=== PATIENT | female | born 1965 | race African-American/Black ===

== ENCOUNTER 2016-11-10 09:03 | Emergency (ER) | payer BC ==
[2016-11-10 09:19] VITALS: BP 153/94; PULSE 100; TEMP 97.8; BMI 33.3
--- NOTE | 2016-11-10 10:02 | PDOC ---
History of Present Illness - General Chief Complaint: Cold Symptoms Stated Complaint: COLD SYMPTOMS Time Seen by Provider: 11/10/16 09:27 Exam Limitations: No Limitations - History of Present Illness Initial Comments: 11/10/16 09:58 Patient came to emergency department with complaints of sinus fullness, runny nose, moist nonproductive cough without fevers or drainage. States has taken only Tylenol for relief of symptoms. Eyes purulent nasal drainage, denies chest pain or palpitations. Has also concerned about an itching scalp, has been told had tinea in the past but is not taking medication for relief Timing/Duration: reports: just prior to arrival, changing over time Possible Cause: Yes: no prior episodes Associated Symptoms: reports: facial pain, headache, nasal congestion (frontal headache with congestion). denies: fever/chills Past History - Travel Traveled outside of the country in the last 30 days: No Close contact w/someone who was outside of country & ill: No - Past Medical History Allergies/Adverse Reactions: Allergies Allergy/AdvReac Type Severity Reaction Status Date / Time No Known Allergies Allergy Verified 11/10/16 09:19 Home Medications: Ambulatory Orders Olmesartan Medoxomil [Benicar (Nf)] 40 mg PO DAILY 08/22/16 HTN: Yes Suicide Attempt (Hx): No - Surgical History Abdominal Surgery: Yes (UMBILICAL HERNIA REPAIR) - Immunization History Td Vaccination: Yes Immunization Up to Date: Yes - Psycho/Social/Smoking Cessation Hx Anxiety: No Suicidal Ideation: No Smoking Status: No Smoking History: Never smoked Have you smoked in the past 12 months: No Number of Cigarettes Smoked Daily: 0 Information on smoking cessation initiated: No Hx Alcohol Use: No Drug/Substance Use Hx: No Substance Use Type: None Review of Systems - Review of Systems Able to Perform ROS?: Yes Is the patient limited Polish proficient: Yes Constitutional: Yes: Symptoms Reported, See HPI, Malaise. No: Fever, Loss of Appetite HEENTM: Yes: Symptoms Reported, See HPI, Nose Congestion, Throat Pain (with postnasal drainage). No: Eye Pain Respiratory: Yes: See HPI. No: Cough, Orthopnea, Wheezing Musculoskeletal: No: Symptoms Reported Integumentary: Yes: Symptoms Reported Neurological: Yes: See HPI, Headache. No: Symptoms reported All Other Systems: Reviewed and Negative *Physical Exam - Vital Signs Last Vital Signs Temp Pulse Resp BP Pulse Ox 97.8 F 100 H 18 153/94 97 11/10/16 09:16 11/10/16 09:16 11/10/16 09:16 11/10/16 09:16 11/10/16 09:16 - Physical Exam General Appearance: Yes: Nourished, Appropriately Dressed, Apparent Distress, Mild Distress HEENT: positive: JANEE, TMs Normal (congested but landmarks easily visualized), Nasal Congestion (clear), Rhinorrhea, Sinus Tenderness. negative: Pharynx Normal Neck: positive: Supple. negative: Lymphadenopathy (R), Lymphadenopathy (L) Respiratory/Chest: positive: Lungs Clear, Normal Breath Sounds. 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 No evidence of bacterial infection therefore we will use conservative measures only and have follow-up with PMD as needed. Tinea capitis, encouraged to follow-up with dermatology or private physician for long- term antifungal treatment *DC/Admit/Observation/Transfer Diagnosis at time of Disposition: Common cold virus - Discharge Dispostion Disposition: HOME Condition at time of disposition: Stable Admit: No - Patient Instructions Printed Discharge Instructions: DI for Common Cold Additional Instructions: Rest, drink lots of fluids: Teas, water, soups, Pedialyte Saltwater gargles Steamy showers/seem to face break up mucus Avoid contact with others until fevers and cough resolved Lots of handwashing and good hygiene Continue [id number] medications for symptomatic relief Tylenol or Motrin for fever and pain Followup with private physician in one to 2 days as needed Return to emergency department for worsened symptoms, fevers, dehydration - Post Discharge Activity Work/School Note: Back to Work
== END 2016-11-10 10:03 | disposition home or self-care (01) ==
LOC: JERFT 09:03
DX: J00 Acute nasopharyngitis [common cold] (principal)
CPT/HCPCS: 99281-25

== ENCOUNTER 2017-02-26 17:52 | Emergency (ER) | payer BC ==
[2017-02-26 18:01] VITALS: BMI 34.9
[2017-02-26] MEDS ORDERED: ONDANSETRON 4 MG/2 ML VIAL IVPUSH STA (19:45)
[2017-02-26] MEDS ORDERED: SODIUM CHLORIDE 1,000 ML IV STA ×2 (19:45→22:20)
--- NOTE | 2017-02-26 19:45 | PDOC ---
History of Present Illness - General History Source: Patient <Leodan Odom - Last Filed: 02/27/17 01:56> - General History Source: Patient Exam Limitations: No Limitations - History of Present Illness Initial Comments: 02/26/17 19:51 The patient is a 51 year old female with significant past medical history of hypertension who presents to the ED for diffuse abdominal pain and nausea that began this morning. Patient reports she was in her usual state of health prior to going to bed last night and her last meal was around 11pm last night. States she woke up with diffuse abdominal pain and nausea. Denies vomiting and diarrhea. Denies any sick contacts or recent travels. The patient denies fever, chills, cough, SOB, chest pain, and palpitations. Allergies: NKDA Social History: No alcohol, tobacco, or drug use reported. Past Surgical History: umbilical hernia repair PCP: Dr. Alexander Carrillo <Chloé Ya - Last Filed: 02/27/17 02:40> - General Chief Complaint: Nausea Stated Complaint: NAUSEA Time Seen by Provider: 02/26/17 19:45 Past History - Past Medical History HTN: Yes (NO MEDS SINCE 02/24, RAN OUT) Suicide Attempt (Hx): No - Surgical History Abdominal Surgery: Yes (UMBILICAL HERNIA REPAIR) - Immunization History Td Vaccination: Yes Immunization Up to Date: Yes - Psycho/Social/Smoking Cessation Hx Anxiety: No Suicidal Ideation: No Smoking Status: No Smoking History: Never smoked Have you smoked in the past 12 months: No Number of Cigarettes Smoked Daily: 0 Hx Alcohol Use: No Drug/Substance Use Hx: No Substance Use Type: None <Nita Odoman - Last Filed: 02/27/17 01:56> <Chloé Ya - Last Filed: 02/27/17 02:40> - Past Medical History Allergies/Adverse Reactions: Allergies Allergy/AdvReac Type Severity Reaction Status Date / Time No Known Allergies Allergy Verified 02/27/17 01:48 Home Medications: Ambulatory Orders Ondansetron [Zofran *Odt*] 4 mg SL TID #30 od.tablet 02/27/17 Review of Systems - Review of Systems Able to Perform ROS?: Yes Comments:: 02/26/17 19:51 CONSTITUTIONAL: Absent: fever, no chills, no fatigue EYES: Absent: visual changes ENT: Absent: ear pain, no sore throat CARDIOVASCULAR: Absent: chest pain, no palpitations RESPIRATORY: Absent: cough, no SOB GI: +diffuse abdominal pain, nausea Absent: no vomiting, no constipation, no diarrhea GENITOURINARY: Absent: dysuria, no frequency, no hematuria MUSCULOSKELETAL: Absent: back pain, no arthralgia, no myalgia SKIN: Absent: rash NEURO: Absent: headache <Chloé Ya - Last Filed: 02/27/17 02:40> *Physical Exam - Vital Signs Last Vital Signs Temp Pulse Resp BP Pulse Ox 98.0 F 103 H 20 178/109 96 02/26/17 17:58 02/26/17 17:58 02/26/17 17:58 02/26/17 17:58 02/26/17 17:58 <Leodan Odom - Last Filed: 02/27/17 01:56> - Vital Signs Last Vital Signs Temp Pulse Resp BP Pulse Ox 98.0 F 103 H 20 178/109 96 02/26/17 17:58 02/26/17 17:58 02/26/17 17:58 02/26/17 17:58 02/26/17 17:58 - Physical Exam Comments: 02/26/17 19:51 GENERAL: Well-appearing, well-nourished. No apparent distress. HEENT: Normocephalic, atraumatic. PERRL, EOM intact. CARDIOVASCULAR: Normal S1, S2. Regular rate and rhythm. PULMONARY: Clear to auscultation bilaterally. ABDOMEN: Soft, non-distended, non-tender. EXTREMITIES: Normal ROM in all four extremities. No gross deformities. SKIN: Warm, dry. No rash NEUROLOGICAL: No focal neurological deficits. 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 The visualized cardiac chambers are normal size and configuration. Normal unenhanced liver, gallbladder, pancreas, spleen, adrenal glands and kidneys. The stomach and abdominal small and large bowel are normal. There is no aortic aneurysm. There is no significant retroperitoneal lymphadenopathy. Moderate-sized fat containing ventral hernia is noted. The pelvic small and large bowel are normal. The appendix is normal. Uterus is enlarged at 13.1 cm and contains a small calcified fibroid. There is a 2.4 cm simple left ovarian cyst and a 2.6 cm right ovarian dermoid cyst.. Urinary bladder is unremarkable. There is no pelvic free fluid. No discrete pelvic lymphadenopathy is identified. IMPRESSION: No definite acute pathology or significant interval change. Small right ovarian dermoid cyst and small left ovarian simple cyst without pelvic free fluid. Enlarged uterus with small calcified fibroid. Moderate-sized fat containing ventral hernia. <Chloé Ya - Last Filed: 02/27/17 02:40> Medical Decision Making - Medical Decision Making 02/26/17 22:50 Dr. Odom: The scribe's documentation has been prepared under my direction and personally reviewed by me in its entirery. I confirm that the note above accurately reflects all work, treatment, procedures, and medical decision making performed by me. <Leodan Odom - Last Filed: 02/27/17 01:56> *DC/Admit/Observation/Transfer - Discharge Dispostion Admit: No <Leodan Odom - Last Filed: 02/27/17 01:56> - Attestations Scribe Attestion: 02/26/17 19:52 Documentation prepared by Chloé Ya, acting as medical imaging specialist for Leodan Odom MD/. <Chloé Ya - Last Filed: 02/27/17 02:40> Diagnosis at time of Disposition: Abdominal pain Qualifiers: Abdominal location: generalized Qualified Code(s): R10.84 - Generalized abdominal pain Ventral hernia Qualifiers: Obstruction and gangrene presence: without obstruction or gangrene Qualified Code(s): K43.9 - Ventral hernia without obstruction or gangrene - Discharge Dispostion Disposition: HOME Condition at time of disposition: Stable - Prescriptions Prescriptions: Ondansetron [Zofran *Odt*] 4 mg SL TID #30 od.tablet - Referrals Referrals: Alexander Carrillo MD [Primary Care Provider] - Yosef Manzanares MD [Staff Physician] - - Patient Instructions Printed Discharge Instructions: DI for Abdominal Pain-Adult, DI for Ventral Hernia - Post Discharge Activity Work/School Note: Back to Work
[2017-02-26 20:16] LABS: URINE APPEARANCE CLEAR; URINE BILIRUBIN NEGATIVE (NEGATIVE); URINE COLOR YELLOW; URINE GLUCOSE (UA) NEGATIVE (NEGATIVE); URINE KETONE TRACE (NEGATIVE); URINE LEUK ESTERASE NEGATIVE (NEGATIVE); URINE NITRITE NEGATIVE (NEGATIVE); URINE UROBILINOGEN NEGATIVE E.U./dl (0.2-1.0)
[2017-02-26 20:27] LABS: URINE BLOOD 3+ (NEGATIVE); URINE PROTEIN 1+ (NEGATIVE)
[2017-02-26 20:31] LABS: URINE MUCUS MANY; URINE RBC 3 /hpf (0-3); URINE WBC 4 /hpf (3-5)
[2017-02-26] MEDS ORDERED: ONDANSETRON 4 MG/2 ML VIAL ONE (21:05)
[2017-02-26 22:02] LABS: BASOPHIL 0.4 % (0-2.0); EOSINOPHIL 2.7 % (0-4.5); MCH 28.7 pg (25.7-33.7); MCHC 32.2 g/dl (32.0-36.0); MEAN CELL VOLUME 89.2 fl (80-96); MEAN PLT VOLUME 8.7 fl (7.5-11.1); NEUTROPHILS 64.1 % (42.8-82.8); PLATELET COUNT 233 K/MM3 (134-434); RDW 14.4 % (11.6-15.6); WHITE BLOOD COUNT 10.2 K/mm3 (4.0-10.0)
[2017-02-26 22:26] LABS: ALBUMIN 3.6 g/dl (3.4-5.0); ALK PHOS 59 U/L (45-117); ANION GAP 8 (8-16); BILIRUBIN,TOTAL 0.6 mg/dL (0.2-1.0); CALCIUM 8.6 mg/dL (8.5-10.1); CO2 27 mmol/L (21-32); CREATININE 0.9 mg/dL (0.55-1.02); GLUCOSE,RANDOM 97 mg/dL (74-106); SGOT/AST 63 U/L (15-37); SGPT/ALT 72 U/L (12-78); TOT PROT 7.7 g/dl (6.4-8.2)
[2017-02-27 06:01] VITALS: BP 168/90; PULSE 89; TEMP 98
== END 2017-02-27 02:04 | disposition home or self-care (01) ==
LOC: JER 17:52
PROC: 3E0337Z Introduction of Electrolytic and Water Balance Substance into Peripheral Vein, Percutaneous Approach (ICD-10-PCS; principal; 2017-02-26)
PROC: 3E033GC Introduction of Other Therapeutic Substance into Peripheral Vein, Percutaneous Approach (ICD-10-PCS; 2017-02-26)
DX: R10.84 Generalized abdominal pain (principal); K43.9 Ventral hernia without obstruction or gangrene
CPT/HCPCS: 36415; 74176-TC; 80053; 81003; 81015; 83690; 83735; 84703; 85025; 99282-25

== ENCOUNTER 2017-04-02 21:59 | Emergency (ER) | payer BC ==
[2017-04-02 22:04] VITALS: TEMP 98.2; BMI 34.1
--- NOTE | 2017-04-02 22:11 | PDOC ---
History of Present Illness - General Chief Complaint: Pain Stated Complaint: LT ARM PAIN Time Seen by Provider: 04/02/17 22:08 Past History - Past Medical History Allergies/Adverse Reactions: Allergies Allergy/AdvReac Type Severity Reaction Status Date / Time No Known Allergies Allergy Verified 04/02/17 22:04 Home Medications: Ambulatory Orders Ondansetron [Zofran *Odt*] 4 mg SL TID #30 od.tablet 02/27/17 HTN: Yes (NO MEDS SINCE 02/24, RAN OUT) Suicide Attempt (Hx): No - Surgical History Abdominal Surgery: Yes (UMBILICAL HERNIA REPAIR) - Immunization History Td Vaccination: Yes Immunization Up to Date: Yes - Psycho/Social/Smoking Cessation Hx Anxiety: No Suicidal Ideation: No Smoking Status: No Smoking History: Never smoked Have you smoked in the past 12 months: No Number of Cigarettes Smoked Daily: 0 Hx Alcohol Use: No Drug/Substance Use Hx: No Substance Use Type: None *Physical Exam - Vital Signs Last Vital Signs Temp Pulse Resp BP Pulse Ox 98.2 F 103 H 20 141/94 100 04/02/17 22:01 04/02/17 22:01 04/02/17 22:01 04/02/17 22:01 04/02/17 22:01
[2017-04-03] MEDS ORDERED: IBUPROFEN 400 MG TABLET (FP) PO ONE ×2 (00:40→00:43)
--- NOTE | 2017-04-03 00:40 | PDOC ---
History of Present Illness - General History Source: Patient Exam Limitations: No Limitations - History of Present Illness Initial Comments: 04/03/17 00:53 The patient is a 51 year old female with significant past medical history of hypertension who presents to the ED for increasing pain to the left elbow. Patient reports she has had left elbow pain for the past several months that has progressively gotten worse in the past several weeks, but comes in today for increasing and worsening pain. Denies any trauma to the area. Also complaints of some weakness to the left arm secondary to the pain. Denies any radiation of the pain or paresthesias. Patient is right hand dominant. The patient denies fever, chills, cough, SOB, chest pain, and palpitations. The patient denies abdominal pain, nausea, vomiting, and diarrhea. Allergies: NKDA Social History: No alcohol, tobacco, or drug use reported. Past Surgical History: umbilical hernia repair PCP: None reported <Chloé Ya - Last Filed: 04/03/17 00:56> - General History Source: Patient <Leodan Odom - Last Filed: 04/03/17 02:16> - General Chief Complaint: Pain Stated Complaint: LT ARM PAIN Time Seen by Provider: 04/02/17 22:08 Past History <Chloé Ya - Last Filed: 04/03/17 00:56> - Past Medical History HTN: Yes (NO MEDS SINCE 02/24, RAN OUT) Suicide Attempt (Hx): No - Surgical History Abdominal Surgery: Yes (UMBILICAL HERNIA REPAIR) - Immunization History Td Vaccination: Yes Immunization Up to Date: Yes - Psycho/Social/Smoking Cessation Hx Anxiety: No Suicidal Ideation: No Smoking Status: No Smoking History: Never smoked Have you smoked in the past 12 months: No Number of Cigarettes Smoked Daily: 0 Hx Alcohol Use: No Drug/Substance Use Hx: No Substance Use Type: None <Leodan Odom - Last Filed: 04/03/17 02:16> - Past Medical History Allergies/Adverse Reactions: Allergies Allergy/AdvReac Type Severity Reaction Status Date / Time No Known Allergies Allergy Verified 04/02/17 22:04 Home Medications: Ambulatory Orders Ibuprofen 800 mg PO TID #30 tablet 04/03/17 Methocarbamol [Robaxin -] 1,000 mg PO TID #60 tablet 04/03/17 Olmesartan Medoxomil [Benicar (Nf)] 40 mg PO DAILY 04/03/17 Review of Systems - Review of Systems Able to Perform ROS?: Yes Comments:: 04/03/17 00:53 CONSTITUTIONAL: Absent: fever, no chills, no fatigue EYES: Absent: visual changes ENT: Absent: ear pain, no sore throat CARDIOVASCULAR: Absent: chest pain, no palpitations RESPIRATORY: Absent: cough, no SOB GI: Absent: abdominal pain, no nausea, no vomiting, no constipation, no diarrhea GENITOURINARY: Absent: dysuria, no frequency, no hematuria MUSCULOSKELETAL: +left elbow pain, left arm weakness secondary to pain Absent: back pain, no myalgia SKIN: Absent: rash NEURO: Absent: headache <Chloé Ya - Last Filed: 04/03/17 00:56> *Physical Exam - Vital Signs Last Vital Signs Temp Pulse Resp BP Pulse Ox 98.2 F 103 H 20 141/94 100 04/02/17 22:01 04/02/17 22:01 04/02/17 22:01 04/02/17 22:01 04/02/17 22:01 - Physical Exam Comments: 04/03/17 00:54 GENERAL: Well-appearing, well-nourished. No apparent distress. HEENT: Normocephalic, atraumatic. PERRL, EOM intact. CARDIOVASCULAR: Normal S1, S2. Regular rate and rhythm. PULMONARY: Clear to auscultation bilaterally. ABDOMEN: Soft, non-distended, non-tender. EXTREMITIES: Normal ROM in all four extremities. Mildly tender in the lateral epicondyle of the left elbow. No gross deformities. SKIN: Warm, dry. No rash NEUROLOGICAL: No focal neurological deficits. <Chloé Ya - Last Filed: 04/03/17 00:56> - Vital Signs Last Vital Signs Temp Pulse Resp BP Pulse Ox 98.2 F 103 H 20 141/94 100 04/02/17 22:01 04/02/17 22:01 04/02/17 22:01 04/02/17 22:01 04/02/17 22:01 <Leodan Odom - Last Filed: 04/03/17 02:16> ED Treatment Course - Medications Given in the ED: ED Medications Discontinued Medications Generic Name Dose Route Start Last Admin Trade Name Misbah PRN Reason Stop Dose Admin Ibuprofen 800 mg 04/03/17 00:40 04/03/17 00:45 Motrin - PO 04/03/17 00:41 800 mg ONCE ONE Administration <Chloé Ya - Last Filed: 04/03/17 00:56> - RADIOLOGY Radiology Studies Ordered: Category Date Time Status ELBOW-LEFT [RAD] Stat Radiology 04/03/17 00:37 Ordered <Leodan Odom - Last Filed: 04/03/17 02:16> Medical Decision Making - Medical Decision Making 04/03/17 02:16 Dr. Odom: The scribe's documentation has been prepared under my direction and personally reviewed by me in its entirery. I confirm that the note above accurately reflects all work, treatment, procedures, and medical decision making performed by me. <Leodan Odom - Last Filed: 04/03/17 02:16> *DC/Admit/Observation/Transfer - Attestations Scribe Attestion: 04/03/17 00:56 Documentation prepared by Chloé Ya, acting as medical claims specialist for Leodan Odom MD/DO. <Chloé Ya - Last Filed: 04/03/17 00:56> - Discharge Dispostion Admit: No <Leodan Odom - Last Filed: 04/03/17 02:16> Diagnosis at time of Disposition: Elbow pain, left - Discharge Dispostion Disposition: HOME Condition at time of disposition: Stable - Prescriptions Prescriptions: Ibuprofen 800 mg PO TID #30 tablet Methocarbamol [Robaxin -] 1,000 mg PO TID #60 tablet - Referrals Referrals: Jimy Gooden MD [Staff Physician] - - Patient Instructions Printed Discharge Instructions: DI for Lateral Epicondylitis (Tennis Elbow), DI for Elbow Pain
[2017-04-03] MEDS ORDERED: METHOCARBAMOL 500 MG TABLET PO ONE (02:13)
[2017-04-03] MEDS ORDERED: METHOCARBAMOL 500 MG TABLET ONE (02:23)
[2017-04-03 02:27] VITALS: BP 135/86; PULSE 97
== END 2017-04-03 02:27 | disposition home or self-care (01) ==
LOC: JERFT 21:59 → JER 21:59
DX: M25.522 Pain in left elbow (principal)
CPT/HCPCS: 73070-TC-LT; 99282-25

== ENCOUNTER 2017-06-15 15:40 | Emergency (ER) | payer BC ==
[2017-06-15 15:52] VITALS: BP 151/91; PULSE 89; TEMP 97.6; BMI 33.7
[2017-06-15] MEDS ORDERED: KETOROLAC TROMETHAMINE 60 MG/2 ML VIAL IM ONE (17:19)
[2017-06-15] MEDS ORDERED: KETOROLAC TROMETHAMINE 60 MG/2 ML VIAL ONE (17:24)
--- NOTE | 2017-06-15 17:25 | PDOC ---
History of Present Illness - General Chief Complaint: Pain Stated Complaint: RT ARM SENSATION Time Seen by Provider: 06/15/17 16:43 History Source: Patient Exam Limitations: No Limitations - History of Present Illness Initial Comments: 06/15/17 17:24 06/15/17 17:25 My Chief complaint: Right shoulder pain with tingling of right forearm and hand History of present illness: Patient is a 51-year-old female with a history of hypertension and left elbow tendinitis here today with worsening pain in her right shoulder with tingling of her right forearm and hand. Patient denies any injury to her shoulder any heavy lifting or carrying of heavy items. Patient denies any neck pain. Patient denies any elbow pain. Patient reports that she's had this right shoulder pain since winter 2015. 06/15/17 17:28 Occurred: reports: other (for months per pt ) Severity: reports: severe (rt. shoulder) Upper Extremity Pain Location: right: other Method of Injury: reports: unknown Modifying Factors: improves with: None Extremity Pain Location - Extremity Pain Location Extremity Pain Locations: right: other (shoulder) Past History - Past Medical History Allergies/Adverse Reactions: Allergies Allergy/AdvReac Type Severity Reaction Status Date / Time No Known Allergies Allergy Verified 06/15/17 15:52 Home Medications: Ambulatory Orders NK [No Known Home Medication] 06/15/17 HTN: Yes Suicide Attempt (Hx): No - Surgical History Abdominal Surgery: Yes (UMBILICAL HERNIA REPAIR) - Immunization History Td Vaccination: Yes Immunization Up to Date: Yes - Psycho/Social/Smoking Cessation Hx Anxiety: No Suicidal Ideation: No Smoking Status: No Smoking History: Never smoked Have you smoked in the past 12 months: No Number of Cigarettes Smoked Daily: 0 Hx Alcohol Use: No Drug/Substance Use Hx: No Substance Use Type: None Review of Systems - Review of Systems Able to Perform ROS?: Yes Constitutional: No: Symptoms Reported HEENTM: No: Symptoms Reported Respiratory: No: Symptoms reported Cardiac (ROS): No: Symptoms Reported ABD/GI: No: Symptoms Reported : No: Symptoms Reported Musculoskeletal: Yes: Joint Pain (right shoulder ). No: Joint Swelling Integumentary: No: Symptoms Reported Neurological: Yes: Tingling (rt. forearm/hand) *Physical Exam - Vital Signs Last Vital Signs Temp Pulse Resp BP Pulse Ox 97.6 F 89 18 151/91 95 06/15/17 15:46 06/15/17 15:46 06/15/17 15:46 06/15/17 15:46 06/15/17 15:46 - Physical Exam General Appearance: Yes: Appropriately Dressed Neck: negative: Tender, Decreased range of motion, Lymphadenopathy (R), Lymphadenopathy (L), Rigidity, Tender lateral, Tender midline Respiratory/Chest: positive: Lungs Clear, Normal Breath Sounds. negative: Chest Tender, Respiratory Distress Cardiovascular: positive: Regular Rhythm, Regular Rate, S1, S2 Comments:: 06/15/17 17:22 radial pulse 4 + rt. 06/15/17 17:24 Rectal Exam: negative: other Extremity: positive: Normal Capillary Refill, Normal Inspection, Normal Range of Motion (rt. shoulder ), Tender (rt. shoulder ). negative: Swelling Integumentary: positive: Normal Color Neurologic: positive: Normal Response, Motor Strength 5/5 (rt. shoulder, elbow, wrist and all digits rt. hand ), Respond to painful stimul (rt. arm ), Responsive. negative: Numbness, Sensory Deficit (rt. arm ) Procedures - Consent Consent obtained: From Patient - Splinting Progress: 06/15/17 18:20 SHOULDER IMMOBILIZER RIGHT Medical Decision Making - Medical Decision Making 06/15/17 17:28 Patient is a 51-year-old female with a history of hypertension and left elbow tendinitis here today with worsening pain in her right shoulder with tingling of her right forearm and hand. Patient denies any injury to her shoulder any heavy lifting or carrying of heavy items. Patient denies any neck pain. Patient denies any elbow pain. Patient reports that she's had this right shoulder pain since winter 2015. RIGHT SHOULDER PAIN WITH TINGLING RT. FOREAR, HAND R/O DONITA ABNORMALITY PLAN: XRAY RT. SHOULDER DEGENERATIVE CHANGES NOTED TORADOL 30 MG IM NOW 06/15/17 18:10 FOLLOW UP WITH ORTHOPEDIST TOMORROW SHOULDER IMMOBILIZER RIGHT 06/15/17 18:26 *DC/Admit/Observation/Transfer Diagnosis at time of Disposition: Shoulder pain, right Qualifiers: Chronicity: acute Qualified Code(s): M25.511 - Pain in right shoulder - Discharge Dispostion Disposition: HOME Condition at time of disposition: Stable - Referrals Referrals: Alexander Carrillo MD [Primary Care Provider] - Cordell Jeffries MD [Staff Physician] - - Patient Instructions Additional Instructions: Avoid any strenuous activities or exercise using your right arm Wear shoulder immobilizer during the day take off at night Follow-up with orthopedist tomorrow Return to emergency room if symptoms worsen or new symptoms develop Take Naprosyn as previously prescribed Patient voiced understanding of discharge instructions and all questions were answered Thank you for choosing [facility] for your medical needs - Post Discharge Activity Work/School Note: Back to Work
== END 2017-06-15 18:27 | disposition home or self-care (01) ==
LOC: JERFT 15:40
PROC: 3E0233Z Introduction of Anti-inflammatory into Muscle, Percutaneous Approach (ICD-10-PCS; principal; 2017-06-15)
DX: M19.011 Primary osteoarthritis, right shoulder (principal); R20.2 Paresthesia of skin
CPT/HCPCS: 73030-TC-RT; 99281-25

== ENCOUNTER 2017-10-17 12:44 | Emergency (ER) | payer BC ==
[2017-10-17 13:14] VITALS: BP 157/102; PULSE 87; TEMP 98.3; BMI 34.1
--- NOTE | 2017-10-17 15:00 | PDOC ---
History of Present Illness - General Chief Complaint: Ear Problem Stated Complaint: EAR&THROAT PAIN Time Seen by Provider: 10/17/17 14:09 - History of Present Illness Initial Comments: 10/17/17 14:52 CHIEF COMPLAINT: left ear and throat pain HISTORY OF PRESENT ILLNESS: 52 yo F with hx of HTN presents to [facility] with left ear and L sided throat pain x 1 week accompanied by "a little dizziness." Patient denies any blurry vision, slurred speech, weakness, headache, fever, chills, vomiting, diarrhea. No recent travel or sick contacts. PAST MEDICAL HISTORY: Denies past medical history FAMILY HISTORY: Denies SOCIAL HISTORY: Denies tobacco, alcohol, illicit drug use. SURGICAL HISTORY: Denies ALLERGIES: No known drug allergies REVIEW OF SYSTEMS General/Constitutional: Denies fever or chills. Denies weakness. HEENT: L ear pain x 1 week, throat pain when swallowing. Denies change in vision. Denies ear pain or discharge. Cardiovascular: Denies chest pain or shortness of breath. Respiratory: Denies cough, wheezing, or hemoptysis. Gastrointestinal: Denies nausea, vomiting, diarrhea. Genitourinary: Denies dysuria, frequency, or change in urination. Musculoskeletal: Denies joint or muscle swelling or pain. Denies neck or back pain. Skin: Denies rash or easy bruising. Neurologic: "Some dizziness." Denies vertigo. PHYSICAL EXAM General Appearance: Well-appearing, appropriately dressed. No apparent distress. HEENT: Erythema and dullness to L TM. Tonsils 1+, nonerythematous, no exudate. EOMI, PERRLA, normal ENT inspection, normal voice, TMs normal, pharynx normal. No conjunctival pallor. No photophobia, scleral icterus. Neck: Supple. Trachea midline. No tenderness, rigidity, carotid bruit, stridor , lymphadenopathy, or thyromegaly. Respiratory/Chest: Lungs CTAB. Cardiovascular: RRR. S1, S2. Musculoskeletal/Extremities: Normal inspection. FROM of all extremities, normal capillary refill. Pelvis Stable. No CVA tenderness. No tenderness to extremities, pedal edema, swelling, erythema or deformity. Integumentary: Appropriate color, dry, warm. 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 Fully oriented, alert. Appropriate mood/affect. Motor strength 5/5. No appreciable EOM palsy, facial droop or sensory deficit. Past History - Past Medical History Allergies/Adverse Reactions: Allergies Allergy/AdvReac Type Severity Reaction Status Date / Time No Known Allergies Allergy Verified 10/17/17 13:11 Home Medications: Ambulatory Orders Amoxicillin - [Amoxicillin 500mg Capsule -] 500 mg PO BID #14 capsule 10/17/17 COPD: No HTN: Yes - Surgical History Abdominal Surgery: Yes (UMBILICAL HERNIA REPAIR) - Immunization History Td Vaccination: Yes Immunization Up to Date: Yes - Suicide/Smoking/Psychosocial Hx Smoking Status: No Smoking History: Never smoked Have you smoked in the past 12 months: No Number of Cigarettes Smoked Daily: 0 Hx Alcohol Use: No Drug/Substance Use Hx: No Substance Use Type: None *Physical Exam - Vital Signs Last Vital Signs Temp Pulse Resp BP Pulse Ox 98.3 F 87 16 157/102 97 10/17/17 13:11 10/17/17 13:11 10/17/17 13:11 10/17/17 13:11 10/17/17 13:11 Medical Decision Making - Medical Decision Making 10/17/17 14:59 52 yo F with hx of HTN presents to [facility] with left ear and L sided throat pain x 1 week accompanied by "a little dizziness." Clinical presentation consistent with AOM, vertigo likely secondary to ear infection. Patient is neurologically intact. Will rx amoxicillin. Advised patient to take medication as prescribed and follow up with PMD if symptoms persist. Advised patient of signs and symptoms for return to ED. Patient verbalized understanding and agrees to plan. *DC/Admit/Observation/Transfer Diagnosis at time of Disposition: Otitis media Qualifiers: Otitis media type: other nonsuppurative Chronicity: acute Laterality: left - Discharge Dispostion Disposition: HOME Condition at time of disposition: Stable Admit: No - Prescriptions Prescriptions: Amoxicillin - [Amoxicillin 500mg Capsule -] 500 mg PO BID #14 capsule - Referrals Referrals: Alexander Carrillo MD [Primary Care Provider] - - Patient Instructions Printed Discharge Instructions: Middle Ear Infection Additional Instructions: Please take medications as prescribed and follow up with your primary care doctor next week. If you develop any new headache, weakness, change in vision, loss of memoery, slurred speech, or any change in baseline behavior, or you develop any new or worsening symptoms, please return to the ER. - Post Discharge Activity
== END 2017-10-17 15:15 | disposition home or self-care (01) ==
LOC: JERFT 12:44
DX: H65.192 Other acute nonsuppurative otitis media, left ear (principal)
CPT/HCPCS: 99281-25

== ENCOUNTER 2018-01-26 17:25 | Emergency (ER) | payer BC ==
[2018-01-26 17:38] VITALS: BP 139/95; PULSE 85; TEMP 98.3; BMI 35.9
--- NOTE | 2018-01-26 17:38 | PDOC ---
Rapid Medical Evaluation Time Seen by Provider: 01/26/18 17:35 Medical Evaluation: Allergies Allergy/AdvReac Type Severity Reaction Status Date / Time No Known Allergies Allergy Verified 10/17/17 13:11 01/26/18 17:35 I have performed a brief in-person evaluation of this patient. The patient presents with a chief complaint of: "something with my ankle, sometimes i can't even walk" x 3 weeks, denies hormone use, recent travel, prolonged sitting, "has tried motrin, naproxen" Pertinent physical exam findings: tenderness to medial L ankle I have ordered the following: left ankle x-ray The patient will proceed to the ED for further evaluation. Discharge Disposition - Diagnosis Ankle pain, left - Referrals Referrals: Alexander Carrillo MD [Primary Care Provider] - - Patient Instructions - Post Discharge Activity
--- NOTE | 2018-01-26 18:23 | PDOC ---
History of Present Illness - General Chief Complaint: Pain Stated Complaint: LEFT LEG PAIN Time Seen by Provider: 01/26/18 17:35 History Source: Patient - History of Present Illness Occurred: reports: other Severity: Yes: moderate Lower Extremity Pain Location: left: ankle Past History - Past Medical History Allergies/Adverse Reactions: Allergies Allergy/AdvReac Type Severity Reaction Status Date / Time No Known Allergies Allergy Verified 01/26/18 17:35 Home Medications: Ambulatory Orders NK [No Known Home Medication] 01/26/18 COPD: No HTN: Yes - Surgical History Abdominal Surgery: Yes (UMBILICAL HERNIA REPAIR) - Immunization History Td Vaccination: Yes Immunization Up to Date: Yes - Suicide/Smoking/Psychosocial Hx Smoking Status: No Smoking History: Never smoked Have you smoked in the past 12 months: No Number of Cigarettes Smoked Daily: 0 Information on smoking cessation initiated: No Hx Alcohol Use: No Drug/Substance Use Hx: No Substance Use Type: None Review of Systems - Review of Systems Constitutional: No: Chills, Fever Musculoskeletal: Yes: Joint Pain. No: Joint Swelling *Physical Exam - Vital Signs Last Vital Signs Temp Pulse Resp BP Pulse Ox 98.3 F 85 18 139/95 100 01/26/18 17:35 01/26/18 17:35 01/26/18 17:35 01/26/18 17:35 01/26/18 17:35 - Physical Exam General Appearance: Yes: Appropriately Dressed. No: Apparent Distress HEENT: positive: Normal Voice Neck: positive: Supple Respiratory/Chest: negative: Respiratory Distress Extremity: positive: Normal Inspection, Tender. negative: Swelling Integumentary: positive: Dry, Warm Neurologic: positive: Fully Oriented, Alert, Normal Mood/Affect Medical Decision Making - Medical Decision Making 01/26/18 18:21 52-year-old female, history of hypertension, here with atraumatic left ankle pain 3 weeks. States pain constant and worse with weight bearing. Taking over -the-counter meds with some relief but states pain persists so decided to come in for evaluation today. Denies any joint swelling, fever or chills. No history of gout. No new medication. Patient well-appearing and stable with significant tenderness to palpation to medial malleolus of left ankle. No obvious swelling and no signs of infection. X-ray ordered from triage and pending 01/26/18 18:55 X-ray read as findings consistent with old fracture to medial malleolus, no acute fractures identified as per radiologist. Patient informed of report and deneis any known fx to site. Augusto applied for comfort. Patient to continue taking [id number] pain meds as needed. Ortho referral given at this point *DC/Admit/Observation/Transfer Diagnosis at time of Disposition: Ankle pain Qualifiers: Chronicity: acute Laterality: left Qualified Code(s): M25.572 - Pain in left ankle and joints of left foot - Discharge Dispostion Disposition: HOME Condition at time of disposition: Good - Referrals Referrals: Alexander Carrillo MD [Primary Care Provider] - Cordell Jeffries MD [Staff Physician] - - Patient Instructions Printed Discharge Instructions: DI for Ankle Pain Additional Instructions: There was an old injury seen to the inner aspect of your ankle on x-ray. There were no new fractures identified by the radiologist. Wear Augusto for comfort and take Motrin as needed [id number]. At this point you should follow-up with an orthopedic. Please call Dr. Jeffries for appointment - Post Discharge Activity
== END 2018-01-26 19:01 | disposition home or self-care (01) ==
LOC: JERFT 17:25
DX: M25.572 Pain in left ankle and joints of left foot (principal); Z87.81 Personal history of (healed) traumatic fracture; I10 Essential (primary) hypertension
CPT/HCPCS: 73610-TC-LT-FY; 99281-25

== ENCOUNTER 2018-07-09 06:10 | Inpatient (IN) | payer BC, OTHER ==
[2018-07-08 11:33] VITALS: BMI 33.9
[2018-07-09] MEDS ORDERED: LIDOCAINE 1%/EPI 1:100000 (20 ML MULTI DOSE VIAL) ONE (07:13)
[2018-07-09] MEDS ORDERED: THROMBIN (BOVINE) 20,000 UNIT VIAL TP ONE ×2 (07:13→09:52)
[2018-07-09] MEDS ORDERED: BUPIVACAINE HCL/PF 0.5% (5MG/ML) 10 ML VIAL ONE (07:14)
[2018-07-09] MEDS ORDERED: GENTAMICIN SO4 80 MG/2 ML VIAL ONE (07:15)
[2018-07-09] MEDS ORDERED: PROPOFOL 20 ML ONE ×2 (07:37)
[2018-07-09] MEDS ORDERED: MIDAZOLAM HCL 2 MG/2 ML SINGLE DOSE VIAL ONE (07:37)
[2018-07-09] MEDS ORDERED: ROCURONIUM BROMIDE 50 MG/5 ML VIAL ONE (07:37)
[2018-07-09] MEDS ORDERED: LIDOCAINE HCL/PF 2% SDV 5ML VIAL ONE (07:41)
[2018-07-09] MEDS ORDERED: ONDANSETRON 4 MG/2 ML VIAL IVPUSH PRN ×2 (07:53→11:20)
[2018-07-09] MEDS ORDERED: PROMETHAZINE HCL 25 MG/1 ML VIAL IVPB PRN (07:53)
[2018-07-09] MEDS ORDERED: DEXAMETHASONE SOD PHOSPHATE 4 MG/1 ML VIAL IVPUSH PRN (07:53)
[2018-07-09] MEDS ORDERED: ONDANSETRON 4 MG/2 ML VIAL ONE ×2 (08:11→10:33)
[2018-07-09] MEDS ORDERED: DEXAMETHASONE SOD PHOSPHATE 4 MG/1 ML VIAL ONE ×2 (08:11→10:33)
[2018-07-09] MEDS ORDERED: DESFLURANE GAS 240 ML BOTTLE IH ONE (08:23)
[2018-07-09] MEDS ORDERED: ceFAZolin SODIUM 1 GM VIAL ONE ×2 (08:23→17:02)
[2018-07-09] MEDS ORDERED: VANCOMYCIN 1,000 MG VIAL (RESTRICTED TO ID ONLY) ONE (08:23)
[2018-07-09] MEDS ORDERED: ceFAZolin SODIUM 1 GM VIAL IVPB ONE (08:24)
[2018-07-09] MEDS ORDERED: VANCOMYCIN 1,000 MG VIAL (RESTRICTED TO ID ONLY) IVPB ONE (08:26)
[2018-07-09] MEDS ORDERED: LIDOCAINE 1%/EPI 1:100000 (50 ML MULTI DOSE VIAL) INF ONE (08:38)
[2018-07-09] MEDS ORDERED: THROMBIN (BOVINE) 5,000 UNIT VIAL TP ONE ×2 (09:45→10:00)
[2018-07-09] MEDS ORDERED: GELATIN, ABSORBABLE 12-7MM EACH SPONGE TP ONE (10:00)
[2018-07-09] MEDS ORDERED: ACETAMINOPHEN INJECTION 100 ML IVPB ONE (10:31)
[2018-07-09] MEDS ORDERED: GLYCOPYRROLATE 0.2 MG/1 ML VIAL ONE (10:32)
[2018-07-09] MEDS ORDERED: NEOSTIGMINE METHYLSULFATE 0.5 MG/ML - 10 ML MDV ONE (10:32)
[2018-07-09] MEDS ORDERED: HYDROmorphone *PCA* 10MG/50ML DISP.SYRIN PCA ONE ×2 (11:13→11:34)
[2018-07-09] MEDS ORDERED: diphenhydrAMINE HCL 25 MG CAPSULE (FP) PO PRN (11:20)
[2018-07-09] MEDS ORDERED: morphine CARPU-JECT 4 MG/1 ML DISP.SYRIN IVPUSH PRN (11:20)
[2018-07-09] MEDS ORDERED: HEPARIN NA (PORCINE) 5,000 UNITS/ML 1ML VIAL SQ SCH (11:30)
[2018-07-09] MEDS: HYDROmorphone *PCA* 10MG/50ML DISP.SYRIN PCA SCH (11:45)
[2018-07-09] MEDS: LACTATED RINGERS SOLUTION 1,000 ML/1,000 ML INFUS.BAG IV SCH (12:03)
[2018-07-09] MEDS: LACTATED RINGERS SOLUTION 1,000 ML IV SCH ×2 (15:41→20:43)
[2018-07-09] MEDS: DOCUSATE SODIUM 100 MG CAPSULE (FP) PO SCH (15:43)
[2018-07-09] MEDS: HEPARIN NA (PORCINE) 5,000 UNITS/ML 1ML VIAL SQ SCH ×2 (15:44→20:59)
[2018-07-09] MEDS ORDERED: DEXTROSE 5%-WATER - 100 ML IVPB ONE (17:03)
[2018-07-09] MEDS: CEFAZOLIN 1 GM in DEXTROSE 5%-WATER - 50 ML IVPB SCH (17:35)
--- NOTE | 2018-07-09 20:06 | HP ---
Admitting History and Physical - Past Medical History ...LMP: 06/11/17 - Smoking History Smoking history: Never smoked Have you smoked in the past 12 months: No Aproximately how many cigarettes per day: 0 - Alcohol/Substance Use Hx Alcohol Use: No Home Medications - Allergies Allergies/Adverse Reactions: Allergies Allergy/AdvReac Type Severity Reaction Status Date / Time No Known Allergies Allergy Verified 01/26/18 17:35 - Home Medications Home Medications: Ambulatory Orders Olmesartan Medoxomil [Benicar (Nf)] 40 mg PO DAILY 08/01/17 Amlodipine Besylate [Norvasc -] 5 mg PO DAILY 07/08/18 Aspirin 81 mg PO DAILY 07/08/18 Physical Examination Vital Signs: Vital Signs Temperature 97.8 F 07/09/18 18:43 Pulse Rate 103 H 07/09/18 18:43 Respiratory Rate 18 07/09/18 18:43 Blood Pressure 122/76 07/09/18 18:43 O2 Sat by Pulse Oximetry (%) 98 07/09/18 14:30
[2018-07-10] MEDS: CEFAZOLIN 1 GM in DEXTROSE 5%-WATER - 50 ML IVPB SCH ×2 (01:33→11:21)
--- NOTE | 2018-07-10 07:52 | PN ---
Progress Note (short form) - Note Progress Note: Pt seen and examined. States she is having some neck pain. Improved slightly with CARDIOPULMONARY TECHNOLOGIST. Has had small sips of water, chapin removed at 6am. Has not been oob yet. Denies any cp,sob, n/v/d, difficulty swallowing/breathing/speaking, headache, dizziness, palpitations, calf pain/edema, decreased motor/sensory Last Vital Signs Temp Pulse Resp BP Pulse Ox 98.3 F 92 H 20 122/83 98 07/10/18 06:17 07/10/18 06:17 07/10/18 06:17 07/10/18 06:17 07/09/18 14:30 Vital Signs Temp 98.3 F 07/10/18 06:17 Pulse 92 H 07/10/18 06:17 Resp 20 07/10/18 06:17 BP 122/83 07/10/18 06:17 Pulse Ox 98 07/09/18 14:30 Intake & Output 07/09/18 07/09/18 07/10/18 11:59 23:59 11:59 Intake Total 1500 2275 Output Total 560 1415 930 Balance 940 860 -930 Intake: IV 1500 1925 LACTATED RINGERS SOLUTION 1925 1,000 ml In 1,000 ml @ 125 mls/hr IV ASDIR TADEO Rx#:[id number] IVPB 150 Oral 200 Output: Drainage 10 65 30 Anterior Neck 45 30 Urine 250 1350 900 Chapin 800 900 Estimated Blood Loss 300 Other: Voiding Method Indwelling Catheter Bowel Movement No PE: Gen: awake, alert, nad, speaking fluently in full sentences Neck: Incision c/d/i, MARCUS in place with < 5ml in reservoir (serosanguineous), tubing stripped Neuro: R 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 RUE 4+/5 biceps/triceps/ wrist ext/flex, LUE 5/5 biceps/triceps/wrist ext/flex. SILT b/l UE's A/P: 53 y/o F w/ PMHx htn, cervical spondylosis now POD1, s/p C4-C5 corpectomy/ fusion. -TOV 6am -will removal marcus today -Will d/c CARDIOPULMONARY TECHNOLOGIST and start PO analgesia -Bowel regimen -Zofran prn -Incentive spirometry -Continue DVT prophylaxis: Heparin sq 5000units q8hrs, TEDS, scds -OOB with assist -PT plan d/w attending Dr Salazar
--- NOTE | 2018-07-10 07:53 | SURG ---
Surgery Skip Pit Worker Note Skip Pit Worker: Swathi Vargas PA-C (Suzy) Date of Service: 07/09/18 Diagnosis: Cervical Spondylosis Procedure: C4-C5 corpectomy, acdf I was present for the entirety of the operative procedure. For further detail, please refer to operative report. Visit type - Case Type Case Type: Scheduled - Emergency Emergency Visit: No - New patient This patient is new to me today: Yes Date on this admission: 07/10/18 - Critical Care Critical Care patient: No
--- NOTE | 2018-07-10 07:56 | OP ---
Operative Note - Note: Operative Date: 07/09/18 Pre-Operative Diagnosis: Cervical spondylosis Operation: C4-C5 corpectomy/anterior cervical disc fusion Findings: as dictated Implants: as dictated Post-Operative Diagnosis: Same as Pre-op Surgeon: Neno Jurado [facility] Counselor: Swathi Vargas Anesthesiologist/TRAINMAN: Genaro Varela Anesthesia: General Specimens Removed: no Estimated Blood Loss (mls): 50 (ml) Drains & Tubes with Location: BROOK drain, subcutaneous Fluid Volume Replaced (mls): 1,300 (ml) Operative Report Dictated: Yes
[2018-07-10 09:04] LABS: HEMATOCRIT 34.8 % (32.4-45.2); HEMOGLOBIN 11.2 GM/dL (10.7-15.3); MCH 29.3 pg (25.7-33.7); MCHC 32.3 g/dl (32.0-36.0); MEAN PLT VOLUME 8.2 fl (7.5-11.1); PLATELET COUNT 233 K/MM3 (134-434); RBC 3.83 M/mm3 (3.60-5.2); RDW 13.3 % (11.6-15.6); WHITE BLOOD COUNT 13.8 K/mm3 (4.0-10.0)
[2018-07-10 09:40] LABS: ANION GAP 5 MMOL/L (8-16); BLOOD UREA NITROGEN 17 mg/dL (7-18); CALCIUM 9.2 mg/dL (8.5-10.1); CHLORIDE 103 mmol/L (98-107); CO2 30 mmol/L (21-32); GLUCOSE,RANDOM 89 mg/dL (74-106); POTASSIUM 4.4 mmol/L (3.5-5.1); SODIUM 138 mmol/L (136-145)
[2018-07-10] MEDS: FERROUS SO4 325 MG TABLET (FP) PO SCH (11:09)
[2018-07-10] MEDS: VALSARTAN 160 MG TABLET (UD) PO SCH (11:09)
[2018-07-10] MEDS: amLODIPine BESYLATE 5 MG TABLET (FP) PO SCH (11:10)
[2018-07-10] MEDS: morphine SULFATE 4 MG/ML VIAL IVPUSH PRN ×3 (11:10→21:26)
[2018-07-10] MEDS: FOLIC ACID 1 MG TABLET (FP) PO SCH (11:10)
[2018-07-10] MEDS ORDERED: ceFAZolin SODIUM 1 GM VIAL ONE (11:18)
[2018-07-10] MEDS ORDERED: DEXTROSE 5%-WATER - 50 ML IVPB ONE (11:19)
--- NOTE | 2018-07-10 14:32 | PROC ---
Procedure Note Procedure: BROOK drain removed with distal tip fully intact. Ostium closed with steri strips as no dermabond available. New 4 x 4 and occlusive dressing applied to entire wound to also include old BROOK site. Tolerated well. Also, QUILTER FIXER dc'd and patient remains on PRN meds for pain relief
[2018-07-10] MEDS: DOCUSATE SODIUM 100 MG CAPSULE (FP) PO SCH ×2 (14:51→21:19)
[2018-07-10] MEDS: HEPARIN NA (PORCINE) 5,000 UNITS/ML 1ML VIAL SQ SCH ×2 (14:52→21:19)
--- NOTE | 2018-07-10 23:27 | PN ---
Progress Note, Physician - Current Medication List Current Medications: Active Medications Amlodipine Besylate (Norvasc -) 5 mg PO DAILY [facility] Last Admin: 07/10/18 11:10 Dose: 5 mg Dexamethasone Sodium Phosphate (Decadron Injection -) 4 mg IVPUSH ONCE PRN PRN Reason: NAUSEA AND/OR VOMITING Diphenhydramine HCl (Benadryl Injection -) 12.5 mg IVPUSH ONCE PRN PRN Reason: FOR ITCHING Diphenhydramine HCl (Benadryl -) 25 mg PO Q6H PRN PRN Reason: FOR ITCHING Docusate Sodium (Colace -) 100 mg PO TID [facility] Last Admin: 07/10/18 21:19 Dose: 100 mg Fentanyl (Sublimaze Injection -) 50 mcg IVPUSH [id number] PRN PRN Reason: PAIN-PACU ORDER X 4 DOSES ONLY Last Admin: 07/09/18 11:20 Dose: 50 mcg Ferrous Sulfate (Feosol -) 325 mg PO DAILY [facility] Last Admin: 07/10/18 11:09 Dose: 325 mg Folic Acid (Folic Acid -) 1 mg PO DAILY [facility] Last Admin: 07/10/18 11:10 Dose: 1 mg Heparin Sodium (Porcine) (Heparin -) 5,000 unit SQ TID [facility] Last Admin: 07/10/18 21:19 Dose: 5,000 unit Morphine Sulfate (Morphine Sulfate) 4 mg IVPUSH Q4H PRN PRN Reason: PAIN LEVEL 7 - 10 Last Admin: 07/10/18 21:26 Dose: 4 mg Ondansetron HCl (Zofran Injection) 4 mg IVPUSH Q4H PRN PRN Reason: NAUSEA AND/OR VOMITING Ondansetron HCl (Zofran Injection) 4 mg IVPUSH Q6H PRN PRN Reason: NAUSEA Oxycodone HCl (Roxicodone -) 5 mg PO Q4H PRN PRN Reason: PAIN LEVEL 1-5 Oxycodone HCl (Roxicodone -) 10 mg PO Q4H PRN PRN Reason: PAIN LEVEL 6-10 Promethazine HCl (Phenergan Injection -) 12.5 mg IVPB Q6H PRN PRN Reason: NAUSEA AND/OR VOMITING Valsartan (Diovan -) 320 mg PO DAILY [facility] Last Admin: 07/10/18 11:09 Dose: 320 mg - Objective Vital Signs: Vital Signs Temperature 98.9 F 07/10/18 16:59 Pulse Rate 77 07/10/18 16:59 Respiratory Rate 20 07/10/18 16:59 Blood Pressure 133/66 07/10/18 16:59 O2 Sat by Pulse Oximetry (%) 98 07/09/18 14:30 Labs: CBC, BMP 07/10/18 07:45 07/10/18 07:45
[2018-07-11] MEDS ORDERED: SODIUM CHLORIDE 250 ML IV STA (03:37)
[2018-07-11] MEDS ORDERED: SODIUM CHLORIDE 1,000 ML IV SCH (03:45)
[2018-07-11 03:52] LABS: ARTERIAL BLOOD GAS BASE EXCESS 4.8 meq/l (-2-2); ARTERIAL BLOOD GAS PCO2 47.4 mmHg (35-45); ARTERIAL BLOOD GAS pH 7.41 (7.35-7.45)
[2018-07-11 03:53] LABS: ALLENS TEST POSITIVE
[2018-07-11 04:03] LABS: BASO % 0.3 % (0-2.0); EOS % 0.2 % (0-4.5); HEMOGLOBIN 10.8 GM/dL (10.7-15.3); LYMPH % 19.3 % (8-40); MCHC 32.7 g/dl (32.0-36.0); MEAN CELL VOLUME 91.9 fl (80-96); MEAN PLT VOLUME 7.7 fl (7.5-11.1); MONO % 8.8 % (3.8-10.2); NEUT % 71.4 % (42.8-82.8); PLATELET COUNT 239 K/MM3 (134-434); RBC 3.59 M/mm3 (3.60-5.2); RDW 13.4 % (11.6-15.6); WHITE BLOOD COUNT 14.4 K/mm3 (4.0-10.0)
--- NOTE | 2018-07-11 04:21 | RAPID ---
Physical Examination Vital Signs: Vital Signs Temperature 98.9 F 07/10/18 16:59 Pulse Rate 77 07/10/18 16:59 Respiratory Rate 20 07/10/18 16:59 Blood Pressure 133/66 07/10/18 16:59 O2 Sat by Pulse Oximetry (%) 96 07/10/18 21:00 Rapid Response - Rapid Response Assessment: Rapid response called at 3:19am. Primary team arrived. As per nursing, patient pressed her alarm button, and when they came in, patient was noted to be altered. Patient reported to be "feeling hot" and "in pain". She was noted to staring blankly at the ceiling, and needed to be stimulated to get a reaction. Patient is POD2 for C4-C5 corpectomy/anterior cervical disc fusion. MANAGER PRIMARY CARE was discontinued this AM. Last morphine given at 9:30pm. General: awake, altered VS: BP 130/70, HI 86, RR 20, Temp 99 Heart: Regular rate and rhythm, no murmur Lungs: clear to auscultation bilaterally BGM - 150 A/P: Altered mental status, unclear etiology EKG ABG CBC, CMP, Lactic acid, Trop, CK IV NS 250ml bolus given IV NS ASDIR Blood culture UA and urine culture Head CT scan ordered
[2018-07-11 04:52] LABS: URINE APPEARANCE CLEAR; URINE BILIRUBIN NEGATIVE (<2.0 mg/dL); URINE COLOR LTYELLOW; URINE GLUCOSE (UA) NEGATIVE (NEGATIVE); URINE KETONE NEGATIVE (NEGATIVE); URINE LEUK ESTERASE NEGATIVE (NEGATIVE); URINE NITRITE NEGATIVE (NEGATIVE); URINE PROTEIN NEGATIVE (NEGATIVE); URINE UROBILINOGEN NEGATIVE mg/dL (0.2-1.0)
[2018-07-11 05:09] LABS: BLOOD UREA NITROGEN 20 mg/dL (7-18); GLUCOSE,RANDOM 134 mg/dL (74-106); SODIUM 138 mmol/L (136-145)
[2018-07-11 05:10] LABS: ALBUMIN 2.9 g/dl (3.4-5.0); ALK PHOS 46 U/L (45-117); ANION GAP 6 MMOL/L (8-16); BILIRUBIN,TOTAL 0.3 mg/dL (0.2-1); CALCIUM 7.9 mg/dL (8.5-10.1); CHLORIDE 102 mmol/L (98-107); CO2 30 mmol/L (21-32); POTASSIUM 3.7 mmol/L (3.5-5.1); SGOT/AST 23 U/L (15-37); SGPT/ALT 16 U/L (13-61); TOT PROT 6.8 g/dl (6.4-8.2)
[2018-07-11] MEDS: DOCUSATE SODIUM 100 MG CAPSULE (FP) PO SCH ×5 (05:50→21:02)
[2018-07-11] MEDS: HEPARIN NA (PORCINE) 5,000 UNITS/ML 1ML VIAL SQ SCH ×4 (05:51→21:02)
[2018-07-11] MEDS: HYDROmorphone *PCA* 10MG/50ML DISP.SYRIN PCA SCH (08:04)
[2018-07-11] MEDS: LACTATED RINGERS SOLUTION 1,000 ML/1,000 ML INFUS.BAG IV SCH (08:04)
[2018-07-11] MEDS: LACTATED RINGERS SOLUTION 1,000 ML IV SCH (08:04)
[2018-07-11] MEDS: amLODIPine BESYLATE 5 MG TABLET (FP) PO SCH (09:21)
[2018-07-11] MEDS: FERROUS SO4 325 MG TABLET (FP) PO SCH (09:21)
[2018-07-11] MEDS: FOLIC ACID 1 MG TABLET (FP) PO SCH (09:21)
[2018-07-11] MEDS: VALSARTAN 160 MG TABLET (UD) PO SCH (09:21)
[2018-07-11] MEDS: oxyCODONE HCL 5 MG TABLET PO PRN ×3 (09:22→23:38)
[2018-07-11] MEDS: ACETAMINOPHEN 325 MG TABLET (FP) PO PRN (11:44)
--- NOTE | 2018-07-11 12:09 | PN ---
Progress Note (short form) - Note Progress Note: Events of this morning reviewed. Head CT unremarkable. Patient is resting comfortably. No sequellae of earlier events noted. No significant abnormalities detected. Patient appears to be recovering well at this point and will be stable for discharge from Neurosurgery standpoint once medically clear.
--- NOTE | 2018-07-11 16:52 | EKG ---
Test Reason : Blood Pressure : / mmHG Vent. Rate : 080 BPM Atrial Rate : 080 BPM P-R Int : 140 ms QRS Dur : 088 ms QT Int : 380 ms P-R-T Axes : 030 -07 003 degrees QTc Int : 438 ms NORMAL SINUS RHYTHM VOLTAGE CRITERIA FOR LEFT VENTRICULAR HYPERTROPHY ABNORMAL ECG WHEN COMPARED WITH ECG OF 22-MAY-2015 09:51, NO SIGNIFICANT CHANGE WAS FOUND Confirmed by KEENAN GOEL, KASSY ([id number]) on 07/11/2018 4:52:05 PM Referred By: Neno Jurado Confirmed By:KASSY HUSSEIN MD
--- NOTE | 2018-07-11 23:37 | PN ---
Progress Note, Physician - Current Medication List Current Medications: Active Medications Acetaminophen (Tylenol -) 650 mg PO Q6H PRN PRN Reason: HEADACHE Last Admin: 07/11/18 11:44 Dose: 650 mg Amlodipine Besylate (Norvasc -) 5 mg PO DAILY [facility] Last Admin: 07/11/18 09:21 Dose: 5 mg Dexamethasone Sodium Phosphate (Decadron Injection -) 4 mg IVPUSH ONCE PRN PRN Reason: NAUSEA AND/OR VOMITING Diphenhydramine HCl (Benadryl Injection -) 12.5 mg IVPUSH ONCE PRN PRN Reason: FOR ITCHING Diphenhydramine HCl (Benadryl -) 25 mg PO Q6H PRN PRN Reason: FOR ITCHING Docusate Sodium (Colace -) 100 mg PO TID [facility] Last Admin: 07/11/18 21:02 Dose: 100 mg Fentanyl (Sublimaze Injection -) 50 mcg IVPUSH [id number] PRN PRN Reason: PAIN-PACU ORDER X 4 DOSES ONLY Last Admin: 07/09/18 11:20 Dose: 50 mcg Ferrous Sulfate (Feosol -) 325 mg PO DAILY [facility] Last Admin: 07/11/18 09:21 Dose: 325 mg Folic Acid (Folic Acid -) 1 mg PO DAILY [facility] Last Admin: 07/11/18 09:21 Dose: 1 mg Heparin Sodium (Porcine) (Heparin -) 5,000 unit SQ TID [facility] Last Admin: 07/11/18 21:02 Dose: 5,000 unit Morphine Sulfate (Morphine Sulfate) 4 mg IVPUSH Q4H PRN PRN Reason: PAIN LEVEL 7 - 10 Last Admin: 07/10/18 21:26 Dose: 4 mg Ondansetron HCl (Zofran Injection) 4 mg IVPUSH Q4H PRN PRN Reason: NAUSEA AND/OR VOMITING Ondansetron HCl (Zofran Injection) 4 mg IVPUSH Q6H PRN PRN Reason: NAUSEA Oxycodone HCl (Roxicodone -) 5 mg PO Q4H PRN PRN Reason: PAIN LEVEL 1-5 Last Admin: 07/11/18 18:57 Dose: 5 mg Oxycodone HCl (Roxicodone -) 10 mg PO Q4H PRN PRN Reason: PAIN LEVEL 6-10 Promethazine HCl (Phenergan Injection -) 12.5 mg IVPB Q6H PRN PRN Reason: NAUSEA AND/OR VOMITING Valsartan (Diovan -) 320 mg PO DAILY [facility] Last Admin: 07/11/18 09:21 Dose: 320 mg - Objective Vital Signs: Vital Signs Temperature 99.3 F 07/11/18 18:00 Pulse Rate 90 07/11/18 18:00 Respiratory Rate 20 07/11/18 18:00 Blood Pressure 125/74 07/11/18 18:00 O2 Sat by Pulse Oximetry (%) 97 07/11/18 09:00 Labs: CBC, BMP 07/11/18 03:50 07/11/18 03:50
[2018-07-12] MEDS: HEPARIN NA (PORCINE) 5,000 UNITS/ML 1ML VIAL SQ SCH ×3 (06:35→21:04)
[2018-07-12] MEDS: oxyCODONE HCL 5 MG TABLET PO PRN (06:35)
[2018-07-12] MEDS: DOCUSATE SODIUM 100 MG CAPSULE (FP) PO SCH ×3 (06:35→21:01)
--- NOTE | 2018-07-12 07:49 | PN ---
Progress Note (short form) - Note Progress Note: Pain management: Patient seen at bedside, RN DELIVERY discontinued today, Patient states that oxycodoe helps her. No further intervention from the dept of anesthesiology at this time.
[2018-07-12] MEDS: FOLIC ACID 1 MG TABLET (FP) PO SCH (11:27)
[2018-07-12] MEDS: amLODIPine BESYLATE 5 MG TABLET (FP) PO SCH (11:27)
[2018-07-12] MEDS: FERROUS SO4 325 MG TABLET (FP) PO SCH (11:27)
[2018-07-12] MEDS: ACETAMINOPHEN 325 MG TABLET (FP) PO PRN ×2 (11:27→21:01)
[2018-07-12] MEDS: VALSARTAN 160 MG TABLET (UD) PO SCH (11:27)
--- NOTE | 2018-07-12 16:17 | PN ---
Progress Note (short form) - Note Progress Note: Patient with significant improvement overnight. She states: "I'm much better." Reduced Left shoulder pain. Incision is clean, dry and intact. Patient should be ready for discharge soon.
[2018-07-13] MEDS: DOCUSATE SODIUM 100 MG CAPSULE (FP) PO SCH ×3 (05:55→22:36)
[2018-07-13] MEDS: HEPARIN NA (PORCINE) 5,000 UNITS/ML 1ML VIAL SQ SCH ×3 (05:56→22:49)
[2018-07-13] MEDS ORDERED: PT OWN MED DRAWER 7, Y5N ONE (10:51)
[2018-07-13] MEDS: FERROUS SO4 325 MG TABLET (FP) PO SCH (10:55)
[2018-07-13] MEDS: FOLIC ACID 1 MG TABLET (FP) PO SCH (10:56)
[2018-07-13] MEDS: VALSARTAN 160 MG TABLET (UD) PO SCH (10:56)
[2018-07-13] MEDS: amLODIPine BESYLATE 5 MG TABLET (FP) PO SCH (10:56)
--- NOTE | 2018-07-13 14:42 | PN ---
Progress Note (short form) - Note Progress Note: Patient is clear for discharge from a Neurosurgery standpoint. Wound is clean, dry and intact. Will see patient in my office in 2 weeks.
[2018-07-13] MEDS ORDERED: ALBUTEROL SO4 2.5/IPRATROPIUM 0.5 INH SOL 3 ML VIAL.NEB. NEB PRN (15:48)
[2018-07-13] MEDS: ACETAMINOPHEN 325 MG TABLET (FP) PO PRN (16:34)
--- NOTE | 2018-07-13 22:02 | PN ---
Progress Note, Physician History of Present Illness: Pt developed SOB today w/ O2 sat 92-95% - Current Medication List Current Medications: Active Medications Acetaminophen (Tylenol -) 650 mg PO Q6H PRN PRN Reason: HEADACHE Last Admin: 07/13/18 16:34 Dose: 650 mg Albuterol/Ipratropium (Duoneb -) 1 amp NEB Q6H PRN PRN Reason: SHORTNESS OF BREATH Amlodipine Besylate (Norvasc -) 5 mg PO DAILY [facility] Last Admin: 07/13/18 10:56 Dose: 5 mg Dexamethasone Sodium Phosphate (Decadron Injection -) 4 mg IVPUSH ONCE PRN PRN Reason: NAUSEA AND/OR VOMITING Diphenhydramine HCl (Benadryl Injection -) 12.5 mg IVPUSH ONCE PRN PRN Reason: FOR ITCHING Diphenhydramine HCl (Benadryl -) 25 mg PO Q6H PRN PRN Reason: FOR ITCHING Docusate Sodium (Colace -) 100 mg PO TID [facility] Last Admin: 07/13/18 13:48 Dose: 100 mg Ferrous Sulfate (Feosol -) 325 mg PO DAILY [facility] Last Admin: 07/13/18 10:55 Dose: 325 mg Folic Acid (Folic Acid -) 1 mg PO DAILY [facility] Last Admin: 07/13/18 10:56 Dose: 1 mg Heparin Sodium (Porcine) (Heparin -) 5,000 unit SQ TID [facility] Last Admin: 07/13/18 13:48 Dose: 5,000 unit Ondansetron HCl (Zofran Injection) 4 mg IVPUSH Q4H PRN PRN Reason: NAUSEA AND/OR VOMITING Ondansetron HCl (Zofran Injection) 4 mg IVPUSH Q6H PRN PRN Reason: NAUSEA Promethazine HCl (Phenergan Injection -) 12.5 mg IVPB Q6H PRN PRN Reason: NAUSEA AND/OR VOMITING Valsartan (Diovan -) 320 mg PO DAILY [facility] Last Admin: 07/13/18 10:56 Dose: 320 mg - Objective Vital Signs: Vital Signs Temperature 98.6 F 07/13/18 15:09 Pulse Rate 116 H 07/13/18 15:35 Respiratory Rate 22 H 07/13/18 15:35 Blood Pressure 136/84 07/13/18 15:35 O2 Sat by Pulse Oximetry (%) 95 07/13/18 09:00 Constitutional: Yes: Well Nourished Cardiovascular: Yes: WNL, Regular Rate and Rhythm Respiratory: Yes: WNL, Regular, CTA Bilaterally Gastrointestinal: Yes: WNL, Normal Bowel Sounds, Soft Labs: CBC, BMP 07/11/18 03:50 07/11/18 03:50 Problem List - Problems (1) Dyspnea Assessment/Plan: CTA of chest was negative for PE It showed atelactasis Encourage ambulation Bethany wadsworth prn DC planning for am Code(s): R06.00 - DYSPNEA, UNSPECIFIED (2) Cervical post-laminectomy syndrome Code(s): M96.1 - POSTLAMINECTOMY SYNDROME, NOT ELSEWHERE CLASSIFIED (3) HTN (hypertension) Code(s): I10 - ESSENTIAL (PRIMARY) HYPERTENSION (4) Anemia Code(s): D64.9 - ANEMIA, UNSPECIFIED
[2018-07-14] MEDS: DOCUSATE SODIUM 100 MG CAPSULE (FP) PO SCH ×2 (06:26→13:22)
[2018-07-14] MEDS: HEPARIN NA (PORCINE) 5,000 UNITS/ML 1ML VIAL SQ SCH ×2 (06:26→13:22)
--- NOTE | 2018-07-14 08:07 | PN ---
Progress Note (short form) - Note Progress Note: POD #4 Alert. Sitting in chair at bedside. Wearing her c-collar as instructed. She's been oob and ambulating unassisted. Voiding spontaneosuly. States she feels much better compared today. Shoulder pain subsided now s/p surgery and is very happy about that. Apparently, patient was supposed to be discharged yesterday but developed SOb and room air SpO2 92-95%. A chest CT was ordered to r/o PE. Findings: atelectasis and very small pleural effusion. She was encouraged to cont aggressive mobilization and pulmonary toileting. since then...no complaints. Denies n/v/f/c, CP, SOB or MCCULLOUGH. Last Vital Signs Temp Pulse Resp BP Pulse Ox 99.9 F H 93 H 20 140/86 95 //18 06:00 07/14/18 06:00 18 06:00 18 06:00 07/13/18 09:00 Gen: nad Neck: dressing c/d/i. no hematoma. trach midline. Neuro: gmnvi bilat LE: scds bilat. soft. nt. Problem List - Problems (1) Cervical spondylosis Assessment/Plan: POD #4 s/p C4-C5 corpectomy/anterior cervical disc fusion Doing very well. Wants to go home. Cont to wear your c-collar 23/24/hrs/day. may remove while bathing and or eating. F/u instructions filled out in dc planning tab Cleared for discharge once cleared medically. Above plan discussed with Dr. Jurado and agrees. Code(s): M47.812 - SPONDYLOSIS W/O MYELOPATHY OR RADICULOPATHY, CERVICAL REGION
[2018-07-14] MEDS ORDERED: PT OWN MED DRAWER 7, Y5N ONE (09:52)
[2018-07-14] MEDS: FOLIC ACID 1 MG TABLET (FP) PO SCH (09:53)
[2018-07-14] MEDS: VALSARTAN 160 MG TABLET (UD) PO SCH (09:53)
[2018-07-14] MEDS: amLODIPine BESYLATE 5 MG TABLET (FP) PO SCH (09:53)
[2018-07-14] MEDS: FERROUS SO4 325 MG TABLET (FP) PO SCH (09:53)
--- NOTE | 2018-07-14 11:48 | EKG ---
Test Reason : Blood Pressure : / mmHG Vent. Rate : 096 BPM Atrial Rate : 096 BPM P-R Int : 148 ms QRS Dur : 090 ms QT Int : 364 ms P-R-T Axes : 051 -02 038 degrees QTc Int : 459 ms NORMAL SINUS RHYTHM MINIMAL VOLTAGE CRITERIA FOR LVH, MAY BE NORMAL VARIANT BORDERLINE ECG WHEN COMPARED WITH ECG OF 11-JUL-2018 03:39, T WAVE INVERSION NO LONGER EVIDENT IN INFERIOR LEADS Confirmed by Yosef Acevedo MD ([id number]) on 07/14/2018 11:47:32 AM Referred By: Neno Jurado Confirmed By:Yosef Acevdeo MD
[2018-07-14 13:11] VITALS: BP 145/82; PULSE 117
[2018-07-14 13:12] VITALS: TEMP 98.1
== END 2018-07-14 13:44 | disposition home or self-care (01) | DRG 321 ==
LOC: JSAMEDAYSX 06:10 → EDSTATUS 08:00 → J8W 15:16
PROVIDERS: ADMIT Internal Medicine; ATTEND Internal Medicine
PROC: 0RG20A0 Fusion of 2 or more Cervical Vertebral Joints with Interbody Fusion Device, Anterior Approach, Anterior Column, Open Approach (ICD-10-PCS; 2018-07-09)
PROC: 0PB30ZZ Excision of Cervical Vertebra, Open Approach (ICD-10-PCS; principal; 2018-07-09 08:00)
DX: M47.12 Other spondylosis with myelopathy, cervical region (principal); J90 Pleural effusion, not elsewhere classified; I10 Essential (primary) hypertension; E78.5 Hyperlipidemia, unspecified; R41.82 Altered mental status, unspecified; R06.00 Dyspnea, unspecified; J98.11 Atelectasis; D64.9 Anemia, unspecified
CPT/HCPCS: 36415; 36600; 70450-TC; 71046-TC-FY; 71275-TC; 72125-TC; 76000-TC-FY; 80048; 80053; 81003; 82550; 82553; 82803; 82962; 83605; 84484; 84703; 85025; 85027; 86850; 86900; 86901; 87040; 87086; 93005; 93010; 94640; 94760; 97116-GP; 97161-GP; J0131; J1644; J7030; J7620

== ENCOUNTER 2018-07-21 05:40 | Emergency (ER) | payer OTHER ==
[2018-07-21 06:56] VITALS: BMI 34.1
--- NOTE | 2018-07-21 08:03 | PDOC ---
History of Present Illness - General Chief Complaint: Nausea Stated Complaint: NAUSEA, S/P SURGERY - History of Present Illness Initial Comments: 07/21/18 07:54 53 yo F w/ PMH HTN, umbilical hernia repair (age 12), C4-C5 anterior cervical disc fusion 07/09/18, p/w MCCULLOUGH since dc 1 wk ago and acute intermittent nonradiating 07/15 periumbilical pain w/ nausea x1d. Pt says pain began after eating [employer] pot pie chicken yesterday. pt says she has had this pain before after eating greasy foods. Pt has heart burn but says this pain is different. Pt feels nauseas but is trying not to vomit since she just had surgery in cervical region and still is wearing her c-collar. Pt took zofran but it did not help. Pt also having MCCULLOUGH x1wk. Of note during hospital course pt was found to have SOB and room air SpO2 92-95%. A chest CT was ordered to r/o PE. Findings: atelectasis and very small pleural effusion. She was encouraged to cont aggressive mobilization and pulmonary toileting. Pt says she is still using inncentive spirometer. Can walk 1 block w/o getting SOB. Denies fevers, chills, cp, urinary sxs, diarrhea, blood in stools, OCPs, hx clots, recent travel, leg swelling or leg pain, hx STDs. Of note, pt says her heart normally beats fast LMP: 06/11/18. pt has in the past had a period of 8mo w/o MP. SH: denies smoke, etoh , drugs FH: ovarian cancer mom 45yo Past History - Past Medical History Allergies/Adverse Reactions: Allergies Allergy/AdvReac Type Severity Reaction Status Date / Time No Known Allergies Allergy Verified 07/21/18 06:43 Home Medications: Ambulatory Orders Olmesartan Medoxomil [Benicar -] 40 mg PO DAILY 08/01/17 Amlodipine Besylate [Norvasc -] 5 mg PO DAILY 07/08/18 Aspirin 81 mg PO DAILY 07/08/18 Ferrous Sulfate [Feosol] 325 mg PO DAILY #30 ud 07/13/18 Anemia: Yes Asthma: No Cancer: No Cardiac Disorders: No CVA: No COPD: No CHF: No Dementia: No Diabetes: No GI Disorders: No Disorders: No HTN: Yes Hypercholesterolemia: No Liver Disease: No Seizures: No Thyroid Disease: No - Surgical History Abdominal Surgery: Yes (UMBILICAL HERNIA REPAIR) - Immunization History Td Vaccination: Yes Immunization Up to Date: Yes - Suicide/Smoking/Psychosocial Hx Smoking Status: No Smoking History: Never smoked Have you smoked in the past 12 months: No Number of Cigarettes Smoked Daily: 0 Information on smoking cessation initiated: No Hx Alcohol Use: No Drug/Substance Use Hx: No Substance Use Type: None Hx Substance Use Treatment: No Review of Systems - Review of Systems Constitutional: Yes: See HPI HEENTM: Yes: See HPI Respiratory: Yes: See HPI Cardiac (ROS): Yes: See HPI ABD/GI: Yes: See HPI : Yes: See HPI Musculoskeletal: Yes: See HPI Integumentary: Yes: See HPI Neurological: Yes: See HPI Endocrine: Yes: See HPI Hematologic/Lymphatic: Yes: See HPI *Physical Exam - Vital Signs Last Vital Signs Temp Pulse Resp BP Pulse Ox 97.4 F L 101 H 19 129/91 98 07/21/18 05:45 07/21/18 05:45 07/21/18 05:45 07/21/18 05:45 07/21/18 05:45 - Physical Exam Comments: 07/21/18 08:07 General: Well-nourished, NAD, cervical collar HEENT: NCAT, MMM Neck: cervical collar no lymphadenopathy Respiratory: CTAB, diminished sounds b/l cardio: tachycardia RR S1 S2 no m/r/g. Abdomen: +BS , soft, ND TTP periumbilical Extremities: radial 2+ b/l. Warm, dry, no cyanosis, edema, clubbing or calf tenderness. Skin: intact. no rashes Neuro: Alert and oriented x3, strength sensation grossly intact. Psych: Normal mood and affect ED Treatment Course - LABORATORY CBC & Chemistry Diagram: 07/21/18 08:46 07/21/18 10:24 Medical Decision Making - Medical Decision Making 07/21/18 08:38 53 yo F w/ PMH HTN, umbilical hernia repair (age 12), C4-C5 anterior cervical disc fusion 07/10/18, p/w MCCULLOUGH since dc 1 wk ago and acute intermittent nonradiating 07/15 periumbilical pain w/ nausea x1d. tachycardia, other vitals unremarkable Ddx Abd pain: incarcerated umbilical hernia, SBO, gastroenteritis, pancreatitis, gallstones MCCULLOUGH: pt was recently w/u for PE and was neg. low suspicion PE. likely 2/2 atelectisis and effusions found on recent prior CT scan. also consider PNA, ACS , pneumothorax, anemia -CBC, CMP, lipase, D-dimer, trop, EKG, CXR, UA, preg test -IV zofran, morphine 2mg -IVF bolus -CT A/P w/ con pending preg test 07/21/18 13:22 neg preg UA neg, mild leukocytosis, other labs grossly unremarkable trop neg D-dimer pos CTA chest for PE eval 07/21/18 13:25 CT A/P shows mod supraumbilical fat hernia that is not incarcerated and shows no stranding CTA chest shows no PE. minimal atelectic changes. no pneumothorax or pleural effusions pt is stable and ready for discharge we will give referral to surgery for hernia repair *DC/Admit/Observation/Transfer Diagnosis at time of Disposition: Umbilical hernia without obstruction or gangrene - Discharge Dispostion Disposition: HOME Condition at time of disposition: Stable Decision to Admit order: No - Referrals Referrals: Alexander Carrillo MD [Primary Care Provider] - Alexander Epstein MD [Staff Physician] - - Patient Instructions Printed Discharge Instructions: Abdominal Hernia Additional Instructions: You came in for abdominal pain and shortness of breath Your CT of the chest showed no clots or fluids or signs of infection. Please continue using your incentive spirometer as directed. This will help expand your lungs and help with your breathing and oxygenation Your CT of the stomach showed a fat hernia by the umbilical region (near the bellybutton), which is likely what is causing your pain. There is currently no medical or surgical emergency at this time. We will refer you however, to surgeon Dr. Epstein to be evaluated for repair of the hernia. Please follow up with your primary physician within 1 week Please follow up with Dr Epstein within 1 week If you experience any worsening of abdominal pain, fevers, chest pain, worsening shortness of breath, nausea, vomit, diarrhea, please call 911 or come back to the ER. - Post Discharge Activity
[2018-07-21] MEDS ORDERED: morphine CARPU-JECT 4 MG/1 ML DISP.SYRIN IVPUSH ONE (08:37)
[2018-07-21] MEDS ORDERED: ONDANSETRON 4 MG/2 ML VIAL IVPUSH ONE (08:37)
[2018-07-21] MEDS ORDERED: SODIUM CHLORIDE 1,000 ML IV STA (08:37)
[2018-07-21] MEDS ORDERED: morphine SULFATE 4 MG/ML VIAL ONE ×2 (08:51→09:21)
[2018-07-21] MEDS ORDERED: ONDANSETRON 4 MG/2 ML VIAL ONE (08:51)
--- NOTE | 2018-07-21 09:03 | PDOC ---
Attending Attestation - Resident Resident Name: Terence Renee - ED Attending Attestation I have performed the following: I have examined & evaluated the patient, The case was reviewed & discussed with the resident, I agree w/resident's findings & plan - HPI HPI: 07/21/18 09:00 53-year-old female history of hypertension, distant history of umbilical hernia repair at age 12, status post cervical spine surgery on 07/09 presents now with abdominal pain since last night. Pain is sharp and sudden in onset, lasts for a few minutes, then resolved. It associated with nausea but is otherwise localized to the supraumbilical region, no associated fevers or chills. The patient has been slightly constipated since surgery, but had a normal bowel movement yesterday that was nonbloody. Denies any urinary complaints. Patient reports recurrence of her umbilical hernia pain intermittently for the last 10 years, never to this severity and has never been evaluated by general surgery. Last episode was in the ED, otherwise asymptomatic at the time of my evaluation. Patient also complaining of breathing discomfort since her surgery, described as a heaviness when she takes a deep breath in. While postop in the hospital, patient was having dyspnea at rest and was evaluated with CTA chest which ruled out PE but noted small effusions bilaterally. Patient now is not dyspneic at rest but reports some shortness of breath with exertion, denies any chest pain or fevers or chills or cough. Postop course otherwise uncomplicated with expected discomfort, maintained in c- collar. - Physicial Exam PE: 07/21/18 09:03 afebrile, heart rate about 100, O2 sat normal on room air Well-appearing, speaking full sentences, no acute distress C-collar in place Heart is regular, lungs with slightly decreased breath sounds at the bases but otherwise good air entry without crackles or wheezing Abdomen is soft and nondistended, very focally tender in the supraumbilical region with palpable defect but no palpable herniation, bowel sounds are within normal limits, no guarding or rebound. No right quadrant tenderness or CVA tenderness No lower leg swelling or tenderness - Medical Decision Making 07/21/18 09:05 53-year-old female postop day 12 of cervical spine surgery presents with intermittent abdominal pain since last night, seems like acute exacerbation of her otherwise chronic periumbilical hernia symptoms. No evidence of obstruction or incarceration, currently asymptomatic and afebrile. Patient also with persistent but improving dyspnea since her surgery. She was ruled out for PE with CTA while in the hospital, her presentation remains atypical for PE. Also atypical for ACS, question persistent or worsening effusion, rule out infection, question pleurisy. Check labs including troponin and lipase Chest x-ray to further evaluate the previous effusions seen on CAT scan We'll send d-dimer given overall low clinical suspicion CAT scan of the abdomen and pelvis to rule out incarceration or partial obstruction Pain meds, nausea meds, IV fluids Reassess 07/21/18 13:32 ctap confirms fat-containing supraumbilical hernia, no bowel content. no other abnormality. cta chest shows atelectasis but resolution of effusion, no ptx, no pneumonia, no PE. stable for d/c, will give gen surg referral with return precautions, pt agrees. Heart Score/ECG Review #1 ECG reviewed & interpreted by me at: 10:21 General ECG Interpretation: Sinus Rhythm, Normal Rate (87), Normal Intervals ( borderline LVH), No acute ischemic changes Compared to previous ECG there are: No significant change (c/w 07/13/18)
[2018-07-21 09:10] LABS: BASO % 0.6 % (0-2.0); EOS % 2.3 % (0-4.5); HEMATOCRIT 35.4 % (32.4-45.2); LYMPH % 18.7 % (8-40); MCH 30.6 pg (25.7-33.7); MCHC 33.8 g/dl (32.0-36.0); MEAN CELL VOLUME 90.5 fl (80-96); MONO % 6.9 % (3.8-10.2); NEUT % 71.5 % (42.8-82.8); PLATELET COUNT 403 K/MM3 (134-434); RBC 3.91 M/mm3 (3.60-5.2); RDW 13.3 % (11.6-15.6); WHITE BLOOD COUNT 11.1 K/mm3 (4.0-10.0)
[2018-07-21 09:33] LABS: URINE APPEARANCE SLCLOUDY; URINE BILIRUBIN NEGATIVE (<2.0 mg/dL); URINE COLOR YELLOW; URINE GLUCOSE (UA) NEGATIVE (NEGATIVE); URINE KETONE NEGATIVE (NEGATIVE); URINE LEUK ESTERASE TRACE (NEGATIVE); URINE NITRITE NEGATIVE (NEGATIVE); URINE PROTEIN NEGATIVE (NEGATIVE); URINE UROBILINOGEN NEGATIVE mg/dL (0.2-1.0)
[2018-07-21 09:42] LABS: EPI CELLS MODERATE /HPF (FEW); URINE MUCUS RARE
[2018-07-21 11:04] LABS: ALBUMIN 3.2 g/dl (3.4-5.0); ALK PHOS 53 U/L (45-117); ANION GAP 9 MMOL/L (8-16); BILIRUBIN,TOTAL 0.4 mg/dL (0.2-1); BLOOD UREA NITROGEN 19 mg/dL (7-18); CALCIUM 8.7 mg/dL (8.5-10.1); CHLORIDE 106 mmol/L (98-107); CO2 26 mmol/L (21-32); CREATININE 0.9 mg/dL (0.55-1.3); GLUCOSE,RANDOM 85 mg/dL (74-106); LIPASE 76 U/L (73-393); POTASSIUM 4.4 mmol/L (3.5-5.1); SGOT/AST 18 U/L (15-37); SGPT/ALT 22 U/L (13-61); SODIUM 141 mmol/L (136-145); TOT PROT 7.4 g/dl (6.4-8.2)
[2018-07-21 13:07] VITALS: BP 116/69; PULSE 86; TEMP 97.9
--- NOTE | 2018-07-21 17:03 | EKG ---
Test Reason : Blood Pressure : / mmHG Vent. Rate : 087 BPM Atrial Rate : 087 BPM P-R Int : 150 ms QRS Dur : 086 ms QT Int : 378 ms P-R-T Axes : 049 -05 014 degrees QTc Int : 454 ms NORMAL SINUS RHYTHM MODERATE VOLTAGE CRITERIA FOR LVH, MAY BE NORMAL VARIANT BORDERLINE ECG WHEN COMPARED WITH ECG OF 13-JUL-2018 18:04, NO SIGNIFICANT CHANGE WAS FOUND Confirmed by MD BLANQUITA, SONIA ([id number]) on 07/21/2018 5:03:18 PM Referred By: Confirmed By:SONIA JUARES MD
== END 2018-07-21 13:56 | disposition home or self-care (01) ==
LOC: JER 05:40
PROC: 3E033GC Introduction of Other Therapeutic Substance into Peripheral Vein, Percutaneous Approach (ICD-10-PCS; principal; 2018-07-21)
PROC: 3E033NZ Introduction of Analgesics, Hypnotics, Sedatives into Peripheral Vein, Percutaneous Approach (ICD-10-PCS; 2018-07-21)
DX: K42.9 Umbilical hernia without obstruction or gangrene (principal); Z98.1 Arthrodesis status
CPT/HCPCS: 36415; 71275-TC; 74177-TC; 80053; 81003; 81015; 83690; 84484; 84703; 85025; 85379; 93005; 93010; 99282-25; J7030

== ENCOUNTER 2018-09-09 23:17 | Emergency (ER) | payer OTHER ==
[2018-09-09 23:25] VITALS: BMI 34.9
--- NOTE | 2018-09-10 00:16 | PDOC ---
History of Present Illness - General Chief Complaint: Pain, Acute Stated Complaint: NECK PAIN Time Seen by Provider: 09/10/18 00:16 - History of Present Illness Initial Comments: 09/10/18 00:16 Ms. Starks is a 53 yo female w/ pmh of HTN, C4-C5 anterior cervical disc fusion (07/09), umbilical hernia repair (distant) who presents for evaluation of sore throat since cervical fusion and small amount of blood in her sputum today. Patient reports she has had throat pain since her surgery however believes it has gotten worse over the last two days to now be worsened by swallowing. She coughed today and noticed a small amount of blood in her sputum. These two factors together prompted her arrival. Ms. Starks reports she has been in close contact with Dr. Jurado her surgeon and is scheduled to see him on Friday. Patient also reports she has had intermittent chills over the past 2 days. Patient is still wearing her c-collar and reports she was told to wear it for 3 months post-op. Patient also complaining of bilateral shoulder pain. The patient denies chest pain, shortness of breath, headache and dizziness. Denies fever, nausea, vomit, diarrhea and constipation. Denies dysuria, frequency, urgency and hematuria. Past History - Past Medical History Allergies/Adverse Reactions: Allergies Allergy/AdvReac Type Severity Reaction Status Date / Time No Known Allergies Allergy Verified 09/09/18 23:23 Home Medications: Ambulatory Orders Olmesartan Medoxomil [Benicar -] 40 mg PO DAILY 08/01/17 Amlodipine Besylate [Norvasc -] 5 mg PO DAILY 07/08/18 Aspirin 81 mg PO DAILY 07/08/18 Ferrous Sulfate [Feosol] 325 mg PO DAILY #30 ud 07/13/18 Anemia: Yes Asthma: No Cancer: No Cardiac Disorders: No CVA: No COPD: No CHF: No Dementia: No Diabetes: No GI Disorders: No Disorders: No HTN: Yes Hypercholesterolemia: No Liver Disease: No Seizures: No Thyroid Disease: No - Surgical History Abdominal Surgery: Yes (UMBILICAL HERNIA REPAIR) - Immunization History Td Vaccination: Yes Immunization Up to Date: Yes - Suicide/Smoking/Psychosocial Hx Smoking Status: No Smoking History: Never smoked Have you smoked in the past 12 months: No Number of Cigarettes Smoked Daily: 0 Information on smoking cessation initiated: No Hx Alcohol Use: No Drug/Substance Use Hx: No Substance Use Type: None Hx Substance Use Treatment: No Review of Systems - Review of Systems Comments:: 09/10/18 00:28 GENERAL/CONSTITUTIONAL: +Chills as described. No fever or chills. No weakness. HEAD, EYES, EARS, NOSE AND THROAT: +Sore throat as described. No change in vision. No ear pain or discharge. CARDIOVASCULAR: No chest pain or shortness of breath RESPIRATORY: No cough, wheezing, or hemoptysis. GASTROINTESTINAL: No nausea, vomiting, diarrhea or constipation. GENITOURINARY: No dysuria, frequency, or change in urination. MUSCULOSKELETAL: +Shoulder /neck pain as described. SKIN: No rash NEUROLOGIC: No headache, vertigo, loss of consciousness, or change in strength/ sensation. ENDOCRINE: No increased thirst. No abnormal weight change HEMATOLOGIC/LYMPHATIC: No anemia, easy bleeding, or history of blood clots. ALLERGIC/IMMUNOLOGIC: No hives or skin allergy. *Physical Exam - Vital Signs Last Vital Signs Temp Pulse Resp BP Pulse Ox 98.1 F 108 H 16 124/81 97 09/09/18 23:21 09/09/18 23:21 09/09/18 23:21 09/09/18 23:21 09/09/18 23:21 Moderate Sedation - Procedure Monitoring Vital Signs: Procedure Monitoring Vital Signs Temperature 98.1 F 09/09/18 23:21 Pulse Rate 108 H 09/09/18 23:21 Respiratory Rate 16 09/09/18 23:21 Blood Pressure 124/81 09/09/18 23:21 O2 Sat by Pulse Oximetry (%) 97 09/09/18 23:21 ED Treatment Course - LABORATORY CBC & Chemistry Diagram: 09/10/18 01:30 09/10/18 01:30 Medical Decision Making - Medical Decision Making 09/10/18 03:40 Ms. tSarks is a 53 yo female w/ pmh as described who presents for symptoms c/ w neck pain 2/2 frequent c-collar use vs. post-op changes vs. abscess. Patient evaluated using XR and CT imaging. XR negative for acute process. CT likewise negative. Labs as below grossly wnl. Discussed merits of admission with patient vs. discharge for close follow-up outpatient in morning and patient elected to contact Dr. Jurado during office hours later today. No concern for acute process at this time. Patient given CT results and will f/u. Discharging to home. Laboratory Results - last 24 hr 09/10/18 09/10/18 09/10/18 00:35 01:30 01:30 WBC 11.5 H RBC 3.88 Hgb 11.7 Hct 34.4 MCV 88.6 MCH 30.1 MCHC 34.0 RDW 13.3 Plt Count 234 D MPV 8.1 Absolute Neuts (auto) 7.5 Neutrophils % 65.2 Lymphocytes % 23.6 D Monocytes % 8.0 Eosinophils % 2.9 Basophils % 0.3 Nucleated RBC % 0 Sodium 139 Potassium 3.8 Chloride 105 Carbon Dioxide 26 Anion Gap 8 BUN 16 Creatinine 1.1 Creat Clearance w eGFR 51.96 Random Glucose 104 Calcium 8.6 Total Bilirubin 0.5 AST 18 ALT 19 Alkaline Phosphatase 69 Total Protein 7.9 Albumin 3.4 Group A Strep Rapid Negative 09/10/18 03:42 *DC/Admit/Observation/Transfer Diagnosis at time of Disposition: Neck pain, Sore throat - Discharge Dispostion Disposition: HOME - Referrals Referrals: Alexander Carrillo MD [Primary Care Provider] - Neno Jurado MD, FAANS [Staff Physician] - - Patient Instructions Printed Discharge Instructions: DI for Neck Pain Additional Instructions: You were evaluated today in the Emergency Room for your neck pain. Labs, Xray, and CT were performed for evaluation and no concerning findings were found at this time. Please follow-up with Dr. Jurado in the morning as discussed. Return to ER immediately if any fever, chills, increase in pain, difficulty breathing, or other concerning symptoms. - Post Discharge Activity
[2018-09-10 01:48] LABS: BASO % 0.3 % (0-2.0); EOS % 2.9 % (0-4.5); HEMATOCRIT 34.4 % (32.4-45.2); HEMOGLOBIN 11.7 GM/dL (10.7-15.3); LYMPH % 23.6 % (8-40); MCH 30.1 pg (25.7-33.7); MEAN CELL VOLUME 88.6 fl (80-96); MEAN PLT VOLUME 8.1 fl (7.5-11.1); NEUT % 65.2 % (42.8-82.8); PLATELET COUNT 234 K/MM3 (134-434); RBC 3.88 M/mm3 (3.60-5.2); RDW 13.3 % (11.6-15.6); WHITE BLOOD COUNT 11.5 K/mm3 (4.0-10.0)
[2018-09-10 02:12] LABS: ALBUMIN 3.4 g/dl (3.4-5.0); ALK PHOS 69 U/L (45-117); ANION GAP 8 MMOL/L (8-16); BILIRUBIN,TOTAL 0.5 mg/dL (0.2-1); BLOOD UREA NITROGEN 16 mg/dL (7-18); CALCIUM 8.6 mg/dL (8.5-10.1); CHLORIDE 105 mmol/L (98-107); CO2 26 mmol/L (21-32); CREATININE 1.1 mg/dL (0.55-1.3); GLUCOSE,RANDOM 104 mg/dL (74-106); POTASSIUM 3.8 mmol/L (3.5-5.1); SGOT/AST 18 U/L (15-37); SGPT/ALT 19 U/L (13-61); SODIUM 139 mmol/L (136-145); TOT PROT 7.9 g/dl (6.4-8.2)
--- NOTE | 2018-09-10 02:22 | PDOC ---
Attending Attestation - Resident Resident Name: Mukund Dunlap - ED Attending Attestation I have performed the following: I have examined & evaluated the patient, The case was reviewed & discussed with the resident, I agree w/resident's findings & plan, Exceptions are as noted - HPI HPI: 09/10/18 02:22 Patient is a 53 year old female with a significant past medical history of HTN, anemia, C4-C5 anterior cervical disc fusion (07/09) who presents to the ED with complaints of sore throat and difficulty swallowing since the surgery. Patient reports experiencing gradually increased throat pain as well as intermittent chills, and coughing with 1 episode of blood tinged sputum this evening, prompting her to come into the ED for further evaluation. Reports difficulty swallowing occurs even with swallowing her own saliva. Pt has been having trouble following up as an outpt as this is a workers comp case. Patient states her next appointment with Dr. Key is Friday09/14/2018. Denies chest pain, Sob. Denies nausea, vomiting. Denies fevers, chills. Denies contact with sick individuals, out of state travelling. Denies trauma to affected area. Denies dysuria, hematuria. Denies diarrhea, constipation. Denies any other symptoms. Allergies: None Social History: No smoking. No alcohol. No illicit drugs. Surgical History: C4-C5 anterior cervical disc fusion (07/09), umbilical hernia repair PMD: Dr. Alexander Carrillo Surgeon: Dr. Jurado - Physicial Exam PE: 09/10/18 02:27 GENERAL: Awake, alert, and fully oriented, in no acute distress. Non toxic. HEAD: No signs of trauma EYES: PERRLA, EOMI, sclera anicteric, conjunctiva clear ENT: Nares patent, oropharynx clear without exudates or erythema. Uvula midline. Moist mucosa NECK: Normal ROM, supple, no lymphadenopathy, JVD, or masses. anterior wound healing c/d/i with no erythema LUNGS: Breath sounds equal, clear to auscultation bilaterally. No wheezes, and no crackles HEART: Regular rate and rhythm, normal S1 and S2, no murmurs, rubs or gallops ABDOMEN: Soft, nontender, normoactive bowel sounds. No guarding, no rebound. No masses EXTREMITIES: Normal range of motion, no edema. No clubbing or cyanosis. No cords, erythema, or tenderness NEUROLOGICAL: Normal speech, cranial nerves intact, 5/5 strength in all 4 extremities, normal sensation to light touch in all 4 extremities, normal cerebellar exam, normal gait, normal tone SKIN: Warm, Dry, normal turgor, no rashes or lesions noted. - Medical Decision Making 09/10/18 02:28 53yo F hx C4-C5 anterior cervical disc fusion (07/09/18) presents to the ED with worsening throat pain and trouble swallowing since the surgery. Vitals initially with tachycardia, normalized on my exam without intervention. Able to tolerate secretions, pt is non toxic, no voice changes. Given anterior approach of cervical fusion and sxs since surgery, will check labs, CT neck, and discuss with Dr. Key Case signed out to overnight attending for f/u on diagnostics, mgmt, dispo
[2018-09-10 04:12] VITALS: BP 126/78; PULSE 89; TEMP 98.9
== END 2018-09-10 04:12 | disposition home or self-care (01) ==
LOC: JER 23:17
DX: M54.2 Cervicalgia (principal); J02.9 Acute pharyngitis, unspecified
CPT/HCPCS: 36415; 70360-TC-FY; 70491-TC; 71046-TC-FY; 80053; 85025; 87070; 87880; 99282-25

== ENCOUNTER 2018-11-18 14:49 | Emergency (ER) | payer OTHER, BC ==
--- NOTE | 2018-11-18 14:52 | PDOC ---
Rapid Medical Evaluation Time Seen by Provider: 11/18/18 14:51 Medical Evaluation: Allergies Allergy/AdvReac Type Severity Reaction Status Date / Time No Known Allergies Allergy Verified 09/09/18 23:23 11/18/18 14:51 I have performed a brief in-person evaluation of this patient. The patient presents with a chief complaint of: R UE numbness x 2 months Pertinent physical exam findings:No gross deficits I have ordered the following:Nothing The patient will proceed to the ED for further evaluation. Discharge Disposition - Diagnosis Neck pain - Referrals - Patient Instructions - Post Discharge Activity
[2018-11-18 14:54] VITALS: BP 138/97; PULSE 110; TEMP 98.2; BMI 33.7
[2018-11-18] MEDS ORDERED: KETOROLAC TROMETHAMINE 60 MG/2 ML VIAL IM ONE (17:03)
[2018-11-18] MEDS ORDERED: traMADol HCL 50 MG TABLET PO ONE (17:03)
[2018-11-18] MEDS ORDERED: KETOROLAC TROMETHAMINE 60 MG/2 ML VIAL ONE (17:11)
[2018-11-18] MEDS ORDERED: traMADol HCL 50 MG TABLET ONE (17:11)
--- NOTE | 2018-11-18 17:14 | PDOC ---
History of Present Illness - General Chief Complaint: Pain Stated Complaint: RT ARM NUMB Time Seen by Provider: 11/18/18 14:51 History Source: Patient - History of Present Illness Severity: moderate Past History - Past Medical History Allergies/Adverse Reactions: Allergies Allergy/AdvReac Type Severity Reaction Status Date / Time No Known Allergies Allergy Verified 11/18/18 14:54 Home Medications: Ambulatory Orders Olmesartan Medoxomil [Benicar -] 40 mg PO DAILY 08/01/17 Amlodipine Besylate [Norvasc -] 5 mg PO DAILY 07/08/18 Aspirin 81 mg PO DAILY 07/08/18 Ferrous Sulfate [Feosol] 325 mg PO DAILY #30 ud 07/13/18 Tramadol HCl 50 mg PO Q6H #5 tablet MDD 200mg 11/18/18 Anemia: Yes Asthma: No Cancer: No Cardiac Disorders: No CVA: No COPD: No CHF: No Dementia: No Diabetes: No GI Disorders: No Disorders: No HTN: Yes Hypercholesterolemia: No Liver Disease: No Seizures: No Thyroid Disease: No - Surgical History Abdominal Surgery: Yes (UMBILICAL HERNIA REPAIR) - Immunization History Td Vaccination: Yes Immunization Up to Date: Yes - Suicide/Smoking/Psychosocial Hx Smoking Status: No Smoking History: Never smoked Have you smoked in the past 12 months: No Number of Cigarettes Smoked Daily: 0 Information on smoking cessation initiated: No Hx Alcohol Use: No Drug/Substance Use Hx: No Substance Use Type: None Hx Substance Use Treatment: No Review of Systems - Review of Systems Constitutional: No: Chills, Fever Musculoskeletal: Yes: Neck Pain Neurological: Yes: Numbness. No: Tingling, Weakness *Physical Exam - Vital Signs Last Vital Signs Temp Pulse Resp BP Pulse Ox 98.2 F 110 H 18 138/97 100 11/18/18 14:52 11/18/18 14:52 11/18/18 14:52 11/18/18 14:52 11/18/18 14:52 - Physical Exam General Appearance: Yes: Appropriately Dressed, Mild Distress HEENT: positive: Normal Voice Neck: positive: Tender (along cspine, FROMI) Respiratory/Chest: negative: Respiratory Distress Extremity: positive: Normal Range of Motion. negative: Tender, Swelling Integumentary: positive: Dry, Warm Neurologic: positive: Fully Oriented, Alert, Normal Mood/Affect, Other (4/5 RUE strength compared to 5/5 LUE ). negative: Sensory Deficit Moderate Sedation - Procedure Monitoring Vital Signs: Procedure Monitoring Vital Signs Temperature 98.2 F 11/18/18 14:52 Pulse Rate 110 H 11/18/18 14:52 Respiratory Rate 18 11/18/18 14:52 Blood Pressure 138/97 11/18/18 14:52 O2 Sat by Pulse Oximetry (%) 100 11/18/18 14:52 Medical Decision Making - Medical Decision Making 11/18/18 17:06 53 yo F, h/o HTN, s/p neck surgery for radiculopathy in 07/2018, here w/ neck/R shoulder pain w/ intermittent numbness of RUE that started ~1 month ago. States sxs similar to sxs she had prior to her surgery. No acute UE weakness. States she saw her PMD and had unremarkable neck xray 2 weeks ago and given percocet which helps but has since ran out of meds See exam Cervical radiculopathy S/p surgery for same 07/23 No acute UE weakness Unremarkable cspine XR 2 weeks ago per pt Exam remarkable for ttp along cspine/R shoulder w/ 4/5 strength to RUE compared to L -pain control here -spinal f/u for MRI *DC/Admit/Observation/Transfer Diagnosis at time of Disposition: Neck pain Radiculopathy Qualifiers: Spinal region: cervical Qualified Code(s): M54.12 - Radiculopathy, cervical region - Discharge Dispostion Disposition: HOME Condition at time of disposition: Good - Prescriptions Prescriptions: Tramadol HCl 50 mg PO Q6H #5 tablet MDD 200mg - Referrals Referrals: Alexander Carrillo MD [Primary Care Provider] - - Patient Instructions Printed Discharge Instructions: DI for Cervical Radiculopathy Additional Instructions: Take medication as directed for pain and follow-up with your spinal specialist for possible MRI - Post Discharge Activity
== END 2018-11-18 17:15 | disposition home or self-care (01) ==
LOC: JERFT 14:49
PROC: 3E0233Z Introduction of Anti-inflammatory into Muscle, Percutaneous Approach (ICD-10-PCS; principal; 2018-11-18)
DX: M54.12 Radiculopathy, cervical region (principal); M54.2 Cervicalgia; I10 Essential (primary) hypertension
CPT/HCPCS: 99281-25

== ENCOUNTER 2019-02-09 06:07 | Inpatient (IN) | payer OTHER ==
[2019-02-08 13:28] VITALS: BMI 35.2
[2019-02-09] MEDS ORDERED: CEFAZOLIN 2 GM/D5W 2 GM/50 ML ML IVPB ONE (07:03)
[2019-02-09] MEDS ORDERED: BUPIVACAINE HCL/PF 0.5% (5MG/ML) 10 ML VIAL ONE (07:46)
[2019-02-09] MEDS ORDERED: LIDOCAINE 1%-EPI 1:100,000 30 ML MDV IJ ONE (07:46)
[2019-02-09] MEDS ORDERED: GENTAMICIN SO4 80 MG/2 ML VIAL ONE (07:46)
--- NOTE | 2019-02-09 07:56 | HP ---
History & Physical Update - History History: No Change - Physical Physical: No Change - Assessment Assessment: No Change - Plan Plan: No Change (Initial H&P completed 02/03/19 by DAIANA Arreaga with [facility] (will be scanned into her [facility]). No new complaints or medications.)
[2019-02-09] MEDS ORDERED: fentaNYL CITRATE 250 MCG/5 ML VIAL ONE (08:01)
[2019-02-09] MEDS ORDERED: ROCURONIUM BROMIDE 50 MG/5 ML VIAL ONE (08:02)
[2019-02-09] MEDS ORDERED: MIDAZOLAM HCL 2 MG/2 ML SINGLE DOSE VIAL ONE (08:02)
[2019-02-09] MEDS ORDERED: PROPOFOL 20 ML ONE ×3 (08:02→08:43)
[2019-02-09] MEDS ORDERED: LIDOCAINE HCL/PF 2% SDV 5ML VIAL ONE (08:03)
[2019-02-09] MEDS ORDERED: ONDANSETRON 4 MG/2 ML VIAL IVPUSH PRN ×3 (08:08→15:53)
[2019-02-09] MEDS ORDERED: DEXAMETHASONE SOD PHOSPHATE 4 MG/1 ML VIAL IVPUSH PRN ×2 (08:08→15:53)
[2019-02-09] MEDS ORDERED: PROMETHAZINE HCL 25 MG/1 ML VIAL IVPB PRN ×2 (08:08→15:53)
[2019-02-09] MEDS ORDERED: BACITRACIN 15 GM TUBE TOPICAL OINTMENT ONE (08:09)
[2019-02-09] MEDS ORDERED: BUPIVACAINE LIPOSOME/PF (EXPAREL) 266 MG/20 ML VIAL ONE (08:09)
[2019-02-09] MEDS ORDERED: LACTATED RINGERS SOLUTION 1,000 ML IV SCH ×2 (08:15→16:00)
[2019-02-09] MEDS ORDERED: ceFAZolin SODIUM 1 GM VIAL ONE ×2 (08:52→18:36)
[2019-02-09] MEDS ORDERED: SODIUM CHLORIDE 0.9% P/F 10 ML VIAL IJ ONE ×3 (08:52→09:06)
[2019-02-09] MEDS ORDERED: VANCOMYCIN 1,000 MG VIAL (RESTRICTED TO ID ONLY) IVPB ONE (08:54)
[2019-02-09] MEDS ORDERED: VANCOMYCIN 1,000 MG VIAL (RESTRICTED TO ID ONLY) ONE (08:56)
[2019-02-09] MEDS ORDERED: ceFAZolin 2 GRAM PREMIX BAG IVPB ONE (08:58)
[2019-02-09] MEDS ORDERED: LIDOCAINE 1%/EPI 1:100000 (20 ML MULTI DOSE VIAL) IJ ONE (09:01)
[2019-02-09] MEDS ORDERED: PHENYLEPHRINE HCL 10 MG/1 ML SINGLE DOSE VIAL ONE (09:06)
[2019-02-09] MEDS ORDERED: DESFLURANE GAS 240 ML BOTTLE IH ONE (09:30)
[2019-02-09] MEDS ORDERED: GELATIN SPONGE,ABSORBABLE 1 GM PACKET TP ONE (09:40)
[2019-02-09] MEDS ORDERED: BACITRACIN 50,000 UNITS VIAL TP ONE (09:41)
[2019-02-09] MEDS ORDERED: GENTAMICIN SO4 80 MG/2 ML VIAL IVPB ONE (09:42)
[2019-02-09] MEDS ORDERED: HYDROGEN PEROXIDE 473 ML PO ONE (09:43)
[2019-02-09] MEDS ORDERED: BUPIVACAINE LIPOSOME/PF (EXPAREL) 266 MG/20 ML VIAL NR ONE ×2 (09:44→11:31)
[2019-02-09] MEDS ORDERED: BUPIVACAINE HCL/PF (5 MG/ML) 30 ML VIAL IJ ONE ×2 (09:45→11:31)
[2019-02-09] MEDS ORDERED: THROMBIN (BOVINE) 5,000 UNIT VIAL TP ONE (09:46)
[2019-02-09] MEDS ORDERED: GLYCOPYRROLATE 0.2 MG/1 ML VIAL ONE (11:00)
[2019-02-09] MEDS ORDERED: NEOSTIGMINE METHYLSULFATE 0.5 MG/1 ML - 10 ML MDV ONE (11:00)
[2019-02-09] MEDS ORDERED: HYDROmorphone *PCA* 10MG/50ML DISP.SYRIN PCA ONE (12:28)
--- NOTE | 2019-02-09 12:29 | OP ---
Operative Note - Note: Operative Date: 02/09/19 Pre-Operative Diagnosis: Cervical radiculopathy, myelopathic, degenerative spine Operation: Exploration of spinal fusion with C3-C7 laminectomies, foraminotomies , osteotomies, lateral mass fusion and amish of lordosis Post-Operative Diagnosis: Same as Pre-op Surgeon: Neno Jurado Business Practices Officer: Buddy Nogueira Anesthesiologist/MECHANICAL FIELD ENGINEER: Genaro Varela Anesthesia: General Estimated Blood Loss (mls): 600 Drains & Tubes with Location: BROOK (posterior neck) Drains, Volume Out (mls): 200 Fluid Volume Replaced (mls): 1,200 Operative Report Dictated: Yes
[2019-02-09] MEDS ORDERED: diphenhydrAMINE HCL 25 MG CAPSULE (FP) PO PRN (12:32)
[2019-02-09] MEDS ORDERED: morphine SULFATE 4 MG/ML VIAL IVPUSH PRN (12:32)
[2019-02-09] MEDS ORDERED: oxyCODONE HCL 5 MG TABLET PO PRN (12:32)
[2019-02-09] MEDS ORDERED: HEPARIN NA (PORCINE) 5,000 UNITS/ML 1ML VIAL SQ SCH (12:45)
[2019-02-09] MEDS: HYDROmorphone *PCA* 10MG/50ML DISP.SYRIN PCA SCH ×2 (12:50→17:18)
[2019-02-09] MEDS: LACTATED RINGERS SOLUTION 1,000 ML/1,000 ML INFUS.BAG IV SCH ×2 (15:45→22:26)
[2019-02-09] MEDS ORDERED: HYDROmorphone *PCA* 10MG/50ML DISP.SYRIN PCA SCH (16:00)
[2019-02-09] MEDS ORDERED: LORazepam 2 MG/ML SDV VIAL IVPUSH PRN (17:09)
[2019-02-09] MEDS: DOCUSATE SODIUM 100 MG CAPSULE (FP) PO SCH ×2 (17:18→21:23)
[2019-02-09] MEDS ORDERED: DEXTROSE 5%-WATER - 50 ML IVPB ONE (18:36)
[2019-02-09] MEDS: CEFAZOLIN 1 GM in DEXTROSE 5%-WATER - 50 ML IVPB SCH (18:38)
[2019-02-10] MEDS: CEFAZOLIN 1 GM in DEXTROSE 5%-WATER - 50 ML IVPB SCH ×3 (01:37→17:13)
[2019-02-10] MEDS: DOCUSATE SODIUM 100 MG CAPSULE (FP) PO SCH ×3 (05:50→22:08)
[2019-02-10] MEDS: LACTATED RINGERS SOLUTION 1,000 ML/1,000 ML INFUS.BAG IV SCH ×2 (05:52→14:00)
[2019-02-10] MEDS: HEPARIN NA (PORCINE) 5,000 UNITS/ML 1ML VIAL SQ SCH ×3 (06:05→22:08)
--- NOTE | 2019-02-10 08:20 | PN ---
Progress Note (short form) - Note Progress Note: Anesthesia Post op/pain Pt seen and examined S:Alert and awake comfortable c/o weakness on the left shoulder O: Vital Signs Temperature 98.1 F 02/10/19 06:42 Pulse Rate 101 H 02/10/19 06:42 Respiratory Rate 20 02/10/19 06:42 Blood Pressure 129/78 02/10/19 06:42 O2 Sat by Pulse Oximetry (%) 96 02/09/19 17:05 A/P:s/p c3-c7 posterior decompression with fusion Doing well post op pain well controlled Continue PAPER PATTERN INSPECTOR Alexy Heredia MD
[2019-02-10 08:28] LABS: HEMATOCRIT 31.5 % (32.4-45.2); HEMOGLOBIN 10.1 GM/dL (10.7-15.3); MCH 28.9 pg (25.7-33.7); MCHC 32.2 g/dl (32.0-36.0); MEAN CELL VOLUME 89.8 fl (80-96); PLATELET COUNT 227 K/MM3 (134-434); RDW 14.3 % (11.6-15.6)
[2019-02-10] MEDS ORDERED: DEXTROSE 5%-WATER - 50 ML IVPB ONE ×3 (09:00→15:38)
[2019-02-10] MEDS ORDERED: ceFAZolin SODIUM 1 GM VIAL ONE ×3 (09:00→15:38)
[2019-02-10 09:06] LABS: POTASSIUM 4.8 mmol/L (3.5-5.1)
[2019-02-10] MEDS: FERROUS SO4 325 MG TABLET (FP) PO SCH (09:52)
[2019-02-10] MEDS: HYDROmorphone *PCA* 10MG/50ML DISP.SYRIN PCA SCH (09:52)
[2019-02-10] MEDS: FOLIC ACID 1 MG TABLET (FP) PO SCH (09:53)
[2019-02-10] MEDS: amLODIPine BESYLATE 5 MG TABLET (FP) PO SCH (09:53)
[2019-02-10] MEDS: ASPIRIN 81 MG CHEWABLE TABLETS PO SCH (09:53)
[2019-02-10] MEDS: VALSARTAN 160 MG TABLET (UD) PO SCH (09:53)
--- NOTE | 2019-02-10 10:25 | PN ---
Progress Note (short form) - Note Progress Note: 53yo F s/p C3-C7 posterior fusion, POD 1. Pt seen and examined at bedside. Pt states neck pain is controlled, but is very concerned that she has Left shoulder weakness. Pt denies previous issues with her Left arm. Pt denies numbness or weakness in the left hand. No fever, chills, n/v, chest pain. Last Vital Signs Temp Pulse Resp BP Pulse Ox 98.1 F 101 H 20 129/78 96 02/10/19 06:42 02/10/19 06:42 02/10/19 06:42 02/10/19 06:42 02/09/19 17:05 CBC, BMP 02/10/19 07:18 02/10/19 07:18 PE: Gen: A&O x 3 Resp: breathing comfortably Neck: incision clean with no erythema or discharge, drain in place with serosanguinous drainage. Output: 25ml Ext: Lt shoulder weakness, hands no weakness or numbness Problem List - Problems (1) Cervical post-laminectomy syndrome Assessment/Plan: Plan -explained to pt that most likely has Lt brachial plexus irritation, and that weakness will improve but will take some time. -DC QUALITY LEAD, PO pain meds -emphasize OOB/ambulate -PT -will most likely pull drain later today. Case discussed with Dr. Jurado who agrees with plan Code(s): M96.1 - POSTLAMINECTOMY SYNDROME, NOT ELSEWHERE CLASSIFIED
[2019-02-10] MEDS: oxyCODONE HCL 5 MG TABLET PO PRN ×2 (13:36→15:27)
--- NOTE | 2019-02-10 21:35 | CONSULT ---
Consult Consult Specialty:: Internal medicine - History of Present Illness History of Present Illness: Pt is a 53 y/o female w/ PMH significant for HTN, cervical radiculopathy, chronic back pain, OA and anemia. Pt underwent spinal fusion with C3-C7 laminectomies, foraminotomies, and osteotomies. Pt tolerated surgery and does complain of neck pain. - Past Medical History Cardio/Vascular: Yes: HTN ...LMP: 06/11/17 ...LMP Comment: january 2019 Heme/Onc: Yes: Anemia Musculoskeletal: Yes: Other (Cervical radiculopathy Chronic abck pain) - Alcohol/Substance Use Hx Alcohol Use: No - Smoking History Smoking history: Never smoked Have you smoked in the past 12 months: No Aproximately how many cigarettes per day: 0 Home Medications - Allergies Allergies/Adverse Reactions: Allergies Allergy/AdvReac Type Severity Reaction Status Date / Time No Known Allergies Allergy Verified 02/09/19 06:32 - Home Medications Home Medications: Ambulatory Orders Olmesartan Medoxomil [Benicar -] 40 mg PO DAILY 08/01/17 Amlodipine Besylate [Norvasc -] 5 mg PO DAILY 07/08/18 Aspirin 81 mg PO DAILY 07/08/18 Family Disease History - Family Disease History Family History: Unremarkable Review of Systems - Review of Systems Constitutional: reports: No Symptoms Eyes: reports: No Symptoms Cardiovascular: reports: No Symptoms Respiratory: reports: No Symptoms Gastrointestinal: reports: No Symptoms Physical Exam Vital Signs: Vital Signs Temperature 98.8 F 02/10/19 17:28 Pulse Rate 118 H 02/10/19 17:28 Respiratory Rate 20 02/10/19 17:28 Blood Pressure 137/79 02/10/19 17:28 O2 Sat by Pulse Oximetry (%) 99 02/10/19 09:00 Constitutional: Yes: Well Nourished Eyes: Yes: WNL Neck: Yes: Other (Cervical collar w/ drainage tube in neck) Cardiovascular: Yes: WNL, Regular Rate and Rhythm Respiratory: Yes: WNL, Regular, CTA Bilaterally Gastrointestinal: Yes: WNL, Normal Bowel Sounds, Soft Edema: No Neurological: Yes: WNL, Alert, Oriented ...Motor Strength: WNL Labs: CBC, BMP 02/10/19 07:18 02/10/19 07:18 Problem List - Problems (1) Cervical post-laminectomy syndrome Assessment/Plan: S/P spinal fusion w/ lamenctomy of C3-C7 COnt IV decadron/cefazolin Cont pain management Code(s): M96.1 - POSTLAMINECTOMY SYNDROME, NOT ELSEWHERE CLASSIFIED (2) Anemia Assessment/Plan: Monitor H/H Cont feso4 Code(s): D64.9 - ANEMIA, UNSPECIFIED (3) HTN (hypertension) Assessment/Plan: BP stable Cont asa/norvasc/diovan Code(s): I10 - ESSENTIAL (PRIMARY) HYPERTENSION (4) GERD (gastroesophageal reflux disease) Code(s): K21.9 - GASTRO-ESOPHAGEAL REFLUX DISEASE WITHOUT ESOPHAGITIS
[2019-02-11] MEDS ORDERED: ceFAZolin SODIUM 1 GM VIAL ONE (02:40)
[2019-02-11] MEDS ORDERED: DEXTROSE 5%-WATER - 50 ML IVPB ONE (02:40)
[2019-02-11] MEDS: CEFAZOLIN 1 GM in DEXTROSE 5%-WATER - 50 ML IVPB SCH (02:50)
[2019-02-11] MEDS: HEPARIN NA (PORCINE) 5,000 UNITS/ML 1ML VIAL SQ SCH ×3 (06:37→21:07)
[2019-02-11] MEDS: DOCUSATE SODIUM 100 MG CAPSULE (FP) PO SCH ×3 (06:37→21:07)
--- NOTE | 2019-02-11 08:06 | PN ---
Progress Note (short form) - Note Progress Note: surgery POD #2 C3-C7 posterior fusion, Pt seen and examined at bedside. Pt states neck pain is controlled although she is having pain now extending over the trap muscles. He is still having Left UE pain, numbness and weakness, which is unchanged since POD #0. Denies fever, chills, n/v, chest pain. Vital Signs Temp 99.3 F 02/11/19 15:04 Pulse 115 H 02/11/19 15:04 Resp 20 02/11/19 15:04 BP 145/83 02/11/19 15:04 Pulse Ox 92 L 02/11/19 09:00 Intake & Output 0502/11/02/11/19 23:59 11:59 23:59 Intake Total 2610 150 240 Output Total 720 30 Balance 1890 120 240 Intake: IV 1000 LACTATED RINGERS SOLUTION 1000 1,000 ml In 1,000 ml @ 125 mls/hr IV ASDIR TADEO Rx#:[id number] IVPB 100 Oral 1150 150 Oral Supplement 360 240 Output: Drainage 70 30 Left Neck 70 30 Urine 650 Evans 350 Void 300 Other: Voiding Method Toilet Toilet Toilet # Unmeasured Voids Void 2 Bowel Movement No CBC, BMP 05/ 07:18 02/10/ 07:18 PE: Gen: A&Ox3, NAD Resp: unlabored resp on RA Neck: incision c/d/i with surrounding tissue intact and no tracking erythema edema or evidence of discharge or collection, drain removed with tip fully intact. drain site clean and dry with no active d/c/ Ext: patient unable to fully cooperate with exam 2/2 pain. Lt shoulder weakness , b/l elbow. wrist and hand 5/5. Problem List - Problems (1) Cervical spondylosis Assessment/Plan: POD#2 C3-C7 posterior fusion pain appropriate to status, likely brachial plexus irritation which should resolve over time. -Continue PT- OOB with c-collar - Added muscle relaxer for spasm - encourage ID -D/c home today if pain controlled. Evaluation and plan discussed with Dr Jurado Code(s): M47.812 - SPONDYLOSIS W/O MYELOPATHY OR RADICULOPATHY, CERVICAL REGION
[2019-02-11] MEDS ORDERED: PT OWN MED DRAWER 7, Y5N ONE (10:10)
[2019-02-11] MEDS: amLODIPine BESYLATE 5 MG TABLET (FP) PO SCH (10:13)
[2019-02-11] MEDS: FERROUS SO4 325 MG TABLET (FP) PO SCH (10:13)
[2019-02-11] MEDS: VALSARTAN 160 MG TABLET (UD) PO SCH (10:13)
[2019-02-11] MEDS: FOLIC ACID 1 MG TABLET (FP) PO SCH (10:13)
[2019-02-11] MEDS: ASPIRIN 81 MG CHEWABLE TABLETS PO SCH (10:13)
[2019-02-11] MEDS: oxyCODONE HCL 5 MG TABLET PO PRN (10:19)
[2019-02-11] MEDS: HYDROmorphone *PCA* 10MG/50ML DISP.SYRIN PCA SCH (10:47)
[2019-02-11] MEDS ORDERED: diazePAM 2 MG TABLET PO ONE (15:19)
[2019-02-11 16:33] LABS: BASO % 0.3 % (0-2.0); EOS % 1.1 % (0-4.5); HEMATOCRIT 32.8 % (32.4-45.2); HEMOGLOBIN 10.5 GM/dL (10.7-15.3); LYMPH % 25.3 % (8-40); MCHC 32.1 g/dl (32.0-36.0); MEAN CELL VOLUME 90.5 fl (80-96); MEAN PLT VOLUME 8.4 fl (7.5-11.1); MONO % 8.6 % (3.8-10.2); NEUT % 64.7 % (42.8-82.8); PLATELET COUNT 215 K/MM3 (134-434); RBC 3.62 M/mm3 (3.60-5.2); RDW 14.1 % (11.6-15.6); WHITE BLOOD COUNT 13.2 K/mm3 (4.0-10.0)
[2019-02-11 17:05] LABS: ALBUMIN 3.3 g/dl (3.4-5.0); ALK PHOS 54 U/L (45-117); ANION GAP 6 MMOL/L (8-16); BILIRUBIN,TOTAL 0.4 mg/dL (0.2-1); BLOOD UREA NITROGEN 14 mg/dL (7-18); CALCIUM 8.7 mg/dL (8.5-10.1); CHLORIDE 98 mmol/L (98-107); CO2 32 mmol/L (21-32); CREATININE 1.1 mg/dL (0.55-1.3); GLUCOSE,RANDOM 143 mg/dL (74-106); POTASSIUM 4.1 mmol/L (3.5-5.1); SGOT/AST 23 U/L (15-37); SGPT/ALT 17 U/L (13-61); SODIUM 135 mmol/L (136-145); TOT PROT 7.3 g/dl (6.4-8.2)
--- NOTE | 2019-02-11 17:15 | EKG ---
Test Reason : Blood Pressure : / mmHG Vent. Rate : 129 BPM Atrial Rate : 129 BPM P-R Int : 140 ms QRS Dur : 086 ms QT Int : 292 ms P-R-T Axes : 029 -17 022 degrees QTc Int : 427 ms SINUS TACHYCARDIA MODERATE VOLTAGE CRITERIA FOR LVH, MAY BE NORMAL VARIANT CANNOT RULE OUT SEPTAL INFARCT , AGE UNDETERMINED ABNORMAL ECG WHEN COMPARED WITH ECG OF 21-JUL-2018 10:21, MINIMAL CRITERIA FOR SEPTAL INFARCT ARE NOW PRESENT Confirmed by LARISA CURIEL MD ([id number]) on 02/11/2019 5:15:09 PM Referred By: [facility] Confirmed By:LARISA CURIEL MD
[2019-02-11] MEDS: diazePAM 5 MG TABLET PO SCH (20:31)
--- NOTE | 2019-02-11 21:56 | CON.CARD ---
Consult Consult Specialty:: cardiology Reason for Consultation:: tachycardia - History of Present Illness Chief Complaint: Pt A&Ox3; c/o constant pain in left side of neck and left shoulder; "when I stand, it feels like my left arm is going to fall off". History of Present Illness: 53yo black woman with PMHx HTN, obesity, hyperglycemia, now s/p C3-C7 posterior fusion, POD 1. Neck pain was initially controlled, but she was very concerned that she had continued left shoulder weakness, and later felt pain at the surgical site. Pt denies previous issues with her Left arm. Pt denies numbness or weakness in the left hand. No fever, chills, n/v, chest pain. Pt was noted to be tachycardic post-operatively while in pain. - History Source History Provided By: Patient, Medical Record - Past Medical History HAND PATTERN MARKER: Yes: Peripheral Neuropathy (reportedly from "elevated sugar") Cardio/Vascular: Yes: HTN Pulmonary: No: Asthma Reproductive: Yes: Postmenopausal ...LMP: 06/11/17 ...LMP Comment: january 2019 ...: No Heme/Onc: Yes: Anemia Psych: Yes: Anxiety Musculoskeletal: Yes: Other (Cervical radiculopathy Chronic abck pain) - Past Surgical History Past Surgical History: Yes: Laminectomy Additional Surgical History: cervical spine - Alcohol/Substance Use Hx Alcohol Use: No - Smoking History Smoking history: Never smoked Have you smoked in the past 12 months: No Aproximately how many cigarettes per day: 0 Home Medications - Allergies Allergies/Adverse Reactions: Allergies Allergy/AdvReac Type Severity Reaction Status Date / Time No Known Allergies Allergy Verified 02/09/19 06:32 - Home Medications Home Medications: Ambulatory Orders Olmesartan Medoxomil [Benicar -] 40 mg PO DAILY 08/01/17 Amlodipine Besylate [Norvasc -] 5 mg PO DAILY 07/08/18 Aspirin 81 mg PO DAILY 07/08/18 Diazepam [Valium] 2 mg PO TID PRN #24 tablet MDD 3 02/12/19 Docusate Sodium [Colace] 100 mg PO TID #40 capsule 02/12/19 oxyCODONE HCL [Roxicodone -] 5 mg PO Q4H PRN #30 tablet MDD 6 02/12/19 Family Disease History - Family Disease History Family History: Denies Review of Systems - Review of Systems Constitutional: reports: No Symptoms Eyes: reports: No Symptoms HENT: reports: No Symptoms Neck: reports: Decreased ROM, Pain on Movement, Stiffness, Tenderness Cardiovascular: reports: No Symptoms Respiratory: reports: SOB on Exertion Gastrointestinal: reports: No Symptoms Genitourinary: reports: No Symptoms Breasts: reports: No Symptoms Reported Musculoskeletal: reports: Back Pain, Decreased ROM, Extremity Pain, Joint Pain, Muscle Pain Integumentary: reports: No Symptoms Neurological: reports: Numbness, Parasthesia, Weakness Endocrine: reports: No Symptoms Hematology/Lymphatic: reports: No Symptoms Psychiatric: reports: Anxiety - Risk Factors Known Risk Factors: Yes: Age, Hypertension, Physical Inactivity Vital Signs: Vital Signs Temperature 99.6 F 02/11/19 17:30 Pulse Rate 127 H 02/11/19 17:30 Respiratory Rate 20 02/11/19 17:30 Blood Pressure 133/87 02/11/19 17:30 O2 Sat by Pulse Oximetry (%) 92 L 02/11/19 09:00 Constitutional: Yes: Anxious, Obese Eyes: Yes: WNL HENT: Yes: WNL Neck: Yes: Decreased ROM, Other (neck brace post-op) Respiratory: Yes: WNL Gastrointestinal: Yes: Soft, Abdomen, Obese Renal/: No: Anuria Cardiovascular: Yes: Tachycardia JVD: No Carotid Bruit: No PMI: Non-Displaced Heart Sounds: Yes: S1, S2, S4 Murmur: Yes: Systolic Murmur, Grade 1 Musculoskeletal: Yes: Joint Stiffness, Muscle Pain Extremities: Yes: Other (weakness left arm) Edema: No Peripheral Pulses WNL: Yes Integumentary: Yes: Incision Neurological: Yes: Alert, Oriented, Weakness Psychiatric: Yes: Alert, Oriented - Other Data Labs, Other Data: CBC, BMP 02/11/19 15:55 02/11/19 15:55 Troponin, BNP 02/11/19 15:55 Troponin I < 0.02 Troponin, BNP 02/11/19 15:55 Troponin I < 0.02 Abnormal Lab Results 02/12/19 02/12/19 02/12/19 05:30 05:30 05:30 WBC 14.0 H RBC 3.53 L Hgb 10.4 L Hct 31.6 L Absolute Neuts (auto) 9.6 H Sodium 133 L Chloride 96 L Anion Gap 7 L Random Glucose 112 H Albumin 3.0 L HDL Cholesterol 66 H TSH 0.23 L Abnormal Lab Results 02/13/19 02/13/19 07:15 07:15 WBC 14.1 H Absolute Neuts (auto) 9.3 H Anion Gap 6 L Albumin 3.0 L Imaging - Results Chest X-ray: Image Reviewed Cat Scan: Image Reviewed (no PE) EKG: Image Reviewed (sinus tachycardia) Problem List - Problems (1) Shoulder pain Assessment/Plan: c/o weakness in left shoulder (new, occurring since cervical spine surgey 2 days ago Code(s): M25.519 - PAIN IN UNSPECIFIED SHOULDER (2) Cervical post-laminectomy syndrome Assessment/Plan: f/u with neurosurgeon Code(s): M96.1 - POSTLAMINECTOMY SYNDROME, NOT ELSEWHERE CLASSIFIED (3) Hypertension Assessment/Plan: On valsartan and amlodipine. F/u BP and HR. Pain management. Code(s): I10 - ESSENTIAL (PRIMARY) HYPERTENSION Qualifiers: Hypertension type: essential hypertension Qualified Code(s): I10 - Essential (primary) hypertension (4) Sinus tachycardia Assessment/Plan: Multiple eitologies, including pain, anxiety, dehydration, CHF, fever, anemia. R/o DVT/PE. R/u thyroid disease: TSH pending. Encourage fluids. Code(s): R00.0 - TACHYCARDIA, UNSPECIFIED (5) Fever Assessment/Plan: Leukocytosis; pulmonary infiltrates; tachycardia. F/u septic w/u. Code(s): R50.9 - FEVER, UNSPECIFIED (6) Iron deficiency anemia Code(s): D50.9 - IRON DEFICIENCY ANEMIA, UNSPECIFIED
--- NOTE | 2019-02-11 23:07 | PN ---
Progress Note, Physician History of Present Illness: Pt w/ LT arm pain Pt also tachycardiac - Current Medication List Current Medications: Active Medications Acetaminophen (Tylenol -) 650 mg PO Q4H PRN PRN Reason: HEADACHE Amlodipine Besylate (Norvasc -) 5 mg PO DAILY [facility] Last Admin: 02/11/19 10:13 Dose: 5 mg Aspirin (Asa -) 81 mg PO DAILY [facility] Last Admin: 02/11/19 10:13 Dose: 81 mg Diazepam (Valium -) 5 mg PO 0700,1900 [facility] Last Admin: 02/11/19 20:31 Dose: 5 mg Diphenhydramine HCl (Benadryl -) 25 mg PO Q6H PRN PRN Reason: FOR ITCHING Docusate Sodium (Colace -) 100 mg PO TID [facility] Last Admin: 02/11/19 21:07 Dose: 100 mg Ferrous Sulfate (Feosol -) 325 mg PO DAILY@0800 [facility] Last Admin: 02/11/19 10:13 Dose: 325 mg Folic Acid (Folic Acid -) 1 mg PO DAILY [facility] Last Admin: 02/11/19 10:13 Dose: 1 mg Heparin Sodium (Porcine) (Heparin -) 5,000 unit SQ TID [facility] Last Admin: 02/11/19 21:07 Dose: 5,000 unit Ondansetron HCl (Zofran Injection) 4 mg IVPUSH Q6H PRN PRN Reason: NAUSEA Oxycodone HCl (Roxicodone -) 5 mg PO Q4H PRN PRN Reason: PAIN LEVEL 1-5 Last Admin: 02/11/19 10:19 Dose: 5 mg Oxycodone HCl (Roxicodone -) 10 mg PO Q4H PRN PRN Reason: PAIN LEVEL 6-10 Last Admin: 02/10/19 20:57 Dose: 10 mg Valsartan (Diovan -) 320 mg PO DAILY [facility] Last Admin: 02/11/19 10:13 Dose: 320 mg - Objective Vital Signs: Vital Signs Temperature 99.6 F 02/11/19 17:30 Pulse Rate 127 H 02/11/19 17:30 Respiratory Rate 20 02/11/19 17:30 Blood Pressure 133/87 02/11/19 17:30 O2 Sat by Pulse Oximetry (%) 92 L 02/11/19 09:00 HENT: Yes: Other ((+) cervical collar) Neck: Yes: WNL, Supple Cardiovascular: Yes: Tachycardia Respiratory: Yes: Diminished Gastrointestinal: Yes: WNL, Normal Bowel Sounds, Soft Labs: CBC, BMP 02/11/19 15:55 02/11/19 15:55 Problem List - Problems (1) Cervical post-laminectomy syndrome Assessment/Plan: S/P spinal fusion w/ lamenctomy of C3-C7 COnt IV decadron/cefazolin Cont pain management Code(s): M96.1 - POSTLAMINECTOMY SYNDROME, NOT ELSEWHERE CLASSIFIED (2) Arm pain Code(s): M79.603 - PAIN IN ARM, UNSPECIFIED (3) Leukocytosis Assessment/Plan: Repeat in am Check urine culture ID consult Code(s): D72.829 - ELEVATED WHITE BLOOD CELL COUNT, UNSPECIFIED (4) Tachycardia Assessment/Plan: Sinusis tachy Could be due to pain Cardio consult Cont to monitor Code(s): R00.0 - TACHYCARDIA, UNSPECIFIED (5) Anemia Assessment/Plan: Monitor H/H Cont feso4 Code(s): D64.9 - ANEMIA, UNSPECIFIED (6) HTN (hypertension) Assessment/Plan: BP stable Cont asa/norvasc/diovan Code(s): I10 - ESSENTIAL (PRIMARY) HYPERTENSION (7) GERD (gastroesophageal reflux disease) Code(s): K21.9 - GASTRO-ESOPHAGEAL REFLUX DISEASE WITHOUT ESOPHAGITIS
[2019-02-12] MEDS: DOCUSATE SODIUM 100 MG CAPSULE (FP) PO SCH ×3 (05:48→21:22)
[2019-02-12] MEDS: HEPARIN NA (PORCINE) 5,000 UNITS/ML 1ML VIAL SQ SCH ×3 (05:48→21:22)
[2019-02-12] MEDS: diazePAM 5 MG TABLET PO SCH ×2 (06:02→17:59)
[2019-02-12 06:47] LABS: BASO % 0.3 % (0-2.0); EOS % 0.6 % (0-4.5); HEMATOCRIT 31.6 % (32.4-45.2); HEMOGLOBIN 10.4 GM/dL (10.7-15.3); LYMPH % 21.4 % (8-40); MCH 29.4 pg (25.7-33.7); MCHC 32.8 g/dl (32.0-36.0); MEAN CELL VOLUME 89.6 fl (80-96); MEAN PLT VOLUME 8.2 fl (7.5-11.1); MONO % 8.8 % (3.8-10.2); NEUT % 68.9 % (42.8-82.8); PLATELET COUNT 231 K/MM3 (134-434); RBC 3.53 M/mm3 (3.60-5.2); RDW 13.7 % (11.6-15.6)
--- NOTE | 2019-02-12 07:24 | PN ---
Progress Note (short form) - Note Progress Note: POD #3 Alert. Supine in bed wearing her C-collar as instructed. C/o Left shoulder/trapezius pain s/p prcocedure although pain is controlled with medications as ordered. Has LUE numbness and weakness, which is unchanged since POD #0. Tachycardic to 120. Denies n/v/f/c, CP, SOB or M[place]OUGH. Last Vital Signs Temp Pulse Resp BP Pulse Ox 98 F 120 H 20 150/81 92 L 02/12/19 06:29 02/12/19 06:29 02/12/19 06:29 02/12/19 06:29 02/11/19 09:00 PE: Gen: A&Ox3, NAD Resp: unlabored resp on RA Neck: posterior incision c/d/i. Ext: RUE unremarkable. LUE --> pt unwilling to participate in exam secondary to pain. LE: soft, supple, nt bilat. no edema Problem List - Problems (1) Cervical spondylosis Assessment/Plan: POD #3 s/p C3-C7 posterior fusion pain appropriate to status, likely brachial plexus irritation which should resolve over time. Tachycardic (pain related?) PT OOB and ambulate Cont to wear your c-collar as directed Muscle relaxer PRN No further intervention planned on behalf of Neurosurgery Cont Medical Management and can be discharged home when you feel she is cleared medically. Above plan discussed with Dr. Alistair Gastelum (covering for Dr. Jurado) and agrees. Evaluation and plan discussed with Dr Jurado Code(s): M47.812 - SPONDYLOSIS W/O MYELOPATHY OR RADICULOPATHY, CERVICAL REGION
[2019-02-12 07:27] LABS: CHOLESTEROL 183 mg/dL (50-200); HDL CHOLESTEROL 66 mg/dL (40-60); TRIGLYCERIDES 135 mg/dL (0-150)
[2019-02-12 07:33] LABS: BILIRUBIN,TOTAL 0.6 mg/dL (0.2-1); CALCIUM 8.7 mg/dL (8.5-10.1); CREATININE 0.9 mg/dL (0.55-1.3); POTASSIUM 3.9 mmol/L (3.5-5.1); TOT PROT 7.1 g/dl (6.4-8.2)
[2019-02-12] MEDS: FERROUS SO4 325 MG TABLET (FP) PO SCH (08:55)
[2019-02-12] MEDS: ASPIRIN 81 MG CHEWABLE TABLETS PO SCH (09:00)
[2019-02-12] MEDS: FOLIC ACID 1 MG TABLET (FP) PO SCH (09:01)
[2019-02-12] MEDS: amLODIPine BESYLATE 5 MG TABLET (FP) PO SCH (09:01)
[2019-02-12] MEDS: VALSARTAN 160 MG TABLET (UD) PO SCH (09:01)
[2019-02-12] MEDS: oxyCODONE HCL 5 MG TABLET PO PRN (09:02)
--- NOTE | 2019-02-12 12:07 | CON.ID ---
Consult Consult Specialty:: infectious diseases Referred by:: Reason for Consultation:: fever - History of Present Illness Chief Complaint: neck pain History of Present Illness: 53 y/o female w/ PMH significant for HTN, cervical radiculopathy, chronic back pain, OA and anemia. Pt underwent spinal fusion with C3-C7 laminectomies, foraminotomies, and osteotomies. Pt tolerated surgery and does complain of neck pain. patient then spiked a fever this morning . currently patient is afebrile and is in dicomfort at the neck--patient mentions that it is because of her spasms ,pain not there - History Source History Provided By: Patient Limitations to Obtaining History: No Limitations - Past Medical History Cardio/Vascular: Yes: HTN ...LMP: 06/11/17 ...LMP Comment: january 2019 Musculoskeletal: Yes: Other (Cervical radiculopathy Chronic abck pain) - Alcohol/Substance Use Hx Alcohol Use: No - Smoking History Smoking history: Never smoked Have you smoked in the past 12 months: No Aproximately how many cigarettes per day: 0 Home Medications - Allergies Allergies/Adverse Reactions: Allergies Allergy/AdvReac Type Severity Reaction Status Date / Time No Known Allergies Allergy Verified 02/09/19 06:32 - Home Medications Home Medications: Ambulatory Orders Olmesartan Medoxomil [Benicar -] 40 mg PO DAILY 08/01/17 Amlodipine Besylate [Norvasc -] 5 mg PO DAILY 07/08/18 Aspirin 81 mg PO DAILY 07/08/18 Diazepam [Valium] 2 mg PO TID PRN #24 tablet MDD 3 02/12/19 Docusate Sodium [Colace] 100 mg PO TID #40 capsule 02/12/19 oxyCODONE HCL [Roxicodone -] 5 mg PO Q4H PRN #30 tablet MDD 6 02/12/19 Review of Systems - Review of Systems Constitutional: reports: Fever Eyes: reports: No Symptoms HENT: reports: Other (neck pain) Neck: reports: Other (neck pain) Cardiovascular: reports: No Symptoms Respiratory: reports: No Symptoms Gastrointestinal: reports: No Symptoms Genitourinary: reports: No Symptoms Musculoskeletal: reports: No Symptoms Integumentary: reports: No Symptoms Neurological: reports: No Symptoms Endocrine: reports: No Symptoms Hematology/Lymphatic: reports: No Symptoms Psychiatric: reports: No Symptoms Physical Exam Vital Signs: Vital Signs Temperature 99.2 F 02/12/19 10:00 Pulse Rate 125 H 02/12/19 10:00 Respiratory Rate 20 02/12/19 10:00 Blood Pressure 142/79 02/12/19 10:00 O2 Sat by Pulse Oximetry (%) 92 L 02/11/19 09:00 Constitutional: Yes: Well Nourished, Calm, Mild Distress, Obese Neck: Yes: Other (in neck collar) Cardiovascular: Yes: Regular Rate and Rhythm Respiratory: Yes: Regular, CTA Bilaterally Gastrointestinal: Yes: Normal Bowel Sounds, Soft Musculoskeletal: Yes: WNL Extremities: Yes: WNL Neurological: Yes: Alert, Oriented Psychiatric: Yes: Alert, Oriented Labs: CBC, BMP 02/12/19 05:30 02/12/19 05:30 Imaging - Results Chest X-ray: Report Reviewed, Image Reviewed Cat Scan: Report Reviewed, Image Reviewed Assessment/Plan Problem List - Problems (1) Cervical post-laminectomy syndrome Code(s): M96.1 - POSTLAMINECTOMY SYNDROME, NOT ELSEWHERE CLASSIFIED (2) Arm pain Code(s): M79.603 - PAIN IN ARM, UNSPECIFIED (3) Leukocytosis Code(s): D72.829 - ELEVATED WHITE BLOOD CELL COUNT, UNSPECIFIED (4) Tachycardia Code(s): R00.0 - TACHYCARDIA, UNSPECIFIED (5) Anemia Code(s): D64.9 - ANEMIA, UNSPECIFIED (6) HTN (hypertension) Code(s): I10 - ESSENTIAL (PRIMARY) HYPERTENSION (7) GERD (gastroesophageal reflux disease) Code(s): K21.9 - GASTRO-ESOPHAGEAL REFLUX DISEASE WITHOUT ESOPHAGITIS plan we will hold off on starting any abx check the wbc tomorrow if the wbc increases or the patient spikes fever we will start abx await for all reports patient got abx if fevers pls culture
[2019-02-12] MEDS: ACETAMINOPHEN 325 MG TABLET (FP) PO PRN ×2 (13:39→18:49)
--- NOTE | 2019-02-12 14:53 | EKG ---
Test Reason : Blood Pressure : / mmHG Vent. Rate : 124 BPM Atrial Rate : 124 BPM P-R Int : 144 ms QRS Dur : 086 ms QT Int : 302 ms P-R-T Axes : 041 -06 030 degrees QTc Int : 433 ms SINUS TACHYCARDIA WHEN COMPARED WITH ECG OF 11-FEB-2019 15:18, NO SIGNIFICANT CHANGE WAS FOUND Confirmed by TORRI FIGUEROA MD ([id number]) on 02/12/2019 2:53:03 PM Referred By: SABINA JAFFE Confirmed By:TORRI FIGUEROA MD
--- NOTE | 2019-02-12 20:19 | CONSULT ---
Consult Consult Specialty:: Pain Management Referred by:: Dr. Jurado Reason for Consultation:: Neck pain s/p fusion - History of Present Illness Chief Complaint: Neck pain amd muscle spasm History of Present Illness: 53 yr old female with Neck pain s/p cervical fusion with left upper extremity muscles spasm and wek.07/15. using cervical collar - History Source History Provided By: Patient Limitations to Obtaining History: No Limitations - Past Medical History Cardio/Vascular: Yes: HTN ...LMP: 06/11/17 ...LMP Comment: january 2019 Musculoskeletal: Yes: Other (Cervical radiculopathy Chronic back pain) - Past Surgical History Past Surgical History: Yes: Hernia Repair - Alcohol/Substance Use Hx Alcohol Use: No - Smoking History Smoking history: Never smoked Have you smoked in the past 12 months: No Aproximately how many cigarettes per day: 0 Home Medications - Allergies Allergies/Adverse Reactions: Allergies Allergy/AdvReac Type Severity Reaction Status Date / Time No Known Allergies Allergy Verified 02/09/19 06:32 - Home Medications Home Medications: Ambulatory Orders Olmesartan Medoxomil [Benicar -] 40 mg PO DAILY 08/01/17 Amlodipine Besylate [Norvasc -] 5 mg PO DAILY 07/08/18 Aspirin 81 mg PO DAILY 07/08/18 Diazepam [Valium] 2 mg PO TID PRN #24 tablet MDD 3 02/12/19 Docusate Sodium [Colace] 100 mg PO TID #40 capsule 02/12/19 oxyCODONE HCL [Roxicodone -] 5 mg PO Q4H PRN #30 tablet MDD 6 02/12/19 Review of Systems - Review of Systems Constitutional: reports: No Symptoms Eyes: reports: No Symptoms HENT: reports: No Symptoms Neck: reports: Other (Cervical collar) Cardiovascular: reports: No Symptoms Respiratory: reports: No Symptoms Gastrointestinal: reports: Constipation Genitourinary: reports: No Symptoms Neurological: reports: Numbness, Weakness Endocrine: reports: Unexplained Weight Gain Psychiatric: reports: No Symptoms Pain Intensity: 10 Physical Exam Vital Signs: Vital Signs Temperature 99.5 F 02/12/19 18:00 Pulse Rate 112 H 02/12/19 18:00 Respiratory Rate 18 02/12/19 18:00 Blood Pressure 110/72 02/12/19 18:00 O2 Sat by Pulse Oximetry (%) 94 L 02/12/19 09:00 Constitutional: Yes: Well Nourished Eyes: Yes: WNL HENT: Yes: WNL Neck: Yes: WNL Respiratory: Yes: WNL Gastrointestinal: Yes: WNL Extremities: Yes: WNL Edema: No Neurological: Yes: WNL ...Motor Strength: LUE (weakness) Psychiatric: Yes: WNL Labs: CBC, BMP 02/12/19 05:30 02/12/19 05:30 Problem List - Problems (1) Muscle spasm Code(s): M62.838 - OTHER MUSCLE SPASM (2) Post-op pain Code(s): G89.18 - OTHER ACUTE POSTPROCEDURAL PAIN Assessment/Plan Discussed in detail and answered all her question. 1. continue current care 2. OOB and Ambulation with Assist 2. Flexeril 10 mg po TID 4. Neurontin 300 mg PO TID 5. Miralax Po x1 6. Physical therapy Thank you very much fro your kind referral Dr. Shepard [phone]
[2019-02-12] MEDS ORDERED: POLYETHYLENE GLYCOL 3350 119 GM BTL PO ONE (20:31)
[2019-02-12] MEDS: GABAPENTIN 300 MG CAPSULE (FP) PO SCH (21:22)
[2019-02-12] MEDS: CYCLOBENZAPRINE HCL 10 MG TABLET (FP) PO SCH (21:22)
--- NOTE | 2019-02-12 23:33 | PN ---
Progress Note, Physician - Current Medication List Current Medications: Active Medications Acetaminophen (Tylenol -) 650 mg PO Q4H PRN PRN Reason: HEADACHE Last Admin: 02/12/19 18:49 Dose: 650 mg Amlodipine Besylate (Norvasc -) 5 mg PO DAILY [facility] Last Admin: 02/12/19 09:01 Dose: 5 mg Aspirin (Asa -) 81 mg PO DAILY [facility] Last Admin: 02/12/19 09:00 Dose: 81 mg Cyclobenzaprine HCl (Flexeril -) 10 mg PO TID [facility] Last Admin: 02/12/19 21:22 Dose: 10 mg Diphenhydramine HCl (Benadryl -) 25 mg PO Q6H PRN PRN Reason: FOR ITCHING Docusate Sodium (Colace -) 100 mg PO TID [facility] Last Admin: 02/12/19 21:22 Dose: 100 mg Ferrous Sulfate (Feosol -) 325 mg PO DAILY@0800 [facility] Last Admin: 02/12/19 08:55 Dose: 325 mg Folic Acid (Folic Acid -) 1 mg PO DAILY [facility] Last Admin: 02/12/19 09:01 Dose: 1 mg Gabapentin (Neurontin -) 300 mg PO TID [facility] Last Admin: 02/12/19 21:22 Dose: 300 mg Heparin Sodium (Porcine) (Heparin -) 5,000 unit SQ TID [facility] Last Admin: 02/12/19 21:22 Dose: 5,000 unit Ondansetron HCl (Zofran Injection) 4 mg IVPUSH Q6H PRN PRN Reason: NAUSEA Valsartan (Diovan -) 320 mg PO DAILY [facility] Last Admin: 02/12/19 09:01 Dose: 320 mg - Objective Vital Signs: Vital Signs Temperature 99.5 F 02/12/19 18:00 Pulse Rate 112 H 02/12/19 18:00 Respiratory Rate 18 02/12/19 18:00 Blood Pressure 110/72 02/12/19 18:00 O2 Sat by Pulse Oximetry (%) 94 L 02/12/19 09:00 Labs: CBC, BMP 02/12/19 05:30 02/12/19 05:30 Problem List - Problems (1) Cervical post-laminectomy syndrome Code(s): M96.1 - POSTLAMINECTOMY SYNDROME, NOT ELSEWHERE CLASSIFIED (2) Arm pain Code(s): M79.603 - PAIN IN ARM, UNSPECIFIED (3) Leukocytosis Code(s): D72.829 - ELEVATED WHITE BLOOD CELL COUNT, UNSPECIFIED (4) Tachycardia Code(s): R00.0 - TACHYCARDIA, UNSPECIFIED (5) Anemia Code(s): D64.9 - ANEMIA, UNSPECIFIED (6) HTN (hypertension) Code(s): I10 - ESSENTIAL (PRIMARY) HYPERTENSION (7) GERD (gastroesophageal reflux disease) Code(s): K21.9 - GASTRO-ESOPHAGEAL REFLUX DISEASE WITHOUT ESOPHAGITIS
[2019-02-13] MEDS: GABAPENTIN 300 MG CAPSULE (FP) PO SCH ×3 (06:08→22:44)
[2019-02-13] MEDS: DOCUSATE SODIUM 100 MG CAPSULE (FP) PO SCH ×3 (06:08→22:44)
[2019-02-13] MEDS: HEPARIN NA (PORCINE) 5,000 UNITS/ML 1ML VIAL SQ SCH ×3 (06:08→22:44)
[2019-02-13] MEDS: CYCLOBENZAPRINE HCL 10 MG TABLET (FP) PO SCH ×3 (06:08→22:44)
[2019-02-13 08:08] LABS: BASO % 0.4 % (0-2.0); HEMATOCRIT 32.8 % (32.4-45.2); HEMOGLOBIN 10.7 GM/dL (10.7-15.3); LYMPH % 23.6 % (8-40); MCH 29.3 pg (25.7-33.7); MCHC 32.7 g/dl (32.0-36.0); MEAN CELL VOLUME 89.7 fl (80-96); MEAN PLT VOLUME 8.2 fl (7.5-11.1); MONO % 7.6 % (3.8-10.2); NEUT % 66.4 % (42.8-82.8); PLATELET COUNT 266 K/MM3 (134-434); RBC 3.65 M/mm3 (3.60-5.2); RDW 13.9 % (11.6-15.6); WHITE BLOOD COUNT 14.1 K/mm3 (4.0-10.0)
[2019-02-13 08:47] LABS: BILIRUBIN,TOTAL 0.5 mg/dL (0.2-1); CALCIUM 8.8 mg/dL (8.5-10.1); POTASSIUM 4.2 mmol/L (3.5-5.1); TOT PROT 7.3 g/dl (6.4-8.2)
[2019-02-13] MEDS ORDERED: PT OWN MED DRAWER 7, Y5N ONE (10:16)
[2019-02-13] MEDS: FERROUS SO4 325 MG TABLET (FP) PO SCH (10:21)
[2019-02-13] MEDS: amLODIPine BESYLATE 5 MG TABLET (FP) PO SCH (10:21)
[2019-02-13] MEDS: VALSARTAN 160 MG TABLET (UD) PO SCH (10:21)
[2019-02-13] MEDS: ASPIRIN 81 MG CHEWABLE TABLETS PO SCH (10:21)
[2019-02-13] MEDS: FOLIC ACID 1 MG TABLET (FP) PO SCH (10:21)
[2019-02-13] MEDS: ACETAMINOPHEN 325 MG TABLET (FP) PO PRN ×2 (10:21→16:03)
[2019-02-13] MEDS ORDERED: oxyCODONE HCL 5 MG TABLET PO PRN (12:25)
[2019-02-13] MEDS ORDERED: ACETAMINOPHEN 325 MG TABLET (FP) PO PRN ×2 (12:25→12:28)
--- NOTE | 2019-02-13 13:31 | PN ---
Progress Note, Physician History of Present Illness: Pt seen and examined, events noted. Pt c/o severe pain in Lt arm limiting movement. Temp mildly elevated 100.4F. Denies SOB but not taking deep breaths, no sputum production. No other specific complaints. - Current Medication List Current Medications: Active Medications Acetaminophen (Tylenol -) 325 mg PO Q6H PRN PRN Reason: PAIN LEVEL 4-7 Acetaminophen (Tylenol -) 650 mg PO Q6H PRN PRN Reason: PAIN LEVEL 8-10 Acetaminophen (Tylenol -) 650 mg PO Q4H PRN PRN Reason: PAIN LEVEL 1-4, WILLIAM, FEVER Amlodipine Besylate (Norvasc -) 5 mg PO DAILY [facility] Last Admin: 02/13/19 10:21 Dose: 5 mg Aspirin (Asa -) 81 mg PO DAILY [facility] Last Admin: 02/13/19 10:21 Dose: 81 mg Cyclobenzaprine HCl (Flexeril -) 10 mg PO TID [facility] Last Admin: 02/13/19 06:08 Dose: 10 mg Diphenhydramine HCl (Benadryl -) 25 mg PO Q6H PRN PRN Reason: FOR ITCHING Docusate Sodium (Colace -) 100 mg PO TID [facility] Last Admin: 02/13/19 06:08 Dose: 100 mg Ferrous Sulfate (Feosol -) 325 mg PO DAILY@0800 [facility] Last Admin: 02/13/19 10:21 Dose: 325 mg Folic Acid (Folic Acid -) 1 mg PO DAILY [facility] Last Admin: 02/13/19 10:21 Dose: 1 mg Gabapentin (Neurontin -) 300 mg PO TID [facility] Last Admin: 02/13/19 06:08 Dose: 300 mg Heparin Sodium (Porcine) (Heparin -) 5,000 unit SQ TID [facility] Last Admin: 02/13/19 06:08 Dose: 5,000 unit Ondansetron HCl (Zofran Injection) 4 mg IVPUSH Q6H PRN PRN Reason: NAUSEA Oxycodone HCl (Roxicodone -) 5 mg PO Q6H PRN PRN Reason: PAIN LEVEL 4-7 Oxycodone HCl (Roxicodone -) 10 mg PO Q6H PRN PRN Reason: PAIN LEVEL 8-10 Valsartan (Diovan -) 320 mg PO DAILY [facility] Last Admin: 02/13/19 10:21 Dose: 320 mg - Objective Vital Signs: Vital Signs Temperature 100.4 F H 02/13/19 10:00 Pulse Rate 123 H 02/13/19 10:00 Respiratory Rate 20 02/13/19 10:00 Blood Pressure 158/93 02/13/19 10:00 O2 Sat by Pulse Oximetry (%) 94 L 02/12/19 09:00 Constitutional: Yes: Mild Distress Cardiovascular: Yes: Tachycardia Respiratory: Yes: CTA Bilaterally, Other (poor inspiratory effort) Gastrointestinal: Yes: Normal Bowel Sounds, Soft, Abdomen, Obese Genitourinary: Yes: WNL Musculoskeletal: Yes: Back Pain Integumentary: Yes: WNL Wound/Incision: Yes: Other (post neck site clean/no erythema/edema/induration or drainage) Neurological: Yes: Alert, Oriented Labs: CBC, BMP 02/13/19 07:15 02/13/19 07:15 - ....Imaging Cat Scan: Report Reviewed (Chest: consolidation/atelectasis RUL/RML) Problem List - Problems (1) Leukocytosis Code(s): D72.829 - ELEVATED WHITE BLOOD CELL COUNT, UNSPECIFIED (2) Muscle spasm Code(s): M62.838 - OTHER MUSCLE SPASM (3) Post-op pain Code(s): G89.18 - OTHER ACUTE POSTPROCEDURAL PAIN (4) Shoulder pain Code(s): M25.519 - PAIN IN UNSPECIFIED SHOULDER (5) Sinus tachycardia Code(s): R00.0 - TACHYCARDIA, UNSPECIFIED (6) Cervical spondylosis Code(s): M47.812 - SPONDYLOSIS W/O MYELOPATHY OR RADICULOPATHY, CERVICAL REGION (7) HTN (hypertension) Code(s): I10 - ESSENTIAL (PRIMARY) HYPERTENSION Assessment/Plan 53 y.o. female with PMH of chronic back pain/cervical radiculopathy, HTN, obesity, OA who underwent C3-C7 spinal fusion/laminectomie/osteotomies noted to have persistent leukoyctosis and low grade fevers CT chest results noted: Consolidation/infiltrates suggestive of PNA Atelectasis Rt shoulder pain Leukocytosis Fever -- Will start Levaquin 500 mg po daily for now -- pain control, encourage incentive spirometry use -- blood/urine cultures, repeat wbc to monitor trend, follow temperatures -- neurosurgical follow up Pt is alert/stable at this time
[2019-02-13] MEDS: oxyCODONE HCL 5 MG TABLET PO PRN (16:02)
--- NOTE | 2019-02-13 18:07 | PN ---
Progress Note, Physician Chief Complaint: Pt A&Ox3; still with numbness of left arm, weakness and pain in the arm when she stands that is almost unbearable. History of Present Illness: 53yo black woman with PMHx HTN, obesity, hyperglycemia, now s/p C3-C7 posterior fusion, POD 1. Neck pain was initially controlled, but she was very concerned that she had continued left shoulder weakness, and later felt pain at the surgical site. Pt denies previous issues with her Left arm. Pt denies numbness or weakness in the left hand. No fever, chills, n/v, chest pain. Pt was noted to be tachycardic post-operatively while in pain. - Current Medication List Current Medications: Active Medications Acetaminophen (Tylenol -) 325 mg PO Q6H PRN PRN Reason: PAIN LEVEL 4-7 Last Admin: 02/13/19 16:03 Dose: 325 mg Acetaminophen (Tylenol -) 650 mg PO Q6H PRN PRN Reason: PAIN LEVEL 8-10 Acetaminophen (Tylenol -) 650 mg PO Q4H PRN PRN Reason: PAIN LEVEL 1-4, WILLIAM, FEVER Amlodipine Besylate (Norvasc -) 5 mg PO DAILY [facility] Last Admin: 02/13/19 10:21 Dose: 5 mg Aspirin (Asa -) 81 mg PO DAILY [facility] Last Admin: 02/13/19 10:21 Dose: 81 mg Cyclobenzaprine HCl (Flexeril -) 10 mg PO TID [facility] Last Admin: 02/13/19 14:10 Dose: 10 mg Diphenhydramine HCl (Benadryl -) 25 mg PO Q6H PRN PRN Reason: FOR ITCHING Docusate Sodium (Colace -) 100 mg PO TID [facility] Last Admin: 02/13/19 14:11 Dose: 100 mg Ferrous Sulfate (Feosol -) 325 mg PO DAILY@0800 [facility] Last Admin: 02/13/19 10:21 Dose: 325 mg Folic Acid (Folic Acid -) 1 mg PO DAILY [facility] Last Admin: 02/13/19 10:21 Dose: 1 mg Gabapentin (Neurontin -) 300 mg PO TID [facility] Last Admin: 02/13/19 14:10 Dose: 300 mg Heparin Sodium (Porcine) (Heparin -) 5,000 unit SQ TID [facility] Last Admin: 02/13/19 14:11 Dose: 5,000 unit Levofloxacin (Levaquin -) 500 mg PO DAILY@0600 [facility] Last Admin: 02/13/19 14:10 Dose: 500 mg Oxycodone HCl (Roxicodone -) 5 mg PO Q6H PRN PRN Reason: PAIN LEVEL 4-7 Last Admin: 02/13/19 16:02 Dose: 5 mg Oxycodone HCl (Roxicodone -) 10 mg PO Q6H PRN PRN Reason: PAIN LEVEL 8-10 Valsartan (Diovan -) 320 mg PO DAILY [facility] Last Admin: 02/13/19 10:21 Dose: 320 mg - Objective Vital Signs: Vital Signs Temperature 99.2 F 02/13/19 16:43 Pulse Rate 133 H 02/13/19 16:43 Respiratory Rate 20 02/13/19 16:43 Blood Pressure 117/60 02/13/19 16:43 O2 Sat by Pulse Oximetry (%) 95 02/13/19 09:00 Constitutional: Yes: Anxious Labs: CBC, BMP 02/13/19 07:15 02/13/19 07:15 Problem List - Problems (1) Shoulder pain Assessment/Plan: c/o weakness in left shoulder (new, occurring since cervical spine surgery a few days ago Code(s): M25.519 - PAIN IN UNSPECIFIED SHOULDER (2) Cervical post-laminectomy syndrome Assessment/Plan: f/u with neurosurgeon Code(s): M96.1 - POSTLAMINECTOMY SYNDROME, NOT ELSEWHERE CLASSIFIED (3) Hypertension Assessment/Plan: On valsartan and amlodipine. F/u BP and HR. Pain management. Code(s): I10 - ESSENTIAL (PRIMARY) HYPERTENSION Qualifiers: Hypertension type: essential hypertension Qualified Code(s): I10 - Essential (primary) hypertension (4) Sinus tachycardia Assessment/Plan: Multiple eitologies, including pain, anxiety, dehydration, CHF, fever, anemia. CTA chest: no PE. TSH low: f/u TFTs Encourage fluids. Code(s): R00.0 - TACHYCARDIA, UNSPECIFIED (5) Fever Assessment/Plan: Leukocytosis; pulmonary infiltrates; sinus tachycardia. On Levaquin. Code(s): R50.9 - FEVER, UNSPECIFIED (6) Iron deficiency anemia Code(s): D50.9 - IRON DEFICIENCY ANEMIA, UNSPECIFIED
--- NOTE | 2019-02-13 18:11 | PN ---
Progress Note, Physician Chief Complaint: Pt A&Ox3; still with numbness of left arm, weakness and pain in the arm when she stands that is almost unbearable. History of Present Illness: 53yo black woman with PMHx HTN, obesity, hyperglycemia, now s/p C3-C7 posterior fusion, POD 1. Neck pain was initially controlled, but she was very concerned that she had continued left shoulder weakness, and later felt pain at the surgical site. Pt denies previous issues with her Left arm. Pt denies numbness or weakness in the left hand. No fever, chills, n/v, chest pain. Pt was noted to be tachycardic post-operatively while in pain. - Current Medication List Current Medications: Active Medications Acetaminophen (Tylenol -) 325 mg PO Q6H PRN PRN Reason: PAIN LEVEL 4-7 Last Admin: 02/13/19 16:03 Dose: 325 mg Acetaminophen (Tylenol -) 650 mg PO Q6H PRN PRN Reason: PAIN LEVEL 8-10 Acetaminophen (Tylenol -) 650 mg PO Q4H PRN PRN Reason: PAIN LEVEL 1-4, WILLIAM, FEVER Amlodipine Besylate (Norvasc -) 5 mg PO DAILY [facility] Last Admin: 02/13/19 10:21 Dose: 5 mg Aspirin (Asa -) 81 mg PO DAILY [facility] Last Admin: 02/13/19 10:21 Dose: 81 mg Cyclobenzaprine HCl (Flexeril -) 10 mg PO TID [facility] Last Admin: 02/13/19 14:10 Dose: 10 mg Diphenhydramine HCl (Benadryl -) 25 mg PO Q6H PRN PRN Reason: FOR ITCHING Docusate Sodium (Colace -) 100 mg PO TID [facility] Last Admin: 02/13/19 14:11 Dose: 100 mg Ferrous Sulfate (Feosol -) 325 mg PO DAILY@0800 [facility] Last Admin: 02/13/19 10:21 Dose: 325 mg Folic Acid (Folic Acid -) 1 mg PO DAILY [facility] Last Admin: 02/13/19 10:21 Dose: 1 mg Gabapentin (Neurontin -) 300 mg PO TID [facility] Last Admin: 02/13/19 14:10 Dose: 300 mg Heparin Sodium (Porcine) (Heparin -) 5,000 unit SQ TID [facility] Last Admin: 05/11/19 14:11 Dose: 5,000 unit Levofloxacin (Levaquin -) 500 mg PO DAILY@0600 [facility] Last Admin: 02/13/19 14:10 Dose: 500 mg Oxycodone HCl (Roxicodone -) 5 mg PO Q6H PRN PRN Reason: PAIN LEVEL 4-7 Last Admin: 02/13/19 16:02 Dose: 5 mg Oxycodone HCl (Roxicodone -) 10 mg PO Q6H PRN PRN Reason: PAIN LEVEL 8-10 Valsartan (Diovan -) 320 mg PO DAILY [facility] Last Admin: 02/13/19 10:21 Dose: 320 mg - Objective Vital Signs: Vital Signs Temperature 99.2 F 02/13/19 16:43 Pulse Rate 133 H 02/13/19 16:43 Respiratory Rate 20 02/13/19 16:43 Blood Pressure 117/60 02/13/19 16:43 O2 Sat by Pulse Oximetry (%) 95 02/13/19 09:00 Constitutional: Yes: Anxious, Moderate Distress, Obese Eyes: Yes: WNL HENT: Yes: WNL Neck: Yes: WNL, Decreased ROM, Other (neck brace post-surgery) Cardiovascular: Yes: S1, S2, S4 Respiratory: Yes: WNL Gastrointestinal: Yes: Soft, Abdomen, Obese ...Rectal Exam: Yes: Deferred Genitourinary: No: Anuria Breast(s): Yes: WNL Musculoskeletal: Yes: WNL, Joint Stiffness, Muscle Pain, Muscle Weakness Extremities: Yes: Other (left arm: weak shoulder; hand podiatrist fair, and nearly equal to right) Edema: No Peripheral Pulses WNL: No Integumentary: Yes: Incision Wound/Incision: Yes: Bleeding, Other Neurological: Yes: Alert, Weakness Psychiatric: Yes: Alert, Oriented, Other (anxiety) Labs: CBC, BMP 02/13/19 07:15 02/13/19 07:15 Abnormal Lab Results 02/13/19 02/13/19 07:15 07:15 WBC 14.1 H Absolute Neuts (auto) 9.3 H Anion Gap 6 L Albumin 3.0 L Abnormal Lab Results 02/14/19 02/14/19 07:00 07:00 WBC 12.9 H RBC 3.44 L Hgb 10.1 L Hct 30.7 L Absolute Neuts (auto) 8.2 H Anion Gap 6 L Calcium 8.1 L Problem List - Problems (1) Shoulder pain Assessment/Plan: c/o weakness in left shoulder (pt says it is new, occurring since cervical spine surgery a few days ago Code(s): M25.519 - PAIN IN UNSPECIFIED SHOULDER (2) Cervical post-laminectomy syndrome Assessment/Plan: f/u with neurosurgeon Code(s): M96.1 - POSTLAMINECTOMY SYNDROME, NOT ELSEWHERE CLASSIFIED (3) Hypertension Assessment/Plan: On valsartan and amlodipine. F/u BP and HR. Pain management. Code(s): I10 - ESSENTIAL (PRIMARY) HYPERTENSION Qualifiers: Hypertension type: essential hypertension Qualified Code(s): I10 - Essential (primary) hypertension (4) Sinus tachycardia Assessment/Plan: Multiple eitologies, including pain, anxiety, dehydration, CHF, fever, anemia. CTA chest: no PE. TSH low: f/u TFTs Encourage fluids. Code(s): R00.0 - TACHYCARDIA, UNSPECIFIED (5) Fever Code(s): R50.9 - FEVER, UNSPECIFIED (6) Iron deficiency anemia Code(s): D50.9 - IRON DEFICIENCY ANEMIA, UNSPECIFIED
--- NOTE | 2019-02-13 21:14 | PN ---
Progress Note, Physician - Current Medication List Current Medications: Active Medications Acetaminophen (Tylenol -) 325 mg PO Q6H PRN PRN Reason: PAIN LEVEL 4-7 Last Admin: 02/13/19 16:03 Dose: 325 mg Acetaminophen (Tylenol -) 650 mg PO Q6H PRN PRN Reason: PAIN LEVEL 8-10 Acetaminophen (Tylenol -) 650 mg PO Q4H PRN PRN Reason: PAIN LEVEL 1-4, WILLIAM, FEVER Amlodipine Besylate (Norvasc -) 5 mg PO DAILY [facility] Last Admin: 02/13/19 10:21 Dose: 5 mg Aspirin (Asa -) 81 mg PO DAILY [facility] Last Admin: 02/13/19 10:21 Dose: 81 mg Cyclobenzaprine HCl (Flexeril -) 10 mg PO TID [facility] Last Admin: 02/13/19 14:10 Dose: 10 mg Diphenhydramine HCl (Benadryl -) 25 mg PO Q6H PRN PRN Reason: FOR ITCHING Docusate Sodium (Colace -) 100 mg PO TID [facility] Last Admin: 02/13/19 14:11 Dose: 100 mg Ferrous Sulfate (Feosol -) 325 mg PO DAILY@0800 [facility] Last Admin: 02/13/19 10:21 Dose: 325 mg Folic Acid (Folic Acid -) 1 mg PO DAILY [facility] Last Admin: 02/13/19 10:21 Dose: 1 mg Gabapentin (Neurontin -) 300 mg PO TID [facility] Last Admin: 02/13/19 14:10 Dose: 300 mg Heparin Sodium (Porcine) (Heparin -) 5,000 unit SQ TID [facility] Last Admin: 02/13/19 14:11 Dose: 5,000 unit Levofloxacin (Levaquin -) 500 mg PO DAILY@0600 [facility] Last Admin: 02/13/19 14:10 Dose: 500 mg Oxycodone HCl (Roxicodone -) 5 mg PO Q6H PRN PRN Reason: PAIN LEVEL 4-7 Last Admin: 02/13/19 16:02 Dose: 5 mg Oxycodone HCl (Roxicodone -) 10 mg PO Q6H PRN PRN Reason: PAIN LEVEL 8-10 Valsartan (Diovan -) 320 mg PO DAILY [facility] Last Admin: 02/13/19 10:21 Dose: 320 mg - Objective Vital Signs: Vital Signs Temperature 99.2 F 02/13/19 16:43 Pulse Rate 133 H 02/13/19 16:43 Respiratory Rate 20 02/13/19 16:43 Blood Pressure 117/60 02/13/19 16:43 O2 Sat by Pulse Oximetry (%) 95 02/13/19 09:00 Labs: CBC, BMP 02/13/19 07:15 02/13/19 07:15 Problem List - Problems (1) Cervical post-laminectomy syndrome Code(s): M96.1 - POSTLAMINECTOMY SYNDROME, NOT ELSEWHERE CLASSIFIED (2) Arm pain Code(s): M79.603 - PAIN IN ARM, UNSPECIFIED (3) Leukocytosis Code(s): D72.829 - ELEVATED WHITE BLOOD CELL COUNT, UNSPECIFIED (4) Tachycardia Code(s): R00.0 - TACHYCARDIA, UNSPECIFIED (5) Anemia Code(s): D64.9 - ANEMIA, UNSPECIFIED (6) HTN (hypertension) Code(s): I10 - ESSENTIAL (PRIMARY) HYPERTENSION (7) GERD (gastroesophageal reflux disease) Code(s): K21.9 - GASTRO-ESOPHAGEAL REFLUX DISEASE WITHOUT ESOPHAGITIS
[2019-02-14] MEDS: CYCLOBENZAPRINE HCL 10 MG TABLET (FP) PO SCH ×3 (05:59→21:17)
[2019-02-14] MEDS: DOCUSATE SODIUM 100 MG CAPSULE (FP) PO SCH ×3 (05:59→21:17)
[2019-02-14] MEDS: HEPARIN NA (PORCINE) 5,000 UNITS/ML 1ML VIAL SQ SCH ×3 (05:59→21:17)
[2019-02-14] MEDS: GABAPENTIN 300 MG CAPSULE (FP) PO SCH ×3 (05:59→21:17)
[2019-02-14 07:57] LABS: BASO % 0.9 % (0-2.0); HEMATOCRIT 30.7 % (32.4-45.2); HEMOGLOBIN 10.1 GM/dL (10.7-15.3); LYMPH % 24.9 % (8-40); MCH 29.5 pg (25.7-33.7); MEAN CELL VOLUME 89.4 fl (80-96); MEAN PLT VOLUME 7.9 fl (7.5-11.1); MONO % 7.4 % (3.8-10.2); NEUT % 63.8 % (42.8-82.8); PLATELET COUNT 287 K/MM3 (134-434); RBC 3.44 M/mm3 (3.60-5.2); RDW 13.9 % (11.6-15.6); WHITE BLOOD COUNT 12.9 K/mm3 (4.0-10.0)
[2019-02-14 08:17] LABS: CALCIUM 8.1 mg/dL (8.5-10.1); CREATININE 1.1 mg/dL (0.55-1.3); POTASSIUM 4.3 mmol/L (3.5-5.1)
[2019-02-14] MEDS: VALSARTAN 160 MG TABLET (UD) PO SCH (09:17)
[2019-02-14] MEDS: ASPIRIN 81 MG CHEWABLE TABLETS PO SCH (09:18)
[2019-02-14] MEDS: amLODIPine BESYLATE 5 MG TABLET (FP) PO SCH (09:18)
[2019-02-14] MEDS: FOLIC ACID 1 MG TABLET (FP) PO SCH (09:18)
[2019-02-14] MEDS: FERROUS SO4 325 MG TABLET (FP) PO SCH (09:18)
[2019-02-14] MEDS: ACETAMINOPHEN 325 MG TABLET (FP) PO PRN (14:13)
[2019-02-14] MEDS: VANCOMYCIN 1 GRAM (PRE-DOCKED) 1,000 MG/250 ML BAG IVPB SCH (14:13)
[2019-02-14] MEDS: oxyCODONE HCL 5 MG TABLET PO PRN (14:14)
--- NOTE | 2019-02-14 15:45 | PN ---
Progress Note, Physician History of Present Illness: Pt states she feel ok today but still with severe pain down her Lt shoulder/ arm. Denies any other specific complaints. Cervical spine MRI results noted. Low grade fevers last night and this am. - Current Medication List Current Medications: Active Medications Acetaminophen (Tylenol -) 325 mg PO Q6H PRN PRN Reason: PAIN LEVEL 4-7 Last Admin: 02/14/19 14:13 Dose: 325 mg Acetaminophen (Tylenol -) 650 mg PO Q6H PRN PRN Reason: PAIN LEVEL 8-10 Last Admin: 02/14/19 09:17 Dose: 650 mg Acetaminophen (Tylenol -) 650 mg PO Q4H PRN PRN Reason: PAIN LEVEL 1-4, WILLIAM, FEVER Amlodipine Besylate (Norvasc -) 5 mg PO DAILY [facility] Last Admin: 02/14/19 09:18 Dose: 5 mg Aspirin (Asa -) 81 mg PO DAILY [facility] Last Admin: 02/14/19 09:18 Dose: 81 mg Cyclobenzaprine HCl (Flexeril -) 10 mg PO TID [facility] Last Admin: 02/14/19 15:00 Dose: 10 mg Diphenhydramine HCl (Benadryl -) 25 mg PO Q6H PRN PRN Reason: FOR ITCHING Docusate Sodium (Colace -) 100 mg PO TID [facility] Last Admin: 02/14/19 15:01 Dose: 100 mg Ferrous Sulfate (Feosol -) 325 mg PO DAILY@0800 [facility] Last Admin: 02/14/19 09:18 Dose: 325 mg Folic Acid (Folic Acid -) 1 mg PO DAILY [facility] Last Admin: 02/14/19 09:18 Dose: 1 mg Gabapentin (Neurontin -) 300 mg PO TID [facility] Last Admin: 02/14/19 15:00 Dose: 300 mg Heparin Sodium (Porcine) (Heparin -) 5,000 unit SQ TID [facility] Last Admin: 02/14/19 15:00 Dose: 5,000 unit Vancomycin HCl (Vancomycin (Pre-Docked)) 1,000 mg in 250 mls @ 166.667 mls/hr IVPB Q12H [facility]; Protocol Last Admin: 02/14/19 14:13 Dose: 166.667 mls/hr Levofloxacin (Levaquin -) 500 mg PO DAILY@0600 [facility] Last Admin: 02/14/19 05:59 Dose: 500 mg Oxycodone HCl (Roxicodone -) 5 mg PO Q6H PRN PRN Reason: PAIN LEVEL 4-7 Last Admin: 02/14/19 14:14 Dose: 5 mg Oxycodone HCl (Roxicodone -) 10 mg PO Q6H PRN PRN Reason: PAIN LEVEL 8-10 Valsartan (Diovan -) 320 mg PO DAILY [facility] Last Admin: 02/14/19 09:17 Dose: 320 mg - Objective Vital Signs: Vital Signs Temperature 99.0 F 02/14/19 14:59 Pulse Rate 117 H 02/14/19 14:59 Respiratory Rate 18 02/14/19 14:59 Blood Pressure 146/58 L 02/14/19 14:59 O2 Sat by Pulse Oximetry (%) 95 02/14/19 09:00 Constitutional: Yes: No Distress Cardiovascular: Yes: Tachycardia Respiratory: Yes: Regular Gastrointestinal: Yes: Normal Bowel Sounds, Soft Wound/Incision: Yes: Other (posterior neck dressing intact/neck collar on) Neurological: Yes: Alert, Oriented, Other (Lt shoulder pain) Labs: CBC, BMP 02/14/19 07:00 02/14/19 07:00 Microbiology 02/13/19 12:50 Blood - Peripheral Venous Blood Culture - Preliminary NO GROWTH OBTAINED AFTER 24 HOURS, INCUBATION TO CONTINUE FOR 4 DAYS. 02/13/19 12:40 Blood - Peripheral Venous Blood Culture - Preliminary NO GROWTH OBTAINED AFTER 24 HOURS, INCUBATION TO CONTINUE FOR 4 DAYS. - ....Imaging MRI: Report Reviewed Problem List - Problems (1) Leukocytosis Code(s): D72.829 - ELEVATED WHITE BLOOD CELL COUNT, UNSPECIFIED (2) Muscle spasm Code(s): M62.838 - OTHER MUSCLE SPASM (3) Post-op pain Code(s): G89.18 - OTHER ACUTE POSTPROCEDURAL PAIN (4) Shoulder pain Code(s): M25.519 - PAIN IN UNSPECIFIED SHOULDER (5) Sinus tachycardia Code(s): R00.0 - TACHYCARDIA, UNSPECIFIED (6) Cervical spondylosis Code(s): M47.812 - SPONDYLOSIS W/O MYELOPATHY OR RADICULOPATHY, CERVICAL REGION (7) HTN (hypertension) Code(s): I10 - ESSENTIAL (PRIMARY) HYPERTENSION Assessment/Plan 53 y.o. female with PMH of chronic back pain/cervical radiculopathy, HTN, obesity, OA who underwent C3-C7 spinal fusion/laminectomy/osteotomies noted to have persistent leukoyctosis and low grade fevers Fever Leukocytosis s/p Cervical spine fusion/laminectomy/osteotomy Cervical spine subcutaneous collections/ ?seroma Atelectasis/infiltrates - without respiratory symptoms Lt shoulder pain Cervical MRI results noted -- On Levaquin, add Vancomycin for now empirically -- pt with low grade fevers, wbc slightly improved since yesterday -- pain control, incentive spirometry use -- blood cultures neg 24hr, f/u urine cultures -- neurosurgery follow up -- continue monitor fever/wbc trend Pt is alert/stable at this time
--- NOTE | 2019-02-14 23:15 | PN ---
Progress Note, Physician History of Present Illness: Pt c/o lt shouilder pain but also describes a feeling that she cannot move her LUE. However she is using it to eat and she states that she can only use from her lt elbow done. - Current Medication List Current Medications: Active Medications Acetaminophen (Tylenol -) 325 mg PO Q6H PRN PRN Reason: PAIN LEVEL 4-7 Last Admin: 02/14/19 14:13 Dose: 325 mg Acetaminophen (Tylenol -) 650 mg PO Q6H PRN PRN Reason: PAIN LEVEL 8-10 Last Admin: 02/14/19 09:17 Dose: 650 mg Acetaminophen (Tylenol -) 650 mg PO Q4H PRN PRN Reason: PAIN LEVEL 1-4, WILLIAM, FEVER Amlodipine Besylate (Norvasc -) 5 mg PO DAILY [facility] Last Admin: 02/14/19 09:18 Dose: 5 mg Aspirin (Asa -) 81 mg PO DAILY [facility] Last Admin: 02/14/19 09:18 Dose: 81 mg Cyclobenzaprine HCl (Flexeril -) 10 mg PO TID [facility] Last Admin: 02/14/19 21:17 Dose: 10 mg Diphenhydramine HCl (Benadryl -) 25 mg PO Q6H PRN PRN Reason: FOR ITCHING Docusate Sodium (Colace -) 100 mg PO TID [facility] Last Admin: 02/14/19 21:17 Dose: 100 mg Ferrous Sulfate (Feosol -) 325 mg PO DAILY@0800 [facility] Last Admin: 02/14/19 09:18 Dose: 325 mg Folic Acid (Folic Acid -) 1 mg PO DAILY [facility] Last Admin: 02/14/19 09:18 Dose: 1 mg Gabapentin (Neurontin -) 300 mg PO TID [facility] Last Admin: 02/14/19 21:17 Dose: 300 mg Heparin Sodium (Porcine) (Heparin -) 5,000 unit SQ TID [facility] Last Admin: 02/14/19 21:17 Dose: 5,000 unit Vancomycin HCl (Vancomycin (Pre-Docked)) 1,000 mg in 250 mls @ 166.667 mls/hr IVPB Q12H [facility]; Protocol Last Admin: 02/14/19 14:13 Dose: 166.667 mls/hr Levofloxacin (Levaquin -) 500 mg PO DAILY@0600 [facility] Last Admin: 02/14/19 05:59 Dose: 500 mg Oxycodone HCl (Roxicodone -) 5 mg PO Q6H PRN PRN Reason: PAIN LEVEL 4-7 Last Admin: 02/14/19 14:14 Dose: 5 mg Oxycodone HCl (Roxicodone -) 10 mg PO Q6H PRN PRN Reason: PAIN LEVEL 8-10 Valsartan (Diovan -) 320 mg PO DAILY [facility] Last Admin: 02/14/19 09:17 Dose: 320 mg - Objective Vital Signs: Vital Signs Temperature 99.3 F 02/14/19 17:08 Pulse Rate 120 H 02/14/19 17:08 Respiratory Rate 20 02/14/19 17:08 Blood Pressure 118/60 02/14/19 17:08 O2 Sat by Pulse Oximetry (%) 95 02/14/19 09:00 Constitutional: Yes: Well Nourished Cardiovascular: Yes: WNL, Regular Rate and Rhythm Respiratory: Yes: WNL, Regular, CTA Bilaterally Gastrointestinal: Yes: WNL, Normal Bowel Sounds, Soft Extremities: Yes: Other (No pain on palpation or movement of LUE) Labs: CBC, BMP 02/14/19 07:00 02/14/19 07:00 Problem List - Problems (1) Cervical post-laminectomy syndrome Assessment/Plan: S/P spinal fusion w/ lamenctomy of C3-C7 Cont pain management Repeat MRI shows loculated fluid at C2-C3 ?seroma Code(s): M96.1 - POSTLAMINECTOMY SYNDROME, NOT ELSEWHERE CLASSIFIED (2) Arm pain Assessment/Plan: Will get xray of lt shoulder Ortho consult Code(s): M79.603 - PAIN IN ARM, UNSPECIFIED (3) Leukocytosis Assessment/Plan: BC/urine culture remain negative ?infiltrate on CTA chest Cont po levaquin Cont IV vanco Monitor WBC wc could also be elevated due to steroids Code(s): D72.829 - ELEVATED WHITE BLOOD CELL COUNT, UNSPECIFIED (4) Tachycardia Assessment/Plan: Sinusis tachy Could be due to pain Code(s): R00.0 - TACHYCARDIA, UNSPECIFIED (5) Anemia Assessment/Plan: Monitor H/H Cont feso4 Code(s): D64.9 - ANEMIA, UNSPECIFIED (6) HTN (hypertension) Assessment/Plan: BP stable Cont asa/norvasc/diovan Code(s): I10 - ESSENTIAL (PRIMARY) HYPERTENSION (7) GERD (gastroesophageal reflux disease) Code(s): K21.9 - GASTRO-ESOPHAGEAL REFLUX DISEASE WITHOUT ESOPHAGITIS
[2019-02-15] MEDS: VANCOMYCIN 1 GRAM (PRE-DOCKED) 1,000 MG/250 ML BAG IVPB SCH ×2 (00:59→15:27)
[2019-02-15] MEDS: DOCUSATE SODIUM 100 MG CAPSULE (FP) PO SCH ×3 (05:46→21:22)
[2019-02-15] MEDS: GABAPENTIN 300 MG CAPSULE (FP) PO SCH ×3 (05:46→21:22)
[2019-02-15] MEDS: HEPARIN NA (PORCINE) 5,000 UNITS/ML 1ML VIAL SQ SCH ×3 (05:46→21:22)
[2019-02-15] MEDS: CYCLOBENZAPRINE HCL 10 MG TABLET (FP) PO SCH (05:46)
--- NOTE | 2019-02-15 06:28 | PN ---
Progress Note, Physician Chief Complaint: Pt A&Ox3; still with numbness of left arm, weakness and pain in the arm when she stands. History of Present Illness: 53yo black woman with PMHx HTN, obesity, hyperglycemia, now s/p C3-C7 posterior fusion, POD 1. Neck pain was initially controlled, but she was very concerned that she had continued left shoulder weakness, and later felt pain at the surgical site. Pt denies previous issues with her Left arm. Pt denies numbness or weakness in the left hand. No fever, chills, n/v, chest pain. Pt was noted to be tachycardic post-operatively while in pain. - Current Medication List Current Medications: Active Medications Acetaminophen (Tylenol -) 325 mg PO Q6H PRN PRN Reason: PAIN LEVEL 4-7 Last Admin: 02/14/19 14:13 Dose: 325 mg Acetaminophen (Tylenol -) 650 mg PO Q6H PRN PRN Reason: PAIN LEVEL 8-10 Last Admin: 02/14/19 09:17 Dose: 650 mg Acetaminophen (Tylenol -) 650 mg PO Q4H PRN PRN Reason: PAIN LEVEL 1-4, WILLIAM, FEVER Amlodipine Besylate (Norvasc -) 5 mg PO DAILY [facility] Last Admin: 02/14/19 09:18 Dose: 5 mg Aspirin (Asa -) 81 mg PO DAILY [facility] Last Admin: 02/14/19 09:18 Dose: 81 mg Cyclobenzaprine HCl (Flexeril -) 10 mg PO TID [facility] Last Admin: 02/15/19 05:46 Dose: 10 mg Diphenhydramine HCl (Benadryl -) 25 mg PO Q6H PRN PRN Reason: FOR ITCHING Docusate Sodium (Colace -) 100 mg PO TID [facility] Last Admin: 02/15/19 05:46 Dose: 100 mg Ferrous Sulfate (Feosol -) 325 mg PO DAILY@0800 [facility] Last Admin: 02/14/19 09:18 Dose: 325 mg Folic Acid (Folic Acid -) 1 mg PO DAILY [facility] Last Admin: 02/14/19 09:18 Dose: 1 mg Gabapentin (Neurontin -) 300 mg PO TID [facility] Last Admin: 02/15/19 05:46 Dose: 300 mg Heparin Sodium (Porcine) (Heparin -) 5,000 unit SQ TID [facility] Last Admin: 02/15/19 05:46 Dose: 5,000 unit Vancomycin HCl (Vancomycin (Pre-Docked)) 1,000 mg in 250 mls @ 166.667 mls/hr IVPB Q12H [facility]; Protocol Last Admin: 02/15/19 00:59 Dose: 166.667 mls/hr Levofloxacin (Levaquin -) 500 mg PO DAILY@0600 [facility] Last Admin: 02/15/19 05:46 Dose: 500 mg Oxycodone HCl (Roxicodone -) 5 mg PO Q6H PRN PRN Reason: PAIN LEVEL 4-7 Last Admin: 02/14/19 14:14 Dose: 5 mg Oxycodone HCl (Roxicodone -) 10 mg PO Q6H PRN PRN Reason: PAIN LEVEL 8-10 Last Admin: 02/14/19 23:53 Dose: 10 mg Valsartan (Diovan -) 320 mg PO DAILY [facility] Last Admin: 02/14/19 09:17 Dose: 320 mg - Objective Vital Signs: Vital Signs Temperature 99 F 02/15/19 01:00 Pulse Rate 115 H 02/15/19 01:00 Respiratory Rate 20 02/15/19 01:00 Blood Pressure 121/69 02/15/19 01:00 O2 Sat by Pulse Oximetry (%) 95 02/14/19 21:00 Constitutional: Yes: Anxious Eyes: Yes: WNL HENT: Yes: WNL Neck: Yes: Decreased ROM Cardiovascular: Yes: WNL Respiratory: Yes: WNL Gastrointestinal: Yes: Soft, Abdomen, Obese ...Rectal Exam: Yes: Deferred Genitourinary: No: Anuria Breast(s): Yes: WNL Musculoskeletal: Yes: Back Pain, Joint Stiffness, Muscle Pain, Muscle Weakness Extremities: Yes: Cool Edema: No Peripheral Pulses WNL: Yes Integumentary: Yes: Incision Wound/Incision: Yes: Other Neurological: Yes: Alert, Oriented, Weakness Psychiatric: Yes: Alert, Oriented, Other (anxiety) Problem List - Problems (1) Shoulder pain Assessment/Plan: still c/o weakness in left shoulder (pt says it is new, occurring since cervical spine surgery a few days ago Code(s): M25.519 - PAIN IN UNSPECIFIED SHOULDER (2) Cervical post-laminectomy syndrome Assessment/Plan: f/u with neurosurgeon Code(s): M96.1 - POSTLAMINECTOMY SYNDROME, NOT ELSEWHERE CLASSIFIED (3) Hypertension Assessment/Plan: On valsartan and amlodipine. F/u BP and HR. Pain management. Code(s): I10 - ESSENTIAL (PRIMARY) HYPERTENSION Qualifiers: Hypertension type: essential hypertension Qualified Code(s): I10 - Essential (primary) hypertension (4) Sinus tachycardia Assessment/Plan: Multiple eitologies, including pain, anxiety, dehydration, CHF, fever, anemia. CTA chest: no PE. TSH low: f/u TFTs Encourage fluids. Low grade fevers; f/u mckeon. Antipyretics. On Levaquin; now also on Vancomycin. Code(s): R00.0 - TACHYCARDIA, UNSPECIFIED (5) Fever Assessment/Plan: Leukocytosis; pulmonary infiltrates; sinus tachycardia. On Levaquin. Code(s): R50.9 - FEVER, UNSPECIFIED (6) Iron deficiency anemia Code(s): D50.9 - IRON DEFICIENCY ANEMIA, UNSPECIFIED (7) Sepsis Assessment/Plan: On Levaquin and Vancomycin. Encourage fluid intake. Code(s): A41.9 - SEPSIS, UNSPECIFIED ORGANISM
[2019-02-15 06:38] LABS: BASO % 0.7 % (0-2.0); HEMATOCRIT 31.6 % (32.4-45.2); HEMOGLOBIN 10.2 GM/dL (10.7-15.3); LYMPH % 26.6 % (8-40); MCH 29.3 pg (25.7-33.7); MCHC 32.4 g/dl (32.0-36.0); MEAN CELL VOLUME 90.5 fl (80-96); MONO % 7.9 % (3.8-10.2); NEUT % 61.8 % (42.8-82.8); PLATELET COUNT 314 K/MM3 (134-434); RBC 3.49 M/mm3 (3.60-5.2); RDW 14.2 % (11.6-15.6); WHITE BLOOD COUNT 12.3 K/mm3 (4.0-10.0)
[2019-02-15 07:17] LABS: ALBUMIN 2.8 g/dl (3.4-5.0); BILIRUBIN,TOTAL 0.5 mg/dL (0.2-1); CALCIUM 8.2 mg/dL (8.5-10.1); CREATININE 1.1 mg/dL (0.55-1.3); POTASSIUM 4.4 mmol/L (3.5-5.1); TOT PROT 6.9 g/dl (6.4-8.2)
--- NOTE | 2019-02-15 09:43 | PN ---
Progress Note (short form) - Note Progress Note: 53yo F s/p C3-C7 posterior fusion, seen and examined at bedside. Pt continues to complain of Left shoulder pain, describing it as muscle spasms. Pt does have good movement in the shoulder as well. Pt states that she was having a lot of pain in her shoulder with walking and is reluctant to get out of bed. Pt denies any fever, chills, n/v. No hand weakness. Last Vital Signs Temp Pulse Resp BP Pulse Ox 97.5 F L 120 H 20 136/75 95 02/15/19 05:00 02/15/19 05:00 02/15/19 08:32 02/15/19 05:00 02/15/19 08:32 CBC, BMP 02/15/19 05:30 02/15/19 05:30 PE: Gen: A&O X3 Resp: breathing comfortably Neck: incision clean with no erythema or discharge. Ext: no weakness or numbness Problem List - Problems (1) Cervical post-laminectomy syndrome Assessment/Plan: Plan -explained to pt that it is important that she get out of bed and move around. -pt wbc is improving and she was afebrile over weekend, tachycardia is improving. -will change from flexeril to valium for muscle spasms. -pt is cleared from neurosurgery stand point for discharge, will defer to medicine for medical clearance for tachycardia. -pt should follow up with Dr. Jurado, in 1 week for outpatient follow up. Code(s): M96.1 - POSTLAMINECTOMY SYNDROME, NOT ELSEWHERE CLASSIFIED
--- NOTE | 2019-02-15 09:59 | PN ---
Progress Note, Physician History of Present Illness: patient still continuing of left shoulder pain shooting pain neck ok in hard collar - Current Medication List Current Medications: Active Medications Acetaminophen (Tylenol -) 325 mg PO Q6H PRN PRN Reason: PAIN LEVEL 4-7 Last Admin: 02/14/19 14:13 Dose: 325 mg Acetaminophen (Tylenol -) 650 mg PO Q6H PRN PRN Reason: PAIN LEVEL 8-10 Last Admin: 02/14/19 09:17 Dose: 650 mg Acetaminophen (Tylenol -) 650 mg PO Q4H PRN PRN Reason: PAIN LEVEL 1-4, WILLIAM, FEVER Amlodipine Besylate (Norvasc -) 5 mg PO DAILY [facility] Last Admin: 02/14/19 09:18 Dose: 5 mg Aspirin (Asa -) 81 mg PO DAILY [facility] Last Admin: 02/14/19 09:18 Dose: 81 mg Diazepam (Valium -) 5 mg PO Q8H [facility] Diphenhydramine HCl (Benadryl -) 25 mg PO Q6H PRN PRN Reason: FOR ITCHING Docusate Sodium (Colace -) 100 mg PO TID [facility] Last Admin: 02/15/19 05:46 Dose: 100 mg Ferrous Sulfate (Feosol -) 325 mg PO DAILY@0800 [facility] Last Admin: 02/14/19 09:18 Dose: 325 mg Folic Acid (Folic Acid -) 1 mg PO DAILY [facility] Last Admin: 02/14/19 09:18 Dose: 1 mg Gabapentin (Neurontin -) 300 mg PO TID [facility] Last Admin: 02/15/19 05:46 Dose: 300 mg Heparin Sodium (Porcine) (Heparin -) 5,000 unit SQ TID [facility] Last Admin: 02/15/19 05:46 Dose: 5,000 unit Vancomycin HCl (Vancomycin (Pre-Docked)) 1,000 mg in 250 mls @ 166.667 mls/hr IVPB Q12H [facility]; Protocol Last Admin: 02/15/19 00:59 Dose: 166.667 mls/hr Levofloxacin (Levaquin -) 500 mg PO DAILY@0600 [facility] Last Admin: 02/15/19 05:46 Dose: 500 mg Oxycodone HCl (Roxicodone -) 5 mg PO Q6H PRN PRN Reason: PAIN LEVEL 4-7 Last Admin: 02/14/19 14:14 Dose: 5 mg Oxycodone HCl (Roxicodone -) 10 mg PO Q6H PRN PRN Reason: PAIN LEVEL 8-10 Last Admin: 02/14/19 23:53 Dose: 10 mg Valsartan (Diovan -) 320 mg PO DAILY [facility] Last Admin: 02/14/19 09:17 Dose: 320 mg - Objective Vital Signs: Vital Signs Temperature 97.5 F L 02/15/19 05:00 Pulse Rate 120 H 02/15/19 05:00 Respiratory Rate 20 02/15/19 08:32 Blood Pressure 136/75 02/15/19 05:00 O2 Sat by Pulse Oximetry (%) 95 02/15/19 08:32 Constitutional: Yes: No Distress, Calm, Obese HENT: Yes: Other (in cervical collar) Cardiovascular: Yes: Regular Rate and Rhythm Respiratory: Yes: Regular, CTA Bilaterally Gastrointestinal: Yes: Normal Bowel Sounds, Soft Musculoskeletal: Yes: WNL Extremities: Yes: Other Neurological: Yes: Alert, Oriented Psychiatric: Yes: Alert, Oriented Labs: CBC, BMP 02/15/19 05:30 02/15/19 05:30 Assessment/Plan Problem List - Problems (1) Cervical post-laminectomy syndrome Code(s): M96.1 - POSTLAMINECTOMY SYNDROME, NOT ELSEWHERE CLASSIFIED (2) Arm pain Code(s): M79.603 - PAIN IN ARM, UNSPECIFIED (3) Leukocytosis Code(s): D72.829 - ELEVATED WHITE BLOOD CELL COUNT, UNSPECIFIED (4) Tachycardia Code(s): R00.0 - TACHYCARDIA, UNSPECIFIED (5) Anemia Code(s): D64.9 - ANEMIA, UNSPECIFIED (6) HTN (hypertension) Code(s): I10 - ESSENTIAL (PRIMARY) HYPERTENSION (7) GERD (gastroesophageal reflux disease) Code(s): K21.9 - GASTRO-ESOPHAGEAL REFLUX DISEASE WITHOUT ESOPHAGITIS plan continue current mgmt will see temp curve suggest to get a xray of the shoulder if patient stable and no fever will deescalate molly
--- NOTE | 2019-02-15 10:00 | EKG ---
Test Reason : Blood Pressure : / mmHG Vent. Rate : 110 BPM Atrial Rate : 110 BPM P-R Int : 140 ms QRS Dur : 086 ms QT Int : 330 ms P-R-T Axes : 034 -09 023 degrees QTc Int : 446 ms SINUS TACHYCARDIA OTHERWISE NORMAL ECG WHEN COMPARED WITH ECG OF 12-FEB-2019 08:55, NO SIGNIFICANT CHANGE WAS FOUND Confirmed by NESTOR CONTEH MD ([id number]) on 02/15/2019 9:59:53 AM Referred By: ALANNAH MUHAMMAD DR Confirmed By:NESTOR CONTEH MD
--- NOTE | 2019-02-15 11:18 | PN ---
Progress Note (short form) - Note Progress Note: Came to see pt, she is at radiology. Will f/u and make recommendations when she is available for evaluation.
--- NOTE | 2019-02-15 11:49 | ECHO ---
Name: TATYANA GARZA Exam:Adult Echocardiogram Study Date: 02/15/2019 10:56 AM Age: 53 yrs Reason For Study: A-Fib Height: 66 in Weight: 213 lb BSA: 2.1 m2 MMode/2D Measurements & Calculations IVSd: 1.2 cm Ao root diam: 2.7 cm LVIDd: 3.9 cm LA dimension: 2.8 cm LVIDs: 2.6 cm LVPWd: 0.94 cm EDV(Teich): 66.0 ml LVOT diam: 2.0 cm ESV(Teich): 24.1 ml LAV (MOD-bp): 29.9 ml Doppler Measurements & Calculations MV E max jamari: 71.8 cm/sec Ao V2 max: 130.3 cm/sec MV A max jamari: 105.3 cm/sec Ao max P.8 mmHg MV E/A: 0.68 MV dec time: 0.06 sec EILEEN(V,D): 2.6 cm2 LV V1 max P.8 mmHg PA V2 max: 134.4 cm/sec LV V1 max: 110.1 cm/sec PA max P.2 mmHg Med Peak E' Jamari: 11.2 cm/sec PI Vmax: 127.6 cm/sec Med E/e': 6.4 Lat Peak E' Jamari: 11.4 cm/sec Lat E/e': 6.3 Procedure A complete two-dimensional transthoracic echocardiogram was performed (2D, M-mode, Doppler and color flow Doppler). Technically limited study. Left Ventricle The left ventricle is normal in size. There is mild concentric left ventricular hypertrophy. Left tutu tricular systolic function is normal. Ejection Fraction = 60-65%. No regional wall motion abnormalities noted. Right Ventricle The right ventricle is normal size. The right ventricular systolic function is normal. Atria The left atrial size is normal. Right atrial size is normal. Mitral Valve The mitral valve is normal in structure and function. There is no mitral regurgitation noted. Tricuspid Valve The tricuspid valve is normal in structure and function. No tricuspid regurgitation. Aortic Valve The aortic valve is normal in structure and function. No aortic regurgitation is present. Pulmonic Valve The pulmonic valve is not well visualized. Great Vessels The aortic root is normal size. Pericardium/Pleura There is no pericardial effusion. Interpretation Summary Technically limited study The left ventricle is normal in size. There is mild concentric left ventricular hypertrophy. Left ventricular systolic function is normal. No regional wall motion abnormalities noted. Ejection Fraction = 60-65%. The right ventricular systolic function is normal. The left atrial size is normal. Right atrial size is normal No significant valvular regurgitations are seen Mauri Henderson MD 02/15/2019 11:49 AM
[2019-02-15] MEDS: diazePAM 5 MG TABLET PO SCH ×2 (11:52→16:37)
[2019-02-15] MEDS: FERROUS SO4 325 MG TABLET (FP) PO SCH (11:52)
[2019-02-15] MEDS: VALSARTAN 160 MG TABLET (UD) PO SCH (11:52)
[2019-02-15] MEDS: amLODIPine BESYLATE 5 MG TABLET (FP) PO SCH (11:52)
[2019-02-15] MEDS: ASPIRIN 81 MG CHEWABLE TABLETS PO SCH (11:52)
[2019-02-15] MEDS: FOLIC ACID 1 MG TABLET (FP) PO SCH (11:53)
--- NOTE | 2019-02-15 15:05 | PN ---
Progress Note, Physician History of Present Illness: 53yo black woman with PMHx HTN, obesity, hyperglycemia, now s/p C3-C7 posterior fusion, POD 1. Neck pain was initially controlled, but she was very concerned that she had continued left shoulder weakness, and later felt pain at the surgical site. Pt denies previous issues with her Left arm. Pt denies numbness or weakness in the left hand. No fever, chills, n/v, chest pain. Pt was noted to be tachycardic post-operatively while in pain. - Current Medication List Current Medications: Active Medications Acetaminophen (Tylenol -) 325 mg PO Q6H PRN PRN Reason: PAIN LEVEL 4-7 Last Admin: 02/14/19 14:13 Dose: 325 mg Acetaminophen (Tylenol -) 650 mg PO Q6H PRN PRN Reason: PAIN LEVEL 8-10 Last Admin: 02/14/19 09:17 Dose: 650 mg Acetaminophen (Tylenol -) 650 mg PO Q4H PRN PRN Reason: PAIN LEVEL 1-4, WILLIAM, FEVER Amlodipine Besylate (Norvasc -) 5 mg PO DAILY [facility] Last Admin: 02/15/19 11:52 Dose: 5 mg Aspirin (Asa -) 81 mg PO DAILY [facility] Last Admin: 02/15/19 11:52 Dose: 81 mg Diazepam (Valium -) 5 mg PO Q8H [facility] Last Admin: 02/15/19 11:52 Dose: 5 mg Diphenhydramine HCl (Benadryl -) 25 mg PO Q6H PRN PRN Reason: FOR ITCHING Docusate Sodium (Colace -) 100 mg PO TID [facility] Last Admin: 02/15/19 05:46 Dose: 100 mg Ferrous Sulfate (Feosol -) 325 mg PO DAILY@0800 [facility] Last Admin: 02/15/19 11:52 Dose: 325 mg Folic Acid (Folic Acid -) 1 mg PO DAILY [facility] Last Admin: 02/15/19 11:53 Dose: 1 mg Gabapentin (Neurontin -) 300 mg PO TID [facility] Last Admin: 02/15/19 05:46 Dose: 300 mg Heparin Sodium (Porcine) (Heparin -) 5,000 unit SQ TID [facility] Last Admin: 02/15/19 05:46 Dose: 5,000 unit Vancomycin HCl (Vancomycin (Pre-Docked)) 1,000 mg in 250 mls @ 166.667 mls/hr IVPB Q12H [facility]; Protocol Last Admin: 02/15/19 00:59 Dose: 166.667 mls/hr Levofloxacin (Levaquin -) 500 mg PO DAILY@0600 [facility] Last Admin: 02/15/19 05:46 Dose: 500 mg Oxycodone HCl (Roxicodone -) 5 mg PO Q6H PRN PRN Reason: PAIN LEVEL 4-7 Last Admin: 02/14/19 14:14 Dose: 5 mg Oxycodone HCl (Roxicodone -) 10 mg PO Q6H PRN PRN Reason: PAIN LEVEL 8-10 Last Admin: 02/14/19 23:53 Dose: 10 mg Valsartan (Diovan -) 320 mg PO DAILY [facility] Last Admin: 02/15/19 11:52 Dose: 320 mg - Objective Vital Signs: Vital Signs Temperature 98.4 F 02/15/19 09:00 Pulse Rate 121 H 02/15/19 09:00 Respiratory Rate 20 02/15/19 09:00 Blood Pressure 133/74 02/15/19 09:00 O2 Sat by Pulse Oximetry (%) 95 02/15/19 08:32 Eyes: Yes: WNL, Conjunctiva Clear, EOM Intact HENT: Yes: WNL, Atraumatic, Normocephalic Neck: Yes: WNL, Supple, Trachea Midline Cardiovascular: Yes: WNL, Regular Rate and Rhythm Respiratory: Yes: WNL, Regular, CTA Bilaterally Gastrointestinal: Yes: WNL, Normal Bowel Sounds Genitourinary: Yes: WNL Musculoskeletal: Yes: WNL Extremities: Yes: WNL Edema: No Integumentary: Yes: WNL ...Motor Strength: WNL Psychiatric: Yes: WNL Labs: CBC, BMP 02/15/19 05:30 02/15/19 05:30 Assessment/Plan Problems (1) Shoulder pain Assessment/Plan: still c/o weakness in left shoulder (pt says it is new, occurring since cervical spine surgery a few days ago Code(s): M25.519 - PAIN IN UNSPECIFIED SHOULDER (2) Cervical post-laminectomy syndrome Assessment/Plan: f/u with neurosurgeon Code(s): M96.1 - POSTLAMINECTOMY SYNDROME, NOT ELSEWHERE CLASSIFIED (3) Hypertension Assessment/Plan: On valsartan and amlodipine. F/u BP and HR. Pain management. Code(s): I10 - ESSENTIAL (PRIMARY) HYPERTENSION Qualifiers: Hypertension type: essential hypertension Qualified Code(s): I10 - Essential (primary) hypertension (4) Sinus tachycardia Assessment/Plan: Multiple eitologies, including pain, anxiety, dehydration, CHF, fever, anemia. CTA chest: no PE. TSH low: f/u TFTs Encourage fluids. Low grade fevers; f/u mckeon. Antipyretics. On Levaquin; now also on Vancomycin. Code(s): R00.0 - TACHYCARDIA, UNSPECIFIED (5) Fever Assessment/Plan: Leukocytosis; pulmonary infiltrates; sinus tachycardia. On Levaquin. Code(s): R50.9 - FEVER, UNSPECIFIED (6) Iron deficiency anemia Code(s): D50.9 - IRON DEFICIENCY ANEMIA, UNSPECIFIED (7) Sepsis Assessment/Plan: On Levaquin and Vancomycin. Encourage fluid intake. Code(s): A41.9 - SEPSIS, UNSPECIFIED ORGANISM
--- NOTE | 2019-02-15 22:58 | PN ---
Progress Note, Physician - Current Medication List Current Medications: Active Medications Acetaminophen (Tylenol -) 325 mg PO Q6H PRN PRN Reason: PAIN LEVEL 4-7 Last Admin: 02/14/19 14:13 Dose: 325 mg Acetaminophen (Tylenol -) 650 mg PO Q6H PRN PRN Reason: PAIN LEVEL 8-10 Last Admin: 02/14/19 09:17 Dose: 650 mg Acetaminophen (Tylenol -) 650 mg PO Q4H PRN PRN Reason: PAIN LEVEL 1-4, WILLIAM, FEVER Amlodipine Besylate (Norvasc -) 5 mg PO DAILY [facility] Last Admin: 02/15/19 11:52 Dose: 5 mg Aspirin (Asa -) 81 mg PO DAILY [facility] Last Admin: 02/15/19 11:52 Dose: 81 mg Diazepam (Valium -) 5 mg PO Q8H [facility] Last Admin: 02/15/19 16:37 Dose: 5 mg Diphenhydramine HCl (Benadryl -) 25 mg PO Q6H PRN PRN Reason: FOR ITCHING Docusate Sodium (Colace -) 100 mg PO TID [facility] Last Admin: 02/15/19 21:22 Dose: 100 mg Ferrous Sulfate (Feosol -) 325 mg PO DAILY@0800 [facility] Last Admin: 02/15/19 11:52 Dose: 325 mg Folic Acid (Folic Acid -) 1 mg PO DAILY [facility] Last Admin: 02/15/19 11:53 Dose: 1 mg Gabapentin (Neurontin -) 300 mg PO TID [facility] Last Admin: 02/15/19 21:22 Dose: 300 mg Heparin Sodium (Porcine) (Heparin -) 5,000 unit SQ TID [facility] Last Admin: 02/15/19 21:22 Dose: 5,000 unit Vancomycin HCl (Vancomycin (Pre-Docked)) 1,000 mg in 250 mls @ 166.667 mls/hr IVPB Q12H [facility]; Protocol Last Admin: 02/15/19 15:27 Dose: 166.667 mls/hr Levofloxacin (Levaquin -) 500 mg PO DAILY@0600 [facility] Last Admin: 02/15/19 05:46 Dose: 500 mg Oxycodone HCl (Roxicodone -) 5 mg PO Q6H PRN PRN Reason: PAIN LEVEL 4-7 Last Admin: 02/14/19 14:14 Dose: 5 mg Oxycodone HCl (Roxicodone -) 10 mg PO Q6H PRN PRN Reason: PAIN LEVEL 8-10 Last Admin: 02/14/19 23:53 Dose: 10 mg Valsartan (Diovan -) 320 mg PO DAILY [facility] Last Admin: 02/15/19 11:52 Dose: 320 mg - Objective Vital Signs: Vital Signs Temperature 100.0 F H 02/15/19 22:00 Pulse Rate 113 H 02/15/19 22:00 Respiratory Rate 18 02/15/19 22:00 Blood Pressure 149/89 02/15/19 22:00 O2 Sat by Pulse Oximetry (%) 95 02/15/19 21:00 Labs: CBC, BMP 02/15/19 05:30 02/15/19 05:30 Problem List - Problems (1) Cervical post-laminectomy syndrome Code(s): M96.1 - POSTLAMINECTOMY SYNDROME, NOT ELSEWHERE CLASSIFIED (2) Arm pain Code(s): M79.603 - PAIN IN ARM, UNSPECIFIED (3) Leukocytosis Code(s): D72.829 - ELEVATED WHITE BLOOD CELL COUNT, UNSPECIFIED (4) Tachycardia Code(s): R00.0 - TACHYCARDIA, UNSPECIFIED (5) Anemia Code(s): D64.9 - ANEMIA, UNSPECIFIED (6) HTN (hypertension) Code(s): I10 - ESSENTIAL (PRIMARY) HYPERTENSION (7) GERD (gastroesophageal reflux disease) Code(s): K21.9 - GASTRO-ESOPHAGEAL REFLUX DISEASE WITHOUT ESOPHAGITIS
[2019-02-16] MEDS: diazePAM 5 MG TABLET PO SCH ×3 (00:02→15:54)
[2019-02-16] MEDS: VANCOMYCIN 1 GRAM (PRE-DOCKED) 1,000 MG/250 ML BAG IVPB SCH (01:00)
[2019-02-16] MEDS: oxyCODONE HCL 5 MG TABLET PO PRN (02:56)
[2019-02-16] MEDS: HEPARIN NA (PORCINE) 5,000 UNITS/ML 1ML VIAL SQ SCH ×3 (05:46→21:53)
[2019-02-16] MEDS: GABAPENTIN 300 MG CAPSULE (FP) PO SCH ×3 (05:46→21:53)
[2019-02-16] MEDS: DOCUSATE SODIUM 100 MG CAPSULE (FP) PO SCH ×3 (05:46→21:53)
[2019-02-16 06:29] LABS: BASO % 0.7 % (0-2.0); HEMATOCRIT 30.1 % (32.4-45.2); HEMOGLOBIN 10.1 GM/dL (10.7-15.3); LYMPH % 24.8 % (8-40); MCH 29.8 pg (25.7-33.7); MCHC 33.5 g/dl (32.0-36.0); MEAN PLT VOLUME 7.8 fl (7.5-11.1); NEUT % 62.5 % (42.8-82.8); PLATELET COUNT 312 K/MM3 (134-434); RBC 3.39 M/mm3 (3.60-5.2); WHITE BLOOD COUNT 11.8 K/mm3 (4.0-10.0)
[2019-02-16 06:51] LABS: ALBUMIN 2.8 g/dl (3.4-5.0); BILIRUBIN,TOTAL 0.4 mg/dL (0.2-1); CALCIUM 8.4 mg/dL (8.5-10.1); POTASSIUM 4.3 mmol/L (3.5-5.1); TOT PROT 6.7 g/dl (6.4-8.2)
[2019-02-16] MEDS: VALSARTAN 160 MG TABLET (UD) PO SCH (09:01)
[2019-02-16] MEDS: amLODIPine BESYLATE 5 MG TABLET (FP) PO SCH (09:01)
[2019-02-16] MEDS: FOLIC ACID 1 MG TABLET (FP) PO SCH (09:01)
[2019-02-16] MEDS: FERROUS SO4 325 MG TABLET (FP) PO SCH (09:01)
[2019-02-16] MEDS: ASPIRIN 81 MG CHEWABLE TABLETS PO SCH (09:01)
--- NOTE | 2019-02-16 09:05 | PN ---
Progress Note, Physician History of Present Illness: patient stable no new issues shoulder pain still spiking low grade fevers - Current Medication List Current Medications: Active Medications Acetaminophen (Tylenol -) 325 mg PO Q6H PRN PRN Reason: PAIN LEVEL 4-7 Last Admin: 02/14/19 14:13 Dose: 325 mg Acetaminophen (Tylenol -) 650 mg PO Q6H PRN PRN Reason: PAIN LEVEL 8-10 Last Admin: 02/14/19 09:17 Dose: 650 mg Acetaminophen (Tylenol -) 650 mg PO Q4H PRN PRN Reason: PAIN LEVEL 1-4, WILLIAM, FEVER Amlodipine Besylate (Norvasc -) 5 mg PO DAILY [facility] Last Admin: 02/15/19 11:52 Dose: 5 mg Aspirin (Asa -) 81 mg PO DAILY [facility] Last Admin: 02/15/19 11:52 Dose: 81 mg Diazepam (Valium -) 5 mg PO Q8H [facility] Last Admin: 02/16/19 00:02 Dose: 5 mg Diphenhydramine HCl (Benadryl -) 25 mg PO Q6H PRN PRN Reason: FOR ITCHING Docusate Sodium (Colace -) 100 mg PO TID [facility] Last Admin: 02/16/19 05:46 Dose: 100 mg Ferrous Sulfate (Feosol -) 325 mg PO DAILY@0800 [facility] Last Admin: 02/15/19 11:52 Dose: 325 mg Folic Acid (Folic Acid -) 1 mg PO DAILY [facility] Last Admin: 02/15/19 11:53 Dose: 1 mg Gabapentin (Neurontin -) 300 mg PO TID [facility] Last Admin: 02/16/19 05:46 Dose: 300 mg Heparin Sodium (Porcine) (Heparin -) 5,000 unit SQ TID [facility] Last Admin: 02/16/19 05:46 Dose: 5,000 unit Vancomycin HCl (Vancomycin (Pre-Docked)) 1,000 mg in 250 mls @ 166.667 mls/hr IVPB Q12H [facility]; Protocol Last Admin: 02/16/19 01:00 Dose: 166.667 mls/hr Levofloxacin (Levaquin -) 500 mg PO DAILY@0600 [facility] Last Admin: 02/16/19 05:46 Dose: 500 mg Oxycodone HCl (Roxicodone -) 5 mg PO Q6H PRN PRN Reason: PAIN LEVEL 4-7 Last Admin: 02/16/19 02:56 Dose: 5 mg Valsartan (Diovan -) 320 mg PO DAILY [facility] Last Admin: 02/15/19 11:52 Dose: 320 mg - Objective Vital Signs: Vital Signs Temperature 99.0 F 02/16/19 06:54 Pulse Rate 115 H 02/16/19 06:54 Respiratory Rate 20 02/16/19 06:54 Blood Pressure 139/81 02/16/19 06:54 O2 Sat by Pulse Oximetry (%) 95 02/15/19 21:00 Constitutional: Yes: Calm, Mild Distress Neck: Yes: Other (in hard collar) Cardiovascular: Yes: Regular Rate and Rhythm Respiratory: Yes: Regular, CTA Bilaterally Musculoskeletal: Yes: WNL Extremities: Yes: WNL Neurological: Yes: Alert, Oriented Psychiatric: Yes: Alert, Oriented Labs: CBC, BMP 02/16/19 05:20 02/16/19 05:20 Assessment/Plan Problem List - Problems (1) Cervical post-laminectomy syndrome Code(s): M96.1 - POSTLAMINECTOMY SYNDROME, NOT ELSEWHERE CLASSIFIED (2) Arm pain Code(s): M79.603 - PAIN IN ARM, UNSPECIFIED (3) Leukocytosis Code(s): D72.829 - ELEVATED WHITE BLOOD CELL COUNT, UNSPECIFIED (4) Tachycardia Code(s): R00.0 - TACHYCARDIA, UNSPECIFIED (5) Anemia Code(s): D64.9 - ANEMIA, UNSPECIFIED (6) HTN (hypertension) Code(s): I10 - ESSENTIAL (PRIMARY) HYPERTENSION (7) GERD (gastroesophageal reflux disease) Code(s): K21.9 - GASTRO-ESOPHAGEAL REFLUX DISEASE WITHOUT ESOPHAGITIS plan will see if patient spikes fever if she does will start he pedro pablo gerard watch the fever curve rest as per the team
--- NOTE | 2019-02-16 09:44 | PN ---
Progress Note (short form) - Note Progress Note: Pt seen and examined. I was asked to see the patient for left shoulder pain. She is a 53 year old right hand dominant female who underwent a cervical decompression surgery with instrumentation in October,, after which she did well, with significant relief of her symptoms. She then underwent repeat cervical decompression surgery 1 week ago. After speaking with her neurosurgeon , who described extensive dissection was necessary to perform the decompression adequately, she currently has a transient deltoid palsy and cervical parasthesias, both of which are expected to be transient, but will likely will take months to resolve. She complains of neurologic like neuropathy in the left shoulder, neck, and right shoulder. She complains of "muscle spasms" in the neck and left shoulder. PE Pt is in a cervical hard collar, I did not remove it. Left elbow, forearm, wrist, fingers all NVI, with nl sensation, good ROM, good strength. 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 Left deltoid function is dramatically reduced. She has difficulty raising the arm in any plane, including forward flexion and abduction. Resistance strength of the left shoulder is also very limited. Imp Post cervical laminectomy syndrome, expected to be transient, will take months to resolve. Rec Time to resolve Rec P.T., she may need to be transferred to a short term rehab I spoke with her neurosurgeon. She should follow up with him 1 week after discharge
--- NOTE | 2019-02-16 12:09 | PN ---
Progress Note, Physician Chief Complaint: Pt A&Ox3; still with numbness of left arm, weakness and pain in the arm, especially when she stands. History of Present Illness: 53yo black woman with PMHx HTN, obesity, hyperglycemia, now s/p C3-C7 posterior fusion, POD 1. Neck pain was initially controlled, but she was very concerned that she had continued left shoulder weakness, and later felt pain at the surgical site. Pt denies previous issues with her Left arm. Pt denies numbness or weakness in the left hand. No fever, chills, n/v, chest pain. Pt was noted to be tachycardic post-operatively while in pain. - Current Medication List Current Medications: Active Medications Acetaminophen (Tylenol -) 325 mg PO Q6H PRN PRN Reason: PAIN LEVEL 4-7 Last Admin: 02/14/19 14:13 Dose: 325 mg Acetaminophen (Tylenol -) 650 mg PO Q6H PRN PRN Reason: PAIN LEVEL 8-10 Last Admin: 02/14/19 09:17 Dose: 650 mg Acetaminophen (Tylenol -) 650 mg PO Q4H PRN PRN Reason: PAIN LEVEL 1-4, WILLIAM, FEVER Amlodipine Besylate (Norvasc -) 5 mg PO DAILY [facility] Last Admin: 02/16/19 09:01 Dose: 5 mg Aspirin (Asa -) 81 mg PO DAILY [facility] Last Admin: 02/16/19 09:01 Dose: 81 mg Diazepam (Valium -) 5 mg PO Q8H [facility] Last Admin: 02/16/19 09:01 Dose: 5 mg Diphenhydramine HCl (Benadryl -) 25 mg PO Q6H PRN PRN Reason: FOR ITCHING Docusate Sodium (Colace -) 100 mg PO TID [facility] Last Admin: 02/16/19 05:46 Dose: 100 mg Ferrous Sulfate (Feosol -) 325 mg PO DAILY@0800 [facility] Last Admin: 02/16/19 09:01 Dose: 325 mg Folic Acid (Folic Acid -) 1 mg PO DAILY [facility] Last Admin: 02/16/19 09:01 Dose: 1 mg Gabapentin (Neurontin -) 300 mg PO TID [facility] Last Admin: 02/16/19 05:46 Dose: 300 mg Heparin Sodium (Porcine) (Heparin -) 5,000 unit SQ TID [facility] Last Admin: 02/16/19 05:46 Dose: 5,000 unit Oxycodone HCl (Roxicodone -) 5 mg PO Q6H PRN PRN Reason: PAIN LEVEL 4-7 Last Admin: 02/16/19 02:56 Dose: 5 mg Valsartan (Diovan -) 320 mg PO DAILY [facility] Last Admin: 02/16/19 09:01 Dose: 320 mg - Objective Vital Signs: Vital Signs Temperature 98.1 F 02/16/19 10:00 Pulse Rate 117 H 02/16/19 10:00 Respiratory Rate 20 02/16/19 10:00 Blood Pressure 130/67 02/16/19 10:00 O2 Sat by Pulse Oximetry (%) 95 02/16/19 09:00 Constitutional: Yes: Anxious, Obese Eyes: Yes: WNL HENT: Yes: WNL Neck: Yes: Decreased ROM (neck brace post surgery) Cardiovascular: Yes: Tachycardia, S1, S2, S4 Respiratory: Yes: Diminished Gastrointestinal: Yes: Soft, Abdomen, Obese ...Rectal Exam: Yes: Deferred Genitourinary: No: Anuria Breast(s): Yes: WNL Musculoskeletal: Yes: Joint Stiffness, Muscle Pain, Muscle Weakness Extremities: Yes: Cool Edema: No Peripheral Pulses WNL: Yes Integumentary: Yes: Incision Wound/Incision: Yes: Clean/Dry Neurological: Yes: Alert, Oriented, Weakness Psychiatric: Yes: Alert, Oriented, Other (anxiety) Labs: CBC, BMP 02/16/19 05:20 02/16/19 05:20 Abnormal Lab Results 02/16/19 02/16/19 05:20 05:20 WBC 11.8 H RBC 3.39 L Hgb 10.1 L Hct 30.1 L Sodium 132 L Anion Gap 4 L Calcium 8.4 L Albumin 2.8 L Abnormal Lab Results 02/16/19 02/16/19 05:20 05:20 WBC 11.8 H RBC 3.39 L Hgb 10.1 L Hct 30.1 L Sodium 132 L Anion Gap 4 L Calcium 8.4 L Albumin 2.8 L - ....Imaging Cat Scan: Image Reviewed EKG: Image Reviewed (sinus tachycardia; otherwise, normal study) Problem List - Problems (1) Shoulder pain Assessment/Plan: still c/o weakness in left shoulder (pt says it is new, occurring since cervical spine surgery a few days ago). Left Shoulder images: arthropathy. Code(s): M25.519 - PAIN IN UNSPECIFIED SHOULDER (2) Cervical post-laminectomy syndrome Assessment/Plan: f/u with neurosurgeon Code(s): M96.1 - POSTLAMINECTOMY SYNDROME, NOT ELSEWHERE CLASSIFIED (3) Hypertension Assessment/Plan: On valsartan and amlodipine. F/u BP and HR. Pain management. Weight loss and diet modification will be beneficial. Code(s): I10 - ESSENTIAL (PRIMARY) HYPERTENSION Qualifiers: Hypertension type: essential hypertension Qualified Code(s): I10 - Essential (primary) hypertension (4) Sinus tachycardia Assessment/Plan: Multiple eitologies, including pain, anxiety, dehydration, CHF, fever, anemia. CTA chest: no PE. TSH low; free T4 WNL. Encourage fluids. Low grade fevers; f/u workup; Antipyretics. On Levaquin; now also on Vancomycin. Code(s): R00.0 - TACHYCARDIA, UNSPECIFIED (5) Fever Assessment/Plan: Leukocytosis; pulmonary infiltrates; sinus tachycardia. On Levaquin. Antipyretics. Code(s): R50.9 - FEVER, UNSPECIFIED (6) Iron deficiency anemia Code(s): D50.9 - IRON DEFICIENCY ANEMIA, UNSPECIFIED (7) Sepsis Assessment/Plan: On Levaquin and Vancomycin. Encourage fluid intake. Code(s): A41.9 - SEPSIS, UNSPECIFIED ORGANISM
[2019-02-16] MEDS: ACETAMINOPHEN 325 MG TABLET (FP) PO PRN (13:13)
--- NOTE | 2019-02-16 23:25 | CONSULT ---
Consult Consult Specialty:: endocrine Referred by:: dr.rocco blue Reason for Consultation:: abnormal thyroid function testing - History of Present Illness Chief Complaint: shoulder and neck pain History of Present Illness: 53 y/o female w/ PMH significant for HTN, cervical radiculopathy, chronic back pain, OA sp . spinal fusion with C3-C7 laminectomies, foraminotomies, and osteotomies.post up recovery has abnormal thyroid function testing. 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: Peripheral Neuropathy (reportedly from "elevated sugar") Cardio/Vascular: Yes: HTN Pulmonary: No: Asthma ...LMP: 06/11/17 ...LMP Comment: january 2019 ...: No Psych: Yes: Anxiety Musculoskeletal: Yes: Other (Cervical radiculopathy Chronic abck pain) - Past Surgical History Past Surgical History: Yes: Laminectomy Additional Surgical History: cervical spine - Alcohol/Substance Use Hx Alcohol Use: No - Smoking History Smoking history: Never smoked Have you smoked in the past 12 months: No Aproximately how many cigarettes per day: 0 Home Medications - Allergies Allergies/Adverse Reactions: Allergies Allergy/AdvReac Type Severity Reaction Status Date / Time No Known Allergies Allergy Verified 02/09/19 06:32 - Home Medications Home Medications: Ambulatory Orders Olmesartan Medoxomil [Benicar -] 40 mg PO DAILY 08/01/17 Amlodipine Besylate [Norvasc -] 5 mg PO DAILY 07/08/18 Aspirin 81 mg PO DAILY 07/08/18 Docusate Sodium [Colace] 100 mg PO TID #40 capsule 02/12/19 Diazepam [Valium] 5 mg PO Q8H #30 tablet MDD 3 02/16/19 Docusate Sodium [Colace -] 100 mg PO TID capsule 02/16/19 Ferrous Sulfate [Feosol] 325 mg PO DAILY@0800 [facility] 02/16/19 Folic Acid - 1 mg PO DAILY tablet 02/16/19 Gabapentin [Neurontin -] 300 mg PO TID capsule 02/16/19 Heparin - 5,000 unit SQ TID vial 02/16/19 levoFLOXacin [Levaquin -] 500 mg PO DAILY@0600 tablet 02/16/19 oxyCODONE HCL [Roxicodone -] 5 mg PO Q6H PRN #30 tablet MDD 4 02/16/19 Review of Systems - Review of Systems Constitutional: reports: No Symptoms Eyes: reports: No Symptoms HENT: reports: No Symptoms Neck: reports: Decreased ROM, Pain on Movement Cardiovascular: reports: No Symptoms Respiratory: reports: Exercise Intolerance Gastrointestinal: reports: Bloating Genitourinary: reports: No Symptoms Breasts: reports: No Symptoms Reported Musculoskeletal: reports: Joint Pain, Muscle Cramps, Muscle Weakness Integumentary: reports: No Symptoms Neurological: reports: Numbness, Unsteady Gait, Weakness Endocrine: reports: No Symptoms Physical Exam Vital Signs: Vital Signs Temperature 99.1 F 02/16/19 20:00 Pulse Rate 118 H 02/16/19 20:00 Respiratory Rate 20 02/16/19 20:00 Blood Pressure 115/72 02/16/19 20:00 O2 Sat by Pulse Oximetry (%) 95 02/16/19 09:00 Constitutional: Yes: Anxious Eyes: Yes: EOM Intact HENT: Yes: Normocephalic Neck: Yes: Trachea Midline Cardiovascular: Yes: Regular Rate and Rhythm Respiratory: Yes: CTA Bilaterally Gastrointestinal: Yes: Normal Bowel Sounds ...Rectal Exam: Yes: Deferred Renal/: Yes: WNL Musculoskeletal: Yes: Muscle Weakness Extremities: Yes: WNL Edema: No Neurological: Yes: Alert, Oriented Labs: CBC, BMP 02/16/19 05:20 02/16/19 05:20 Problem List - Problems (1) Thyroiditis Code(s): E06.9 - THYROIDITIS, UNSPECIFIED (2) Arm pain Code(s): M79.603 - PAIN IN ARM, UNSPECIFIED (3) Iron deficiency anemia Code(s): D50.9 - IRON DEFICIENCY ANEMIA, UNSPECIFIED (4) Muscle spasm Code(s): M62.838 - OTHER MUSCLE SPASM (5) Post-op pain Code(s): G89.18 - OTHER ACUTE POSTPROCEDURAL PAIN Assessment/Plan Current Active Problems thyroiditis thuy Arm pain (Acute) Fever (Acute) Iron deficiency anemia (Acute) Leukocytosis (Acute) Muscle spasm (Acute) Post-op pain (Acute) Sepsis (Acute) Shoulder pain (Acute) Sinus tachycardia (Acute) Tachycardia (Acute) Abnormal Lab Results 02/16/19 02/16/19 05:20 05:20 WBC 11.8 H RBC 3.39 L Hgb 10.1 L Hct 30.1 L Sodium 132 L Anion Gap 4 L Calcium 8.4 L Albumin 2.8 L Laboratory Results - last 24 hr 02/16/19 02/16/19 05:20 05:20 WBC 11.8 H RBC 3.39 L Hgb 10.1 L Hct 30.1 L MCV 89.0 MCH 29.8 MCHC 33.5 RDW 14.0 Plt Count 312 MPV 7.8 Absolute Neuts (auto) 7.4 Neutrophils % 62.5 Lymphocytes % 24.8 Monocytes % 8.0 Eosinophils % 4.0 Basophils % 0.7 Nucleated RBC % 0 Sodium 132 L Potassium 4.3 Chloride 100 Carbon Dioxide 28 Anion Gap 4 L BUN 13 Creatinine 1.0 Est GFR (CKD-EPI)AfAm 74.49 Est GFR (CKD-EPI)NonAf 64.27 Random Glucose 97 Calcium 8.4 L Total Bilirubin 0.4 AST 16 ALT 16 Alkaline Phosphatase 46 Total Protein 6.7 Albumin 2.8 L Abnormal Lab Results 02/16/19 02/16/19 05:20 05:20 WBC 11.8 H RBC 3.39 L Hgb 10.1 L Hct 30.1 L Sodium 132 L Anion Gap 4 L Calcium 8.4 L Albumin 2.8 L Laboratory Tests 02/12/19 02/13/19 05:30 22:00 TSH 0.23 L Free T4 1.21 plan: outpatient thyroid sonogram for follow up
[2019-02-17] MEDS: diazePAM 5 MG TABLET PO SCH ×2 (00:01→08:52)
[2019-02-17] MEDS ORDERED: MAG HYDROX/AL HYDROX/SIMETH 30 ML UNIT-DOSE CUP PO ONE (00:04)
--- NOTE | 2019-02-17 00:08 | PN ---
Progress Note, Physician History of Present Illness: Pt was seen and examined 02/16/19 however note is being entered now Pt was supposed to be dc'ed to [facility] today - Current Medication List Current Medications: Active Medications Acetaminophen (Tylenol -) 325 mg PO Q6H PRN PRN Reason: PAIN LEVEL 4-7 Last Admin: 02/16/19 13:13 Dose: 325 mg Acetaminophen (Tylenol -) 650 mg PO Q6H PRN PRN Reason: PAIN LEVEL 8-10 Last Admin: 02/14/19 09:17 Dose: 650 mg Acetaminophen (Tylenol -) 650 mg PO Q4H PRN PRN Reason: PAIN LEVEL 1-4, WILLIAM, FEVER Last Admin: 02/16/19 21:53 Dose: 650 mg Al Hydroxide/Mg Hydroxide (Mylanta Oral Suspension -) 30 ml PO ONCE ONE Stop: 02/17/19 00:05 Amlodipine Besylate (Norvasc -) 5 mg PO DAILY ON LICENSE OF [facility] Last Admin: 02/16/19 09:01 Dose: 5 mg Aspirin (Asa -) 81 mg PO DAILY ON LICENSE OF [facility] Last Admin: 02/16/19 09:01 Dose: 81 mg Diazepam (Valium -) 5 mg PO Q8H ON LICENSE OF [facility] Last Admin: 02/17/19 00:01 Dose: 5 mg Diphenhydramine HCl (Benadryl -) 25 mg PO Q6H PRN PRN Reason: FOR ITCHING Docusate Sodium (Colace -) 100 mg PO TID ON LICENSE OF [facility] Last Admin: 02/16/19 21:53 Dose: 100 mg Ferrous Sulfate (Feosol -) 325 mg PO DAILY@0800 ON LICENSE OF [facility] Last Admin: 02/16/19 09:01 Dose: 325 mg Folic Acid (Folic Acid -) 1 mg PO DAILY ON LICENSE OF [facility] Last Admin: 02/16/19 09:01 Dose: 1 mg Gabapentin (Neurontin -) 300 mg PO TID ON LICENSE OF [facility] Last Admin: 02/16/19 21:53 Dose: 300 mg Heparin Sodium (Porcine) (Heparin -) 5,000 unit SQ TID ON LICENSE OF [facility] Last Admin: 02/16/19 21:53 Dose: 5,000 unit Oxycodone HCl (Roxicodone -) 5 mg PO Q6H PRN PRN Reason: PAIN LEVEL 4-7 Last Admin: 02/16/19 02:56 Dose: 5 mg Valsartan (Diovan -) 320 mg PO DAILY ON LICENSE OF [facility] Last Admin: 02/16/19 09:01 Dose: 320 mg - Objective Vital Signs: Vital Signs Temperature 99.1 F 02/16/19 20:00 Pulse Rate 118 H 02/16/19 20:00 Respiratory Rate 20 02/16/19 21:00 Blood Pressure 115/72 02/16/19 20:00 O2 Sat by Pulse Oximetry (%) 96 02/16/19 21:00 Cardiovascular: Yes: Tachycardia Respiratory: Yes: WNL, Regular, CTA Bilaterally Gastrointestinal: Yes: WNL, Normal Bowel Sounds, Soft Edema: No Labs: CBC, BMP 02/16/19 05:20 02/16/19 05:20 Problem List - Problems (1) Cervical post-laminectomy syndrome Assessment/Plan: S/P spinal fusion w/ lamenctomy of C3-C7 Cont pain management Repeat MRI shows loculated fluid at C2-C3 ?seroma Pt cleared by NSG for DC Code(s): M96.1 - POSTLAMINECTOMY SYNDROME, NOT ELSEWHERE CLASSIFIED (2) Arm pain Assessment/Plan: As per ortho Pt will need PT Code(s): M79.603 - PAIN IN ARM, UNSPECIFIED (3) Leukocytosis Assessment/Plan: BC/urine culture remain negative ?infiltrate on CTA chest Cont po levaquin Code(s): D72.829 - ELEVATED WHITE BLOOD CELL COUNT, UNSPECIFIED (4) Tachycardia Assessment/Plan: Sinusis tachy Could be due to pain Code(s): R00.0 - TACHYCARDIA, UNSPECIFIED (5) Anemia Assessment/Plan: Monitor H/H Cont feso4 Code(s): D64.9 - ANEMIA, UNSPECIFIED (6) HTN (hypertension) Assessment/Plan: BP stable Cont asa/norvasc/diovan Code(s): I10 - ESSENTIAL (PRIMARY) HYPERTENSION (7) GERD (gastroesophageal reflux disease) Assessment/Plan: Started on protonix Code(s): K21.9 - GASTRO-ESOPHAGEAL REFLUX DISEASE WITHOUT ESOPHAGITIS
--- NOTE | 2019-02-17 01:30 | DS ---
"Physical Examination Vital Signs: Vital Signs Temperature 99.1 F 02/16/19 20:00 Pulse Rate 118 H 02/16/19 20:00 Respiratory Rate 20 02/16/19 21:00 Blood Pressure 115/72 02/16/19 20:00 O2 Sat by Pulse Oximetry (%) 96 02/16/19 21:00 Neck: Yes: Other ((+) Cervical collar) Cardiovascular: Yes: Tachycardia Respiratory: Yes: WNL, Regular, CTA Bilaterally Gastrointestinal: Yes: WNL, Normal Bowel Sounds, Soft Edema: No Labs: CBC, BMP 02/16/19 05:20 02/16/19 05:20 Discharge Summary Reason For Visit: CERVICAL STENOSIS Current Active Problems Cervical lamnectomy Fever (Acute) Iron deficiency anemia (Acute) Leukocytosis (Acute) Muscle spasm (Acute) Post-op pain (Acute) Sepsis (Acute) Shoulder pain (Acute) Sinus tachycardia (Acute) Thyroiditis (Acute) Pneumoia Hospital Course: Pt admitted and underwent cervical lamnectomy and tolerated procedure w/out complications. Pt developed leukocytosis and tachycardia and was also followed by cardio/ID consults. Pt subsequently had dopplers of lower extremioty wc were negative for DVT and CTA chest wa negative for PE. Tachycardia was thought to be due to pain. Pt had BC wc were negative and antibxs were stopped by ID except for levaquin wc is to be continued for another 7 days for ?pneumonia on CXR.. Pt was also having shoulder pain and xray wc did not show any acute pathology and was seen by ortho who felt these were muscle spasms and pt would benefit from physical therapy. Pt now stable for discharge to SNF Condition: Good - Instructions Diet, Activity, Other Instructions: Post Operative Instructions Physical Activity Resume your normal everyday activity as tolerated. No heavy lifting or exercise until seen by your surgeon. You may walk unlimited amounts and climb stairs. You may resume driving the car when you feel safe and comfortable behind the wheel and you are no longer wearing your brace. Do not operate a vehicle while taking narcotic medication. Brace If you had neck surgery, wear surgical collar 23 hr/day. Remove to shower only. Wound Care Keep your incision clean, dry and covered at all times. Apply an occlusive dressing (Saran wrap or Tegaderm) when showering to avoid getting your incision wet. Do not submerge incision or apply ointments or creams. The ben will be removed in the office in 10-14 days post-op. Diet There are no dietary restrictions. Eat healthy, high-fiber foods. Drink 6-8 glasses of liquid each day. This will assist in keeping your bowels regular. Pain Management You may take Tylenol or acetaminophen. Any pain prescription medication ordered should be taken as prescribed for moderate to severe pain. Call Dr Interiano for any of the following: Severe pain not relieved by medication Fever of 101 or higher Excessive bleeding or drainage on dressing Inability to urinate Any chest pain or shortness of breath, seek Emergency Care. Call the office to confirm a post-operative appointment for 2-3 weeks post-op Neno Jurado MD [facility] [place] [address] [facility] THERAPEUTIC RECREATION ASSISTANT: This report was requested by: Buddy Nogueira | Reference #: [id number] 01/27/2019 Oxycodone-acetaminophen 10-325 mg / 60 tablets / Donny Ramires M 2 gram sodium diet Folllow up with Dr Carrillo in 2 weeks Disposition: INTERMEDIATE FACILITY - Home Medications Comprehensive Discharge Medication List: Ambulatory Orders Olmesartan Medoxomil [Benicar -] 40 mg PO DAILY 08/01/17 Amlodipine Besylate [Norvasc -] 5 mg PO DAILY 07/08/18 Aspirin 81 mg PO DAILY 07/08/18 Docusate Sodium [Colace] 100 mg PO TID #40 capsule 02/12/19 Diazepam [Valium] 5 mg PO Q8H #30 tablet MDD 3 02/16/19 Docusate Sodium [Colace -] 100 mg PO TID capsule 02/16/19 Ferrous Sulfate [Feosol] 325 mg PO DAILY@0800 ud 02/16/19 Folic Acid - 1 mg PO DAILY tablet 02/16/19 Gabapentin [Neurontin -] 300 mg PO TID capsule 02/16/19 Heparin - 5,000 unit SQ TID vial 02/16/19 levoFLOXacin [Levaquin -] 500 mg PO DAILY@0600 tablet 02/16/19 oxyCODONE HCL [Roxicodone -] 5 mg PO Q6H PRN #30 tablet MDD 4 02/16/19"
[2019-02-17] MEDS: ACETAMINOPHEN 325 MG TABLET (FP) PO PRN (02:10)
[2019-02-17] MEDS: oxyCODONE HCL 5 MG TABLET PO PRN (02:10)
[2019-02-17] MEDS: DOCUSATE SODIUM 100 MG CAPSULE (FP) PO SCH (06:24)
[2019-02-17] MEDS: HEPARIN NA (PORCINE) 5,000 UNITS/ML 1ML VIAL SQ SCH (06:24)
[2019-02-17] MEDS: GABAPENTIN 300 MG CAPSULE (FP) PO SCH (06:24)
[2019-02-17] MEDS: FERROUS SO4 325 MG TABLET (FP) PO SCH (08:52)
[2019-02-17] MEDS: VALSARTAN 160 MG TABLET (UD) PO SCH (09:32)
[2019-02-17] MEDS: amLODIPine BESYLATE 5 MG TABLET (FP) PO SCH (09:32)
[2019-02-17] MEDS: ASPIRIN 81 MG CHEWABLE TABLETS PO SCH (09:33)
[2019-02-17] MEDS: FOLIC ACID 1 MG TABLET (FP) PO SCH (09:33)
[2019-02-17] MEDS ORDERED: PANTOPRAZOLE 40 MG TABLET (FP) PO SCH (10:00)
[2019-02-17 10:11] VITALS: BP 116/76; PULSE 93; TEMP 98.3
--- NOTE | 2019-02-17 12:37 | PN ---
Progress Note, Physician History of Present Illness: 53yo black woman with PMHx HTN, obesity, hyperglycemia, now s/p C3-C7 posterior fusion, POD 1. Neck pain was initially controlled, but she was very concerned that she had continued left shoulder weakness, and later felt pain at the surgical site. Pt denies previous issues with her Left arm. Pt denies numbness or weakness in the left hand. No fever, chills, n/v, chest pain. Pt was noted to be tachycardic post-operatively while in pain. - Objective Vital Signs: Vital Signs Temperature 98.3 F 02/17/19 10:00 Pulse Rate 93 H 02/17/19 10:00 Respiratory Rate 20 02/17/19 10:00 Blood Pressure 116/76 02/17/19 10:00 O2 Sat by Pulse Oximetry (%) 96 02/17/19 09:00 Eyes: Yes: WNL, Conjunctiva Clear, EOM Intact HENT: Yes: WNL, Atraumatic, Normocephalic Neck: Yes: WNL, Supple, Trachea Midline Cardiovascular: Yes: WNL, Regular Rate and Rhythm Respiratory: Yes: WNL, Regular, CTA Bilaterally Gastrointestinal: Yes: WNL, Normal Bowel Sounds Genitourinary: Yes: WNL Musculoskeletal: Yes: WNL Extremities: Yes: WNL Edema: No Integumentary: Yes: WNL Neurological: Yes: WNL, Alert, Oriented ...Motor Strength: WNL Psychiatric: Yes: WNL Labs: CBC, BMP 02/16/19 05:20 02/16/19 05:20 Assessment/Plan - Problems (1) Shoulder pain Assessment/Plan: still c/o weakness in left shoulder (pt says it is new, occurring since cervical spine surgery a few days ago). Left Shoulder images: arthropathy. Code(s): M25.519 - PAIN IN UNSPECIFIED SHOULDER (2) Cervical post-laminectomy syndrome Assessment/Plan: f/u with neurosurgeon Code(s): M96.1 - POSTLAMINECTOMY SYNDROME, NOT ELSEWHERE CLASSIFIED (3) Hypertension Assessment/Plan: On valsartan and amlodipine. F/u BP and HR. Pain management. Weight loss and diet modification will be beneficial. Code(s): I10 - ESSENTIAL (PRIMARY) HYPERTENSION Qualifiers: Hypertension type: essential hypertension Qualified Code(s): I10 - Essential (primary) hypertension (4) Sinus tachycardia Assessment/Plan: Multiple eitologies, including pain, anxiety, dehydration, CHF, fever, anemia. CTA chest: no PE. TSH low; free T4 WNL. Encourage fluids. Low grade fevers; f/u workup; Antipyretics. On Levaquin; now also on Vancomycin. Code(s): R00.0 - TACHYCARDIA, UNSPECIFIED (5) Fever Assessment/Plan: Leukocytosis; pulmonary infiltrates; sinus tachycardia. On Levaquin. Antipyretics. Code(s): R50.9 - FEVER, UNSPECIFIED (6) Iron deficiency anemia Code(s): D50.9 - IRON DEFICIENCY ANEMIA, UNSPECIFIED (7) Sepsis Assessment/Plan: On Levaquin and Vancomycin. Encourage fluid intake. Code(s): A41.9 - SEPSIS, UNSPECIFIED ORGANISM
--- NOTE | 2019-02-17 16:14 | SURG ---
Surgery Director [employer] Medical [employer] Note Director [employer] Medical Affairs: Buddy Nogueira PA-C Date of Service: 02/09/19 Diagnosis: Cervical Spondylotic Myelopathy Procedure: 1. Cranial tong application 2. Flursocopy 3. Local autograft 4. Posterior Segmental Instrumentation C3-C7 (technically challenging) 5. C3 laminectomy 6. C4 laminectomy 7. C5 laminectomy 8. C6 laminectomy 9. C7 laminectomy 10. C3 posterior osteotomy 11. C4 posterior osteotomy 12. C5 posterior osteotomy 13. C6 posterior osteotomy 14. C7 posterior osteotomy 15. C3/4 posterior lateral arthrodesis 16. C4/5 posterior lateral arthrodesis 17. C5/6 posterior lateral arthrodesis 18. C6/7 posterior lateral arthrodesis 19. Bilateral soft tissue advancement flaps (50cm2) 20. Bahai of lordosis I was present for the entirety of the operative procedure. For further detail, please refer to operative report. Visit type - Case Type Case Type: Scheduled - New patient This patient is new to me today: Yes Date on this admission: 02/17/19
== END 2019-02-17 11:07 | DRG 23 ==
LOC: JSAMEDAYSX 06:07 → J8W 17:03
PROVIDERS: ADMIT Internal Medicine; ATTEND Internal Medicine
PROC: 0RG2071 Fusion of 2 or more Cervical Vertebral Joints with Autologous Tissue Substitute, Posterior Approach, Posterior Column, Open Approach (ICD-10-PCS; 2019-02-09)
PROC: 00NW0ZZ Release Cervical Spinal Cord, Open Approach (ICD-10-PCS; 2019-02-09)
PROC: 0JX70ZZ Transfer Back Subcutaneous Tissue and Fascia, Open Approach (ICD-10-PCS; 2019-02-09)
PROC: B01BZZZ Fluoroscopy of Spinal Cord (ICD-10-PCS; 2019-02-09)
PROC: 0RG20AJ Fusion of 2 or more Cervical Vertebral Joints with Interbody Fusion Device, Posterior Approach, Anterior Column, Open Approach (ICD-10-PCS; principal; 2019-02-09 11:00)
DX: M54.12 Radiculopathy, cervical region (principal); M47.12 Other spondylosis with myelopathy, cervical region; A41.9 Sepsis, unspecified organism; J18.9 Pneumonia, unspecified organism; I10 Essential (primary) hypertension; M96.1 Postlaminectomy syndrome, not elsewhere classified; K21.9 Gastro-esophageal reflux disease without esophagitis; E66.9 Obesity, unspecified; Z68.35 Body mass index [BMI] 35.0-35.9, adult; D50.9 Iron deficiency anemia, unspecified; M62.838 Other muscle spasm; M25.511 Pain in right shoulder; J98.11 Atelectasis; E06.9 Thyroiditis, unspecified
CPT/HCPCS: 36415; 71275-TC; 72125-TC; 72141-TC; 73030-TC-LT-FY; 76000-TC-FY; 80048; 80053; 80061; 82550; 82553; 83036; 83721; 84439; 84443; 84484; 84703; 85025; 85027; 86850; 86900; 86901; 87040; 87086; 87186; 93005; 93010; 93306-TC; 93970-TC; 94760; 97116-GP; 97161-GP; J1644

== ENCOUNTER 2019-03-17 13:12 | Emergency (ER) | payer BC, OTHER ==
--- NOTE | 2019-03-17 13:27 | PDOC ---
History of Present Illness <Flip Bolivar - Last Filed: 03/17/19 17:57> - History of Present Illness Initial Comments: 53yo F with PMH of HTN, cervical spine surgeries (C3-C7 on 02/09/19, C4-C5 on 07/10) presenting after a mechanical fall. Patient was walking down the stairs when she slipped on a tissue left on the floor and fell down eight steps. Patient has had a left upper extremity movement/coordination abnormaily since the most recent procedure which her neurosurgeon is aware of and she is undergoing physical therapy for. This being the case, patient feels her left arm was unable to help her grab onto a railing in time. The left upper extremity abnormality is at its baseline. Patient states her neck pain and lumbar pain are at their baseline, but she has new upper back pain. Also reporting bilateral ankle pain and has not attempted ambulation. She may have rolled her ankles. She has taken percocet for her post-surgical pain but has not taken it for several days as she has not required it. Denies loss of consciousness, nausea, or vomiting. No history of seizures or arrhythmia. Takes an aspirin but no other anticoagulant therapy. No fevers, chills, chest pain, or abdominal pain. PCP: Dr. Alexander Carrillo Neurosurgeon: Dr. Neno Jurado <Nathaly Ramirez - Last Filed: 03/17/19 23:54> - General Stated Complaint: Injury Time Seen by Provider: 03/17/19 13:27 Past History <OsmelFlip - Last Filed: 03/17/19 17:57> - Past Medical History Anemia: No Asthma: No Cancer: No Cardiac Disorders: No CVA: No COPD: No CHF: No Dementia: No Diabetes: No GI Disorders: No Disorders: No HTN: Yes Hypercholesterolemia: No Liver Disease: No Seizures: No Thyroid Disease: No - Surgical History Abdominal Surgery: Yes (UMBILICAL HERNIA REPAIR 12yrs old) Neurologic Surgery: Yes (cervical fusion 2018) - Immunization History Td Vaccination: Yes Immunization Up to Date: Yes - Suicide/Smoking/Psychosocial Hx Smoking Status: No Smoking History: Never smoked Have you smoked in the past 12 months: No Number of Cigarettes Smoked Daily: 0 Hx Alcohol Use: No Drug/Substance Use Hx: No Substance Use Type: None Hx Substance Use Treatment: No <So,Nathaly - Last Filed: 03/17/19 23:54> - Past Medical History Allergies/Adverse Reactions: Allergies Allergy/AdvReac Type Severity Reaction Status Date / Time No Known Allergies Allergy Verified 02/09/19 06:32 Home Medications: Ambulatory Orders Olmesartan Medoxomil [Benicar -] 40 mg PO DAILY 08/01/17 Amlodipine Besylate [Norvasc -] 5 mg PO DAILY 07/08/18 Aspirin 81 mg PO DAILY 07/08/18 Diazepam [Valium] 5 mg PO Q8H #30 tablet MDD 3 02/16/19 Docusate Sodium [Colace -] 100 mg PO TID capsule 02/16/19 Ferrous Sulfate [Feosol] 325 mg PO DAILY@0800 ud 02/16/19 Folic Acid - 1 mg PO DAILY tablet 02/16/19 Gabapentin [Neurontin -] 300 mg PO TID capsule 02/16/19 Oxycodone HCl/Acetaminophen [Percocet 10-325 mg Tablet] 1 each PO PRN 03/17/19 Review of Systems - Review of Systems Comments:: Constitutional: no fever, no chills HEENT: no throat pain, no dysphagia Cardiovascular: no chest pain, no palpitations Respiratory: no cough, no shortness of breath Gastrointestinal: no abdominal pain, no nausea Genitourinary: no dysuria, no frequency Musculoskeletal: +back pain, +neck pain Skin: no rash, no itching Neurologic: no headache, no weakness <AshleyNathaly - Last Filed: 03/17/19 23:54> *Physical Exam - Vital Signs Last Vital Signs Temp Pulse Resp BP Pulse Ox 98.5 F 107 H 18 143/99 97 03/17/19 17:50 03/17/19 17:50 03/17/19 17:50 03/17/19 17:50 03/17/19 17:50 <Flip Bolivar - Last Filed: 03/17/19 17:57> - Physical Exam Comments: General: Awake, alert, and fully oriented, in no acute distress Head: No signs of trauma Eyes: EOMI, sclera anicteric ENT: Moist mucus membranes Neck: C-collar in place Lungs: Lungs clear, Normal breath sounds Cardio: Regular rhythm, S1 and S2 present Abdomen: Soft, nontender. No guarding, no rebound, no masses Extremities: Normal range of motion, Distal pulses present Tender to palpation along lateral malleolus of left ankle and medial malleolus of right ankle with full range of motion/strength/sensation, no erythema or edema noted SKIN: Warm, Dry, normal turgor Neurologic: Cranial nerves II through XII intact. Normal speech, sensation, strength. Abnormal coordination ([id number]) in LUE, normal in RUE. Deferred gait exam Back: Tender to palpation: midline overlying T1 and T2 radiating to the right paraspinal muscles, as well as midline overlying L5, no step-offs/deformities/ fluctuance; no overlying wound or lesion; negative straight leg test bilaterally <Nathaly Ramirez - Last Filed: 03/17/19 23:54> ED Treatment Course - ADDITIONAL ORDERS Additional order review: Laboratory Results 03/17/19 03/17/19 14:45 14:05 Beta HCG, Quant 6.0 Urine HCG, Qual Positive - Medications Given in the ED: ED Medications Discontinued Medications Generic Name Dose Route Start Last Admin Trade Name Freq PRN Reason Stop Dose Admin Cyclobenzaprine HCl 10 mg 03/17/19 14:00 03/17/19 14:11 Flexeril - PO 03/17/19 14:01 10 mg ONCE ONE Administration <Flip Bolivar - Last Filed: 03/17/19 17:57> Medical Decision Making - Medical Decision Making 53yo F with PMH of HTN, cervical spine surgeries (C3-C7 on 02/09/19, C4-C5 on 07/10) presenting after a mechanical fall. PCP: Dr. Alexander Carrillo Neurosurgeon: Dr. Neno Jurado DDX including mechanical fall, syncope, spinal fracture, muscle strain 03/17/19 14:06 Urine test positive Patient states she does not believe she could be Her last period was in the past month or two but she is not sure B-hcg quantitative ordered and sent 03/17/19 14:45 Laboratory Results - last 24 hr 03/17/19 03/17/19 14:05 14:45 Beta HCG, Quant 6.0 Urine HCG, Qual Positive B-hcg 6 Had discussion with patient regarding this unexpected result Elevated beta-hcg is likely a false positive, given last menstrual period and intercourse was in January. Had extensive discussion. Patient understands benefits/risks of ionizing radiation during possible and still wants to get CT imaging. Signed consent to that effect. Patient understands she needs to get the b-hcg level re-checked in two days. 03/17/19 16:12 Patient reporting improved pain, now 0/10 in her upper back CT imaging negative for acute pathology CT Head: "There is no evidence of acute intracranial hemorrhage, mass lesions or infarctions. There is no evidence of fracture or acute bony pathology. IMPRESSION: Normal CT scan of the head with no evidence of acute intracranial pathology. " CT C-spine and T-spine: "Sequential axial images were obtained through the cervical and thoracic spine. Coronal and sagittal reconstructed images were also performed. There is no evidence of fracture, subluxation or acute bony abnormalities. The patient is S/P extensive surgery to the cervical spine from C3 to C6 with anterior and posterior fusion. Clinical correlation as to the nature of the procedure is recommended. The spinal canal is widely patent with no evidence of cord compromise. IMPRESSION: S/P extensive surgery to the cervical spine with no fracture or acute bony pathology. " 03/17/19 18:13 Ankle radiographs negative for acute pathology: "AP, oblique and lateral projections of both ankles reveals no evidence of fracture, dislocation or acute bone or joint abnormalities. IMPRESSION: No fracture or acute pathology " Patient able to ambulate and bear weight on both ankles. Limited by pain. Plan to ELIZABETH-wrap left ankle and discharge 03/17/19 18:21 Wrapped left ankle. Patient discharged 03/17/19 18:29 <Nathaly Ramirez - Last Filed: 03/17/19 23:54> *DC/Admit/Observation/Transfer <Flip Bolivar - Last Filed: 03/17/19 17:57> <Nathaly Ramirez - Last Filed: 03/17/19 23:54> Diagnosis at time of Disposition: Fall (on) (from) other stairs and steps, initial encounter Ankle pain Qualifiers: Chronicity: acute Laterality: bilateral Qualified Code(s): M25.571 - Pain in right ankle and joints of right foot - Discharge Dispostion Disposition: HOME Condition at time of disposition: Stable - Referrals Referrals: Neno Jurado MD, [facility] [Staff Physician] - Alexander Carrillo MD [Primary Care Provider] - Akil Willett DO [Staff Physician] - - Patient Instructions Printed Discharge Instructions: How To Perform RICE (Rest, Ice, Compress, Elevate), DI for Thoracic Back Pain Additional Instructions: You came to the ED for back pain. Your pain improved with a muscle relaxer. We performed imaging which was negative for acute pathology. The beta-hcg level was elevated and should be re-checked in two days. An elevated beta-hcg level is typically seen in , though it may sometimes be falsely elevated. In very rare cases, it may be a sign of a tumor or cancer. Follow-up with your primary care physician in two days for the repeat blood test , to discuss this ED visit, and to further evaluate your back pain. Copies of your workup has been given to you. Bring these with you to the appointment. Follow up with your surgeon. Call the office tomorrow, inform the doctor regarding what happened. Your care is not complete until you do so You have been referred to an retail specialist. Call and make an appointment if your ankle pain does not improve in two to three days. You can bear weight on the ankles as tolerated. You can take [id number] tylenol for pain. Follow the instructions on the medication bottle. Immediate medical attention is required if you have back pain and: numbness in the genital or rectal area, loss of bowel or bladder control, difficulty with urination; fever, unexplained weight loss, or other signs of illness or infection. If you think you are having an emergency, call for emergency medical - Post Discharge Activity
[2019-03-17] MEDS ORDERED: CYCLOBENZAPRINE HCL 10 MG TABLET (FP) PO ONE (14:00)
[2019-03-17] MEDS ORDERED: CYCLOBENZAPRINE HCL 10 MG TABLET (FP) ONE (14:09)
[2019-03-17 14:55] VITALS: BMI 32.8
--- NOTE | 2019-03-17 16:32 | PDOC ---
Documentation entered by Felisa Friedman SCRIBE, acting as scribe for Flip Bolivar MD. Flip Bolivar MD: This documentation has been prepared by the ayanibe, Felisa Friedman SCRIBE, under my direction and personally reviewed by me in its entirety. I confirm that the documentation accurately reflects all work, treatment, procedures, and medical decision making performed by me. Attending Attestation - Resident Resident Name: Nathaly Ramirez - ED Attending Attestation I have performed the following: I have examined & evaluated the patient, The case was reviewed & discussed with the resident, I agree w/resident's findings & plan, Exceptions are as noted - HPI HPI: 03/17/19 14:46 The patient is a 53-year-old female, with a past medical history of HTN, cervical fusion (C1-C2 in October 2018 and C3-C7 on 02/09/[address] Neno Jurado), who presents to the ED s/p mechanical fall today. The patient was going down the stairs and slipped on a tissue that was on one of the steps. Patient fell down 7 steps and landed at the bottom. She denies any head trauma or loss of consciousness. The patients came immediately to her aid. She is complaining of B/L ankle pain and upper back pain. Denies any neck pain. Denies weakness/numbness/incontinence. The patient denies fevers, chills, nausea, vomiting, diarrhea, or abdominal pain. She denies any chest pain or palpitations. She denies any weakness, dizziness, or changes in strength or sensation. - Physicial Exam PE: 03/17/19 14:47 GENERAL: Awake, alert, and fully oriented, in no acute distress. HEAD: No signs of trauma EYES: PERRLA, EOMI, sclera anicteric, conjunctiva clear ENT: Auricles normal inspection, hearing grossly normal, nares patent, oropharynx clear without exudates. Moist mucosa NECK: Nontender, no stepoffs, Normal ROM, supple, no lymphadenopathy, JVD, or masses BACK: mild paraspinal T spine tenderness, no midline TTP, no stepoffs LUNGS: Breath sounds equal, clear to auscultation bilaterally. No wheezes, and no crackles HEART: Regular rate and rhythm, normal S1 and S2, no murmurs, rubs or gallops ABDOMEN: Soft, nontender, normoactive bowel sounds. No guarding, no rebound. No masses EXTREMITIES: Normal range of motion, no edema. No clubbing or cyanosis. No cords, erythema, or tenderness NEUROLOGICAL: Cranial nerves II through XII intact. 5/5 strength and sensation in all extremities, Normal speech, normal cerebellar function SKIN: Warm, Dry, normal turgor, no rashes or lesions noted. - Medical Decision Making 03/17/19 16:30 53 F with mechanical fall, now with upper back and ankle pain. No neuro deficits to suggest cord injury. - CT head/c-spine/t-spine - XR BL ankles Pt UPT positive today HCG is only 6. Suspect false positive, but will have pt consent for imaging. Explained to pt that it is unlikely that she is , but this is a possibility. Also discussed possibility of tumors or malignancy. 03/17/19 18:05 XRs and CTs negative Pt ambulatory in ED with steady gait, minimal pain in R ankle Repeat HR 90. Pt is well appearing, with normal vitals. Clinically stable for DC at this time. I discussed the physical exam findings, ancillary test results and final diagnoses with the patient. I answered all of the patient's questions. The patient was satisfied with the care received and felt comfortable with the discharge plan and treatment plan. The patient agrees to follow up with the primary care physician within 24-72 hours.
[2019-03-17 17:52] VITALS: BP 143/99; PULSE 107; TEMP 98.5
== END 2019-03-17 18:40 | disposition home or self-care (01) ==
LOC: JER 13:12
DX: M25.571 Pain in right ankle and joints of right foot (principal); M25.572 Pain in left ankle and joints of left foot; M54.6 Pain in thoracic spine; W10.8XXA Fall (on) (from) other stairs and steps, initial encounter; Y93.89 Activity, other specified; Y92.038 Other place in apartment as the place of occurrence of the external cause; Y99.8 Other external cause status
CPT/HCPCS: 36415; 70450-TC; 72125-TC; 72128-TC; 73610-TC-LT-FY; 73610-TC-RT-FY; 84702; 84703; 99283-25

== ENCOUNTER 2019-05-31 06:16 | Emergency (ER) | payer BC ==
[2019-05-31 06:57] VITALS: TEMP 98.1; BMI 34.9
[2019-05-31] MEDS ORDERED: ACETAMINOPHEN 1000 MG/100 ML VIAL (NON FORMULARY) IVPB ONE (07:24)
[2019-05-31] MEDS ORDERED: SODIUM CHLORIDE 0.9% 1000 ML INFUS.BAG IV ONE (07:24)
[2019-05-31] MEDS ORDERED: ACETAMINOPHEN INJECTION 100 ML IVPB ONE (07:31)
[2019-05-31] MEDS ORDERED: ONDANSETRON 4 MG/2 ML VIAL IVPUSH ONE (07:41)
[2019-05-31] MEDS ORDERED: FAMOTIDINE 20 MG/50 ML IVPB 20 MG/50 ML MG IVPB ONE ×2 (07:41→07:53)
--- NOTE | 2019-05-31 07:41 | PDOC ---
History of Present Illness - General Chief Complaint: Pain, Acute Stated Complaint: ABD PAIN/VOMITING Time Seen by Provider: 05/31/19 07:22 - History of Present Illness Initial Comments: 05/31/19 09:11 53 years old with past medical history significant for hypertension, high cholesterol, cervical disc disease on gabapentin and oxycodone presents to the emergency department with one-day history of nausea vomiting 5 nonbilious nonbloody and epigastric discomfort. Patient thinks she ate some potatoes that were spoiled. No travel no abdominal distention pain is intermittent usually associated with the vomiting. Symptoms are moderate in severity intermittent seem to be exacerbated by food no alleviating factors. Past History - Past Medical History Allergies/Adverse Reactions: Allergies Allergy/AdvReac Type Severity Reaction Status Date / Time No Known Allergies Allergy Verified 05/31/19 06:46 Home Medications: Ambulatory Orders Olmesartan Medoxomil [Benicar -] 40 mg PO DAILY 08/01/17 Amlodipine Besylate [Norvasc -] 5 mg PO DAILY 07/08/18 Aspirin 81 mg PO DAILY 07/08/18 Gabapentin [Neurontin -] 300 mg PO TID capsule 02/16/19 Oxycodone HCl/Acetaminophen [Percocet 10-325 mg Tablet] 1 each PO PRN 03/17/19 Cephalexin [Keflex] 500 mg PO BID #8 capsule 05/31/19 Ondansetron [Zofran *Odt*] 4 mg SL TID #21 od.tablet 05/31/19 Anemia: No Asthma: No Cancer: No Cardiac Disorders: No CVA: No COPD: No CHF: No Dementia: No Diabetes: No GI Disorders: No Disorders: No HTN: Yes Hypercholesterolemia: No Liver Disease: No Seizures: No Thyroid Disease: No - Surgical History Abdominal Surgery: Yes (UMBILICAL HERNIA REPAIR 12yrs old) Neurologic Surgery: Yes (cervical fusion 2018) - Immunization History Td Vaccination: Yes Immunization Up to Date: Yes - Suicide/Smoking/Psychosocial Hx Smoking Status: No Smoking History: Never smoked Have you smoked in the past 12 months: No Number of Cigarettes Smoked Daily: 0 Information on smoking cessation initiated: No Hx Alcohol Use: No Drug/Substance Use Hx: No Substance Use Type: None Hx Substance Use Treatment: No Review of Systems - Review of Systems Comments:: 05/31/19 09:12 ROS: A complete review of 10 out of 10 review of systems is taken and is negative apart from what is previously mentioned below and in the HPI. *Physical Exam - Vital Signs Last Vital Signs Temp Pulse Resp BP Pulse Ox 98.1 F 104 H 15 124/97 98 05/31/19 06:17 05/31/19 06:17 05/31/19 06:17 05/31/19 06:17 05/31/19 06:17 - Physical Exam Comments: 05/31/19 09:12 Vitals: Triage Vital signs reviewed General Appearance: no acute distress, well nourished well developed, Head: Atraumatic, Neck: Supple;No Nucal rigidity Chest Wall: Nontender Cardiac: Regular rate and rhythym, no murmurs, no rubs, no gallops, Lungs: Clear to auscultation bilateral, good air movement bilaterally, Abdomen: Soft, non distended,epigastric tenderness to palpation Extremities: Full range of motion to all extremities, no cyanosis, clubbing, or edema Skin: Warm and dry, no rashes or lesions, no rash, no petechiae Psych: normal mood, normal affect ED Treatment Course - LABORATORY CBC & Chemistry Diagram: 05/31/19 07:45 05/31/19 07:45 - RADIOLOGY Radiology Studies Ordered: Category Date Time Status CXRPORT [CHEST X-RAY PORTABLE*] [RAD] Stat Radiology 05/31/19 07:23 Ordered Medical Decision Making - Medical Decision Making 05/31/19 09:16 *DC/Admit/Observation/Transfer Diagnosis at time of Disposition: Acute vomiting UTI (urinary tract infection) Qualifiers: Urinary tract infection type: site unspecified Hematuria presence: without hematuria Qualified Code(s): N39.0 - Urinary tract infection, site not specified - Discharge Dispostion Disposition: HOME Condition at time of disposition: Fair Decision to Admit order: No - Prescriptions Prescriptions: Ondansetron [Zofran *Odt*] 4 mg SL TID #21 od.tablet - Referrals Referrals: Alexander Carrillo MD [Primary Care Provider] - - Patient Instructions Additional Instructions: Take Zofran and Keflex as prescribed. Drink plenty of fluids. No solid food until tomorrow. If no vomiting by tonight or tomorrow morning okay to proceed to a bland diet. Return to the emergency department immediately for any severe abdominal pain inability tolerate fluids or for any concerns. Follow-up with her doctor within 2-3 days. - Post Discharge Activity
[2019-05-31] MEDS ORDERED: ONDANSETRON 4 MG/2 ML VIAL ONE (07:53)
[2019-05-31 08:01] LABS: BASO % 0.9 % (0-2.0); EOS % 1.5 % (0-4.5); HEMATOCRIT 35.4 % (32.4-45.2); LYMPH % 19.4 % (8-40); MCH 28.5 pg (25.7-33.7); MCHC 33.9 g/dl (32.0-36.0); MEAN CELL VOLUME 84.1 fl (80-96); MEAN PLT VOLUME 7.9 fl (7.5-11.1); MONO % 3.2 % (3.8-10.2); PLATELET COUNT 312 K/MM3 (134-434); RBC 4.21 M/mm3 (3.60-5.2); RDW 15.9 % (11.6-15.6); WHITE BLOOD COUNT 9.5 K/mm3 (4.0-10.0)
[2019-05-31 08:39] LABS: ALBUMIN 3.6 g/dl (3.4-5.0); BILIRUBIN,TOTAL 0.4 mg/dL (0.2-1); BLOOD UREA NITROGEN 12.8 mg/dL (7-18); CALCIUM 9.5 mg/dL (8.5-10.1); POTASSIUM 4.1 mmol/L (3.5-5.1); TOT PROT 8.5 g/dl (6.4-8.2)
[2019-05-31 09:11] LABS: EPI CELLS 13.9 /HPF (0-5/HPF); HYALINE CASTS 15 /lpf (0-8); PH,URINE 6.5 (5.0-8.0); URINE APPEARANCE CLEAR; URINE BACTERIA 50.8 /hpf (NEGATIVE); URINE BILIRUBIN NEGATIVE (NEGATIVE); URINE COLOR YELLOW; URINE GLUCOSE (UA) NEGATIVE (NEGATIVE); URINE KETONE NEGATIVE (NEGATIVE); URINE LEUK ESTERASE 2+ (NEGATIVE); URINE NITRITE NEGATIVE (NEGATIVE); URINE PROTEIN TRACE (NEGATIVE); URINE RBC 2 /hpf (0-4); URINE UROBILINOGEN 0.2 mg/dL (0.2-1.0); URINE WBC 16 /hpf (0-5)
[2019-05-31 09:29] VITALS: BP 112/58; PULSE 64
== END 2019-05-31 09:45 | disposition home or self-care (01) ==
LOC: JER 06:16
PROC: 3E033GC Introduction of Other Therapeutic Substance into Peripheral Vein, Percutaneous Approach (ICD-10-PCS; principal; 2019-05-31)
PROC: 3E033GC Introduction of Other Therapeutic Substance into Peripheral Vein, Percutaneous Approach (ICD-10-PCS; 2019-05-31)
PROC: 3E033NZ Introduction of Analgesics, Hypnotics, Sedatives into Peripheral Vein, Percutaneous Approach (ICD-10-PCS; 2019-05-31)
DX: N39.0 Urinary tract infection, site not specified (principal); I10 Essential (primary) hypertension; E78.00 Pure hypercholesterolemia, unspecified; Z98.1 Arthrodesis status
CPT/HCPCS: 36415; 71045-TC-FY; 80053; 81003; 83690; 85025; 87086; 99284-25; J0131; J7030

== ENCOUNTER 2020-07-02 15:04 | Emergency (ER) | payer BC ==
[2020-07-02 15:09] VITALS: BMI 33.7
--- OUTSIDE RECORDS SUMMARY | 2020-07-02 15:16 | XMS ---
:1965 Author Organization [facility] Care Team Providers Name Role Phone ED STAFF PHYSICIAN, STAFF Unavailable Unavailable ED STAFF PHYSICIANSHERRI Unavailable Unavailable KRISTINE PARKS Unavailable Unavailable ED STAFF PHYSICIANADORE Unavailable Unavailable ED STAFF PHYSICIAN Unavailable Unavailable Re-disclosure Warning The records that you are about to access may contain information from federally- assisted alcohol or drug abuse programs. If such information is present, then the following federally mandated warning applies: This information has been disclosed to you from records protected by federal confidentiality rules (42 CFR part 2). The federal rules prohibit you from making any further disclosure of this information unless further disclosure is expressly permitted by the written consent of the person to whom it pertains or as otherwise permitted by 42 CFR part 2. A general authorization for the release of medical or other information is NOT sufficient for this purpose. The Federal rules restrict any use of the information to criminally investigate or prosecute any alcohol or drug abuse patient.The records that you are about to access may contain highly sensitive health information, the redisclosure of which is protected by Article 27-F of the [facility] Public Health law. If you continue you may haveaccess to information: Regarding HIV / AIDS; Provided by facilities licensed or operated by the [facility] Office of Mental Health; or Provided by the [facility] Office for People With Developmental Disabilities. If such information is present, then the following [facility] mandated warning applies: This information has been disclosed to you from confidential records which are protected by state law. State law prohibits you from making any further disclosure of this information without the specific written consent of the person to whom it pertains, or as otherwise permitted by law. Any unauthorized further disclosure in violation of state law may result in a fine or residential sentence or both. A general authorization for the release of medical or other information is NOT sufficient authorization for further disclosure. Encounters Encounter Providers Location Date Indications Data Source(s ) Emergency Attender: SHERRI ED H 04/05/2020 [facility] STAFF 07:47:00 AM EDT Medical C enter PHYSICIANAttender: - 04/05/2020 STAFF ED STAFF 10:38:00 AM EDT PHYSICIANAdmitter: [facility] ED STAFF PHYSICIAN Patient discharged. Emergency Attender: ED STAFF H 08/14/2019 06:52:00 PM [facility] PHYSICIANAttender: ADORE LOTT EST - 08/14/2019 [facility] STAFF PHYSICIANAttender: STAFF 09:20:00 PM EST ED STAFF PHYSICIANAdmitter: ED STAFF PHYSICIAN Patient discharged. Emergency H 05/18/2019 06:23:00 AM EDT - 019 [facility] 08:34:00 AM EDT Patient discharged. Outpatient Attender: KRISTINE BULTER 03/10/2019 10:48:0 [facility] KRISTINE Emergency 01/07/2019 11:38:00 AM [facility] Emergency H 12/12/2018 03:41:[address] [facility] Medications Medication Brand Start Product Dose Route [facility] Indications Reaction Description Data Name Date Form Instructions Instructions Source(s) Metronidazo metroN 1 complet Atul nt le 500 MG IDAZOL ed [facility] Oral Tablet E 500 Medical metroNIDAZO mg [place] LE 500 mg Tablet Tablet, , Ordered By: Coni daniel By: Holger Kraus PADirection bob s: 1 tablet Toni oral every a, eight hours PADire ctions : 1 tablet oral every eight hours Azithromyci AZITHr 1 complet Atul nt n 250 MG omycin ed Lai Oral Tablet 250 mg Medica l AZITHromyci Tablet Center n 250 mg , Tablet, Ordere Ordered By: d By: georgie Engle MDDirection Greenb s: 1 tablet erg, oral daily MDDire ctions : 1 tablet oral daily olmesartan- complet [facility] hydrochloro ed [facility] thiazide 40 Medical mg-12.5 mg Center Tablet Ibuprofen ibupro 1 complet [facility] 800 MG Oral fen ed [facility] Tablet 800 mg Medical ibuprofen Tablet Center 800 mg , Tablet, Ordere Ordered By: d By: georgie Engle MDDirection Greenb s: 1 tablet erg, oral every MDDire eight hours ctions PRN : 1 pain-modera tablet te oral every eight hours PRN pain-m oderat e Mupirocin mupiro 1 complet [facility] 20 MG/ML linh ed [facility] Topical calciu Medical Cream m 2 % Center mupirocin Cream, calcium 2 % Ordere Cream, d By: Ordered By: Evelyn Rowley, FNPDirectio FNPDir ns: 1 ection application s: 1 topical applic twice a day ation topica l twice a day Sulfamethox sulfam 1 complet Atul nt azole 800 ethoxa ed Lai MG / zole-t Medical Trimethopri rimeth Center m 160 MG oprim Oral Tablet 800 sulfamethox mg-160 azole-trime mg thoprim 800 Tablet mg-160 mg , Tablet, Ordere Ordered By: d By: kandice NelsonPDlety Rivas, ns: 1 FNPDir tablet oral ection twice a day s: 1 tablet oral twice a day gabapentin complet [facility] 300 mg ed [facility] Ketorolac ketoro 1 complet [facility] Tromethamin lac 10 ed Roderick s e 10 MG mg Medical Oral Tablet Tablet Center ketorolac , 10 mg Ordere Tablet, d By: Ordered By: Sherri Jeffery, , MDDirection MDDire s: 1 tablet ctions oral every : 1 six hours tablet PRN pain oral every six hours PRN pain Dextrometho promet 5 mL complet Atul nt rphan 3 hazine ed Lai MG/ML / -DM Medical Promethazin 6.25 Center e mg-15 Hydrochlori mg/5 de 1.25 mL MG/ML Oral Syrup, Solution Ordere promethazin d By: e-DM 6.25 Michae mg-15 mg/5 l L. mL Syrup, Greenb Ordered By: Alexy silva ctions MDDirection : 5 mL s: 5 mL oral oral three three times a day times a day Insurance Providers Payer name Policy type Policy ID Covered Covered constitution party's Policy P yahir / Coverage constitution party ID relationship to [place] [employer] ormation type [place] BC PPO [id number] SP [id number] [place] [id number] NOT HAVE INFORMATION BLUE CROSS O [id number] BLUE O [id number] CROSS-PAM WORKERS O [id number] COMPENSATION O POMCO RISK [id number] SP [id number] MANAGEMENT [place] O [id number] 01 [id number] HEALTHCARE OPD BC PPO [id number] SP [id number] POMCO RISK [id number] SP [id number] MANAGEMENT BLUE CROSS O [id number] 01 [id number] POMCO RISK [id number] SP [id number] MANAGEMENT Problems, Conditions, and Diagnoses Code Display Name Description Problem Type Effective Data Sour ce(s) Dates I10 Essential ESSENTIAL Diagnosis 04/05/2020 [facility] (primary) (PRIMARY) 07:47:00 AM Medical Michelle r hypertension HYPERTENSION EDT M25.512 Pain in left PAIN IN LEFT Diagnosis 04/05/2020 [facility] shoulder SHOULDER 07:47:00 AM Medical Cente r EDT M25.519 Pain in PAIN IN Diagnosis 04/05/2020 [facility] unspecified UNSPECIFIED 07:47:[address] shoulder SHOULDER EDT N76.0 Acute vaginitis ACUTE VAGINITIS Diagnosis 08/14/2019 Alfredo [facility] 06:52:00 PM Medical Valentinae r EST R10.9 Unspecified UNSPECIFIED Diagnosis 08/14/2019 [facility] abdominal pain ABDOMINAL PAIN 06:52:00 PM Medic al Center EST J02.9 Acute pharyngitis, ACUTE Diagnosis 05/18/2019 [facility] unspecified PHARYNGITIS, 06:23:00 AM Medical Ce nter UNSPECIFIED EDT M25.60 Stiffness of STIFFNESS OF Diagnosis 03/10/2019 [facility] unspecified joint, UNSPECIFIED 10:48:00 AM [facility] Center not elsewhere JOINT, NOT EDT classified ELSEWHERE CLASSIFIED M54.2 Cervicalgia CERVICALGIA Diagnosis 03/10/2019 [facility] 10:48:00 AM Medical Cente r EDT L03.011 Cellulitis of CELLULITIS OF Diagnosis 01/07/2019 [facility] Charito hopkinss right finger RIGHT FINGER 11:38:00 AM Medical C enter EDT M79.646 Pain in PAIN IN Diagnosis 01/07/2019 [facility] unspecified UNSPECIFIED 11:38:[address] finger(s) FINGER(S) EDT R40.7800 Connor coma scale CONNOR COMA Diagnosis 12/12/2018 Alfredo wayne Lai score 13-15, SCALE SCORE 03:41:00 PM Medical Ce nter unspecified time 13-15, EST UNSPECIFIED TIME Results ID Date Data Source Urinalysis.[id number] 08/14/2019 08:05:00 PM EST [facility] 0 Name Value Range Interpretation Description Data Sup porting Code Source(s) Document(s ) Color of Urine YELLOW <content [facility] styleCode="Olga Lai d">Color, Medical Urine Center </content>YELL OW <content styleCode="Bob lics"> (YELLOW )</content> Ketones NEGATIVE <content Saint [Mass/volume] styleCode="Olga Lai in Urine by d">Urine Medical Test strip Ketone Center </content>NEGA TIVE MG/DL<content styleCode="Bob lics"> (NEGATIVE MG/DL)</conten t> UNK CLEAR <content Saint styleCode="Olga Lai d">Urine Medical Clarity Center </content>Sl CLOUDY <content styleCode="Bob lics"> (CLEAR )</content> UNK NEGATIVE <content Saint styleCode="Olga Lai d">Urine Medical Bilirubin Center </content>NEGA TIVE <content styleCode="Bob lics"> (NEGATIVE )</content> Glucose NEGATIVE <content [facility] [Mass/volume] styleCode="Olga Lai in Urine by d">Urine Medical Test strip Glucose Center </content>NEGA TIVE MG/DL<content styleCode="Bob lics"> (NEGATIVE MG/DL)</conten t> Specific 1.015-1.02 <content [facility] gravity of 5 styleCode="Olga Lai Urine by Test d">Urine Medical strip Specific Center [place] </content>1.02 5 <content styleCode="Bob lics"> (1.015-1.025 )</content> Urobilinogen 0.2-1.0 <content [facility] [Units/volume] styleCode="Olga Lai in Urine by d">Urine Medical Test strip Urobilinogen Center </content>0.2 MG/DL<content styleCode="Bob lics"> (0.2-1.0 MG/DL)</conten t> pH of Urine by 4.5-8.0 <content Saint Test strip styleCode="Olga Lai d">Urine pH Medical </content>6.0 Center <content styleCode="Bob lics"> (4.5-8.0 )</content> Protein NEGATIVE <content [facility] [Mass/volume] styleCode="Olga Lai in Urine by d">Urine Medical Test strip Protein Center </content>NEGA TIVE MG/DL<content styleCode="Bob lics"> (NEGATIVE MG/DL)</conten t> Hemoglobin NEGATIVE <content Saint [Presence] in styleCode="Olga Lai Urine by Test d">Urine Blood Medical strip </content>NEGA Center TIVE <content styleCode="Bob lics"> (NEGATIVE )</content> Nitrite NEGATIVE <content [facility] [Presence] in styleCode="Olga Lai Urine by Test d">Urine Medical strip Nitrite Center </content>NEGA TIVE <content styleCode="Bob lics"> (NEGATIVE )</content> UNK 0-3 <content Saint styleCode="Olga Lai d">Urine Red Medical Blood Cell Center </content>0-3 HPF<content styleCode="Bob lics"> (0-3 HPF)</content> Leukocyte NEGATIVE <content [facility] esterase styleCode="Olga Lai [Presence] in d">Urine Medical Urine by Test Leukocyte Center strip </content>NEGA TIVE <content styleCode="Bob lics"> (NEGATIVE )</content> UNK 0-3 <content styleCode="Olga Hoyt d">Urine White Medical Blood Cell Center </content>5 - 10 HPF<content styleCode="Bob lics"> (0-3 HPF)</content> UNK NONE SEEN <content styleCode="Olga Lai d">Urine Mucus Medical </content>FEW Center HPF<content styleCode="Bob lics"> (NONE SEEN HPF)</content> UNK NONE SEEN <content styleCode="Olga Lai d">Epithelial Medical Cell Center </content>10 - 20 HPF<content styleCode="Bob lics"> (NONE SEEN HPF)</content> ID Date Data Source Microbiology.[id number] 08/14/2019 08:05:00 PM EST [facility] 500 Name Value Range Interpretation Code Description Data Nahed rce(s) Supporting Document(s ) UNK <item><content [facility] styleCode="Bold"> Medical Cent er Culture Report </content>
<t able><tbody><tr>< td>Specimen Number:</td><td>[id number]</td></tr ><tr><td>Sample Collection Date/Time: </td><td> 9 8:05 PM</td></tr><tr>< td>Specimen Source:</td><td>U RINE</td></tr><tr ><td>Urine Culture:</td><td> Collection Plate Date: 08/14/2019 20:10 </td></tr><tr><td >Culture Status:</td><td>P reliminary </td></tr><tr><td >Culture Report:</td><td>C ulture in progress </td></tr></tbody ></table></item> UNK <item><content [facility] styleCode="Bold"> Medical Cent er Culture Status </content>
<t able><tbody><tr>< td>Specimen Number:</td><td>[id number]</td></tr ><tr><td>Sample Collection Date/Time: </td><td> 9 8:05 PM</td></tr><tr>< td>Specimen Source:</td><td>U RINE</td></tr><tr ><td>Culture Status:</td><td>P reliminary </td></tr><tr><td >Culture Report:</td><td>C ulture in progress </td></tr><tr><td >Urine Culture:</td><td> Collection Plate Date: 08/14/2019 20:10 </td></tr></tbody ></table></item> ID Date Data Source Urinalysis 12/12/2018 05:01:00 PM EST [facility] Name Value Range Interpretation Description Data Sup porting Code Source(s) Document(s ) Color of Urine YELLOW <content [facility] styleCode="Olga Lai d">Color, Medical Urine Center </content>YELL OW <content styleCode="Bob lics"> (YELLOW )</content> Specific 1.015-1.02 <content [facility] gravity of 5 styleCode="Olga Lai Urine by Test d">Urine Medical strip Specific Center [place] </content>1.02 5 <content styleCode="Bob lics"> (1.015-1.025 )</content> Glucose NEGATIVE <content [facility] [Mass/volume] styleCode="Olga Lai in Urine by d">Urine Medical Test strip Glucose Center </content>NEGA TIVE MG/DL<content styleCode="Bob lics"> (NEGATIVE MG/DL)</conten t> Ketones NEGATIVE <content [facility] [Mass/volume] styleCode="Olga Lai in Urine by d">Urine Medical Test strip Ketone Center </content>TRAC E MG/DL<content styleCode="Bob lics"> (NEGATIVE MG/DL)</conten t> UNK CLEAR <content Saint styleCode="Olga Vaughns d">Urine Medical Clarity Center </content>ADELIA R <content styleCode="Bob lics"> (CLEAR )</content> UNK NEGATIVE <content Saint styleCode="Olga Lai d">Urine Medical Bilirubin Center </content>NEGA TIVE <content styleCode="Bob lics"> (NEGATIVE )</content> Protein NEGATIVE <content [facility] [Mass/volume] styleCode="Olga Vaughns in Urine by d">Urine Medical Test strip Protein Center </content>TRAC E MG/DL<content styleCode="Bob lics"> (NEGATIVE MG/DL)</conten t> Nitrite NEGATIVE <content Saint [Presence] in styleCode="Olga Vaughns Urine by Test d">Urine Medical strip Nitrite Center </content>NEGA TIVE <content styleCode="Bob lics"> (NEGATIVE )</content> Urobilinogen 0.2-1.0 <content Saint [Units/volume] styleCode="Olga Hoyt in Urine by d">Urine Medical Test strip Urobilinogen Center </content>0.2 MG/DL<content styleCode="Bob lics"> (0.2-1.0 MG/DL)</conten t> pH of Urine by 4.5-8.0 <content Saint Test strip styleCode="Olga Lai d">Urine pH Medical </content>6.0 Center <content styleCode="Bob lics"> (4.5-8.0 )</content> Hemoglobin NEGATIVE <content Saint [Presence] in styleCode="Olga Vaughns Urine by Test d">Urine Blood Medical strip </content>NEGA Center TIVE <content styleCode="Bob lics"> (NEGATIVE )</content> UNK <content Saint styleCode="Olga Lai d">Epithelial Medical Cell Center </content>10 - 20 LPF (Reference Range: not available)<br/ > Leukocyte NEGATIVE <content [facility] esterase styleCode="Olga Hoyt [Presence] in d">Urine Medical Urine by Test Leukocyte Center strip </content>NEGA TIVE <content styleCode="Bob lics"> (NEGATIVE )</content> ID Date Data Source Liver Profile 12/12/2018 04:04:00 PM EST [facility] Name Value Range Interpretation Description Data Sup porting Code Source(s) Document(s ) Alanine 7-30 <content [facility] aminotransferase styleCode="Bold"> Juan hs [Enzymatic Alanine Medical activity/volume] Aminotransferase Center in Serum or Plasma (ALT) </content>17 IU/L<content styleCode="Italic s"> (7-30 IU/L)</content> Aspartate 14-36 <content [facility] aminotransferase styleCode="Bold"> Juan hs [Enzymatic Aspartate Medical activity/volume] Aminotransferase Center in Serum or Plasma (AST) </content>22 IU/L<content styleCode="Italic s"> (14-36 IU/L)</content> UNK 0.0-0.3 <content [facility] styleCode="Bold"> Lai Bilirubin, Direct Medical </content>< 0.2 Center MG/DL<content styleCode="Italic s"> (0.0-0.3 MG/DL)</content> Alkaline 38-126 <content [facility] phosphatase styleCode="Bold"> Lai [Enzymatic Alkaline Medical activity/volume] Phosphatase (ALP) Cente r in Serum or Plasma </content>77 IU/L<content styleCode="Italic s"> (38-126 IU/L)</content> Bilirubin.total 0.2-1.3 <content [facility] [Mass/volume] in styleCode="Bold"> Juan hs Serum or Plasma Bilirubin Total Medical </content>0.4 Center MG/DL<content styleCode="Italic s"> (0.2-1.3 MG/DL)</content> Albumin 3.5-5.0 <content [facility] [Mass/volume] in styleCode="Bold"> Juan hs Serum or Plasma Albumin Medical </content>4.2 Center G/DL<content styleCode="Italic s"> (3.5-5.0 G/DL)</content> ID Date Data Source HematologyRou 12/12/2018 04:04:00 PM EST [facility] Name Value Range Interpretation Description Data Sup porting Code Source(s) Document(s ) Erythrocytes 4.0-5.1 <content [facility] [#/volume] in styleCode="Bold Lai Blood by ">Red Blood Medical Automated count Cell Count Center </content>4.44 MCUMM<content styleCode="Ital ics"> (4.0-5.1 MCUMM)</content > Leukocytes 4.4-11.0 <content Saint [#/volume] in styleCode="Bold Lai Blood by ">White Blood Medical Automated count Cell Count Center </content>10.91 KCUMM<content styleCode="Ital ics"> (4.4-11.0 KCUMM)</content > Hematocrit 36.0-46. <content Saint [Volume 0 styleCode="Bold Lai Fraction] of ">Hematocrit Medical Blood by </content>39.5 Center Automated count %<content styleCode="Ital ics"> (36.0-46.0 %)</content> Erythrocyte mean 80.0-100 <content [facility] corpuscular .0 styleCode="Bold Lai volume [Entitic ">Mean Medical volume] by Corpuscular Center Automated count Volume </content>89.0 FL<content styleCode="Ital ics"> (80.0-100.0 FL)</content> Erythrocyte 11.5-14. <content [facility] distribution 5 styleCode="Bold Lai width [Ratio] by ">Red Cell Medical Automated count Distribution Center Width </content>13.5 %<content styleCode="Ital ics"> (11.5-14.5 %)</content> Hemoglobin 12.3-16. <content [facility] [Mass/volume] in 0 styleCode="Bold Lai Blood ">Hemoglobin Medical </content>12.6 Center G/DL<content styleCode="Ital ics"> (12.3-16.0 G/DL)</content> Erythrocyte mean 26.0-34. <content [facility] corpuscular 0 styleCode="Bold Lai hemoglobin ">Mean Medical [Entitic mass] Corposcular Center by Automated Hemoglobin count </content>28.4 PG<content styleCode="Ital ics"> (26.0-34.0 PG)</content> Erythrocyte mean 32.0-37. Below low normal <content [facility] corpuscular 0 styleCode="Bold Lai hemoglobin ">Mean Corpus. Medical concentration Hgb Center [Mass/volume] by Concentration Automated count (MCHC) </content>31.9 G/DL L<content styleCode="Ital ics"> (32.0-37.0 G/DL)</content> UNK 0 <content Saint styleCode="Bold Lai ">Nucleated Red Medical Blood Cell Center </content>0.0 /100<content styleCode="Ital ics"> (0 /100)</content> Platelets 130-400 <content Saint [#/volume] in styleCode="Bold Lai Blood by ">Platelet Medical Automated count Count Center </content>262 KCUMM<content styleCode="Ital ics"> (130-400 KCUMM)</content > Platelet mean 8.0-11.0 <content Saint volume [Entitic styleCode="Bold Lai volume] in Blood ">Mean Platelet Medical by Automated Volume Center count </content>9.6 FL<content styleCode="Ital ics"> (8.0-11.0 FL)</content> UNK 0.0 <content Saint styleCode="Bold Lai ">Nucleated Red Medical Blood Cell Center Count </content>0.00 KCUMM<content styleCode="Ital ics"> (0.0 KCUMM)</content > ID Date Data Source GFR(Creatinine) 12/12/2018 04:04:00 PM EST [facility] Name Value Range Interpretation Code Description Data Nahed rce(s) Supporting Document(s ) UNK > 60 Below low normal <content [facility] styleCode="Bold"> Medical Cent er EGFR </content>60 GFR L<content styleCode="Italic s"> (> 60 GFR)</content> ID Date Data Source CHMROUTINECCDA 12/12/2018 04:04:00 PM EST [facility] Name Value Range Interpretation Description Data Sup porting Code Source(s) Document(s ) Lipase 23-300 <content [facility] [Enzymatic styleCode="Bold Medical activity/vo ">Lipase Center lume] in </content>57 Serum or IU/L<content Plasma styleCode="Ital ics"> (23-300 IU/L)</content> ID Date Data Source BMP 12/12/2018 04:04:00 PM [facility] Name Value Range Interpretation Description Data Sup porting Code Source(s) Document(s ) Sodium 137-145 <content [facility] [Moles/volume] in styleCode="Bold"> [facility] phs Serum or Plasma Sodium Medical </content>141 Center MEQ/L<content styleCode="Italic s"> (137-145 MEQ/L)</content> Chloride 98-107 <content [facility] [Moles/volume] in styleCode="Bold"> [facility] Serum or Plasma Chloride Medical </content>102 Center MEQ/L<content styleCode="Italic s"> (98-107 MEQ/L)</content> Potassium 3.5-5.3 <content [facility] [Moles/volume] in styleCode="Bold"> [facility] phs Serum or Plasma Potassium Medical </content>4.3 Center MEQ/L<content styleCode="Italic s"> (3.5-5.3 MEQ/L)</content> Carbon dioxide, 22-30 Above high <content [facility] total normal styleCode="Bold"> Lai [Moles/volume] in Carbon Dioxide Medical Serum or Plasma </content>31 Center MEQ/L H<content styleCode="Italic s"> (22-30 MEQ/L)</content> UNK 7-17 <content [facility] styleCode="Bold"> Lai BUN </content>15 Medical MG/DL<content Center styleCode="Italic s"> (7-17 MG/DL)</content> Glucose 74-106 Above high <content [facility] [Mass/volume] in normal styleCode="Bold"> Juan hs Serum or Plasma Glucose Medical </content>107 Center MG/DL H<content styleCode="Italic s"> (74-106 MG/DL)</content> Creatinine 0.5-1.3 <content [facility] [Mass/volume] in styleCode="Bold"> Juan hs Serum or Plasma Creatinine Medical </content>1.2 Center MG/DL<content styleCode="Italic s"> (0.5-1.3 MG/DL)</content> UNK > 60 Below low <content [facility] normal styleCode="Bold"> Lai EGFR </content>60 Medical GFR L<content Center styleCode="Italic s"> (> 60 GFR)</content> Calcium 8.4-10. <content [facility] [Mass/volume] in 2 styleCode="Bold"> Juan hs Serum or Plasma Calcium Medical </content>9.2 Center MG/DL<content styleCode="Italic s"> (8.4-10.2 MG/DL)</content> Aspartate 14-36 <content [facility] aminotransferase styleCode="Bold"> Juan hs [Enzymatic Aspartate Medical activity/volume] Aminotransferase Center in Serum or Plasma (AST) </content>22 IU/L<content styleCode="Italic s"> (14-36 IU/L)</content> Albumin 3.5-5.0 <content [facility] [Mass/volume] in styleCode="Bold"> Juan hs Serum or Plasma Albumin Medical </content>4.2 Center G/DL<content styleCode="Italic s"> (3.5-5.0 G/DL)</content> Alanine 7-30 <content [facility] aminotransferase styleCode="Bold"> Juan hs [Enzymatic Alanine Medical activity/volume] Aminotransferase Center in Serum or Plasma (ALT) </content>17 IU/L<content styleCode="Italic s"> (7-30 IU/L)</content> Bilirubin.total 0.2-1.3 <content [facility] [Mass/volume] in styleCode="Bold"> Juan hs Serum or Plasma Bilirubin Total Medical </content>0.4 Center MG/DL<content styleCode="Italic s"> (0.2-1.3 MG/DL)</content> Alkaline 38-126 <content [facility] phosphatase styleCode="Bold"> Lai [Enzymatic Alkaline Medical activity/volume] Phosphatase (ALP) Cente r in Serum or Plasma </content>77 IU/L<content styleCode="Italic s"> (38-126 IU/L)</content> Procedure Social History Code Duration Value Status Description Data Source(s ) Smoking 04/05/2020 Denies Ever completed Denies Ever Smoked [facility]ai 08:43:00 AM EDT Smoked Medical C enter Smoking 04/05/2020 Denies Ever completed Denies Ever Smoked [facility] 08:06:00 AM EDT Smoked Medical C enter Smoking 08/14/2019 Denies Ever completed Denies Ever Smoked [facility] 07:52:00 PM EST Smoked Medical C enter Smoking 05/18/2019 Denies Ever completed Denies Ever Smoked [facility] 06:33:00 AM EDT Smoked Medical C enter Smoking 05/18/2019 Denies Ever completed Denies Ever Smoked [facility] 06:30:00 AM EDT Smoked Medical C enter Smoking 05/18/2019 Denies Ever completed Denies Ever Smoked [facility] 06:28:00 AM EDT Smoked Medical C enter Smoking 01/07/2019 Denies Ever completed Denies Ever Smoked [facility] 12:49:00 PM EDT Smoked Medical C enter Smoking 01/07/2019 Denies Ever completed Denies Ever Smoked [facility] 11:51:00 AM EDT Smoked Medical C enter Smoking 12/12/2018 Denies Ever completed Denies Ever Smoked [facility] 04:54:00 PM EST Smoked [facility] Smoking 12/12/2018 Denies Ever completed Denies Ever Smoked [facility] 03:49:00 PM EST Smoked [facility] Smoking 12/12/2018 Denies Ever completed Denies Ever Smoked [facility] 03:09:00 PM EST Smoked [facility] Smoking Unknown if ever completed Unknown if ever Alfredo t Lai smoked smoked [facility] Vital Signs ID Date Data Source UNK Name Value Range Interpretation Code Description Data Source(s) Body temperature 36.301600 36.620109 [facility] Respiratory rate 19 /min 19 /min [facility] Oxygen saturation 98 % 98 % [facility] osephs in Arterial blood [facility] Center by Pulse oximetry Heart rate 79 /min 79 /min [facility] Diastolic blood 100 mm[Hg] 100 mm[Hg] [facility] pressure [facility] Systolic blood 160 mm[Hg] 160 mm[Hg] [facility] Body weight 90.756479 kg 90.084665 kg [facility] Body temperature 36.153065 36.178905 [facility] Respiratory rate 18 /min 18 /min [facility] Oxygen saturation 97 % 97 % [facility] in Arterial blood [facility] Center by Pulse oximetry Heart rate 102 /min 102 /min [facility] Body height 165.914680 165.846966 cm [facility] [place] Diastolic blood 107 mm[Hg] 107 mm[Hg] [place] [facility] pressure [facility] Center Systolic blood 163 mm[Hg] 163 mm[Hg] [facility] Body mass index 33.0 kg/m2 33.0 kg/m2 [facility] (BMI) [Ratio] [facility] Body weight 92.002278 kg 92.538831 [facility] Body temperature 36.505181 36.608608 [facility] Respiratory rate 18 /min 18 /min [facility] Oxygen saturation 96 % 96 % [facility] in Arterial blood [facility] by Pulse oximetry Heart rate 115 /min 115 /min [facility] Body height 165.038917 165.030029 cm [facility] Diastolic blood 100 mm[Hg] 100 mm[Hg] [place] [facility] Systolic blood 151 mm[Hg] 151 mm[Hg] [facility] Body mass index 33.7 kg/m2 33.7 kg/m2 [facility] (BMI) [Ratio] [facility] Body temperature 37.745541 37.825562 [facility] Respiratory rate 20 /min 20 /min [facility] Oxygen saturation 98 % 98 % [facility] in Arterial blood [facility] by Pulse oximetry Heart rate 110 /min 110 /min [facility] Diastolic blood 90 mm[Hg] 90 mm[Hg] [facility] pressure Medical Center Systolic blood 153 mm[Hg] 153 mm[Hg] [facility] Body weight 90.552650 kg 90.466883 kg [facility] Body temperature 38.766626 38.359758 [facility] Respiratory rate 23 /min 23 /min [facility] Oxygen saturation 98 % 98 % [facility] in Arterial blood [facility] by Pulse oximetry Heart rate 128 /min 128 /min [facility] Diastolic blood 91 mm[Hg] 91 mm[Hg] [facility] pressure [facility] Center Systolic blood 160 mm[Hg] 160 mm[Hg] [facility] Body weight 92.274752 kg 92.644409 kg [facility] Body temperature 36.774693 36.420272 [facility] Respiratory rate 19 /min 19 /min [facility] Oxygen saturation 98 % 98 % [facility] in Arterial blood [facility] by Pulse oximetry Heart rate 94 /min 94 /min [facility] Body height 165.278579 165.929736 cm [facility] Diastolic blood 70 mm[Hg] 70 mm[Hg] [facility] Systolic blood 140 mm[Hg] 140 mm[Hg] [facility] Body mass index 34.1 kg/m2 34.1 kg/m2 [facility] (BMI) [Ratio] [facility] Body temperature 36.703482 36.045630 [facility] Respiratory rate 18 /min 18 /min [facility] Oxygen saturation 99 % 99 % [facility] in Arterial blood [facility] Center by Pulse oximetry Heart rate 88 /min 88 /min [facility] Diastolic blood 78 mm[Hg] 78 mm[Hg] [facility] Systolic blood 136 mm[Hg] 136 mm[Hg] [facility] Body temperature 36.663280 36.460656 [facility] Respiratory rate 19 /min 19 /min [facility] Oxygen saturation 96 % 96 % [facility] in Arterial blood [facility] by Pulse oximetry Heart rate 86 /min 86 /min [facility] Diastolic blood 74 mm[Hg] 74 mm[Hg] [facility] Systolic blood 130 mm[Hg] 130 mm[Hg] [facility] Body temperature 36.716109 36.931429 [facility] Respiratory rate 18 /min 18 /min [facility] Oxygen saturation 98 % 98 % [facility] osephs in Arterial blood Medical Center by Pulse oximetry Heart rate 111 /min 111 /min [facility] Diastolic blood 78 mm[Hg] 78 mm[Hg] [facility] Systolic blood 133 mm[Hg] 133 mm[Hg] [facility] Body temperature 36.375364 36.666441 [facility] Respiratory rate 17 /min 17 /min [facility] Oxygen saturation 98 % 98 % [facility] osephs in Arterial blood [facility] by Pulse oximetry Heart rate 105 /min 105 /min [facility] Diastolic blood 75 mm[Hg] 75 mm[Hg] [facility] Systolic blood 130 mm[Hg] 130 mm[Hg] [facility] Patient Treatment Plan of Care Planned Activity Planned Date Details Description Data Source (s) Ketorolac Tromethamine 10 MG [facility] Oral Tablet [place] gabapentin 300 mg Capsule [facility] olmesartan-hydrochlorothiazide [facility] 40 mg-12.5 mg Tablet [place] Metronidazole 500 MG Oral [facility] Dextromethorphan 3 MG/ML / S [facility] Promethazine Hydrochloride C enter 1.25 MG/ML Oral Solution Ibuprofen 800 MG Oral Tablet [facility] Azithromycin 250 MG Oral [facility] Tablet [place] Mupirocin 20 MG/ML Topical S [facility] Cream [place] Sulfamethoxazole 800 MG / [facility] Trimethoprim [address] Tablet
--- NOTE | 2020-07-02 17:11 | PDOC ---
History of Present Illness - General Chief Complaint: Pain Stated Complaint: NECK PAIN History Source: Patient Exam Limitations: No Limitations - History of Present Illness Initial Comments: 07/02/20 16:24 Patient is a 55-year-old female with history of cervical spondylosis, hernia repair, hypertension here with complaints of neck pain x3 days radiating up to the head. States that when she turns her neck to the left it is difficult to turn it back to midline. She has been taking oxycodone 10/325 for the pain however her pain is still 7/10. Denies dizziness, nausea, vomiting. PMD: Dr. Carrillo PMHX: as above PSOCHX: neg Famhx: Noncontributory ALL: NKDA GENERAL/CONSTITUTIONAL: [No fever or chills. No weakness. No weight change.] HEAD, EYES, EARS, NOSE AND THROAT: [No change in vision. No ear pain or discharge. No sore throat.] CARDIOVASCULAR: [No chest pain or shortness of breath.] RESPIRATORY: [No cough, wheezing, or hemoptysis.] GASTROINTESTINAL: [No nausea, vomiting, diarrhea or constipation. No rectal bleeding.] GENITOURINARY: [No dysuria, frequency, or change in urination.] MUSCULOSKELETAL: [No joint or muscle swelling or pain. (+) neck or back pain.] SKIN AND BREASTS: [No rash or easy bruising.] NEUROLOGIC: [No headache, vertigo, loss of consciousness, or loss of sensation.] PSYCHIATRIC: [No depression or anxiety.] ENDOCRINE: [No increased thirst. No abnormal weight change.] HEMATOLOGIC/LYMPHATIC: [No anemia, easy bleeding, or history of blood clots.] ALLERGIC/IMMUNOLOGIC: [No hives or skin allergy. No latex allergy.] GENERAL: [The patient is awake, alert, and fully oriented, in Mild distress.] HEAD: [Normal with no signs of trauma.] EYES: [Pupils equal, round and reactive to light, extraocular movements intact, sclera anicteric, conjunctiva clear.] ENT: [Ears normal, nares patent, oropharynx clear without exudates. Moist mucous membranes.] NECK: Decreased range of motion, (+) Tenderness midline spine and right paraspinal, supple without lymphadenopathy, JVD, or masses.] LUNGS: [Breath sounds equal, clear to auscultation bilaterally. No wheezes, and no crackles.] HEART: [Regular rate and rhythm, normal S1 and S2 without murmur, rub.] ABDOMEN: [Soft, nontender, normoactive bowel sounds. No guarding, no rebound. No masses.] EXTREMITIES: [Decreased range of motion to the right shoulder, no edema. No clubbing or cyanosis. No cords, erythema, or tenderness.] NEUROLOGICAL: [Cranial nerves II through XII grossly intact. Normal speech, normal gait.] PSYCH: [Normal mood, normal affect.] SKIN: [Warm, Dry, normal turgor, no rashes or lesions noted.] Past History - Medical History Allergies/Adverse Reactions: Allergies Allergy/AdvReac Type Severity Reaction Status Date / Time No Known Allergies Allergy Verified 07/02/20 15:09 Home Medications: Ambulatory Orders Olmesartan Medoxomil [Benicar -] 40 mg PO DAILY 08/01/17 Amlodipine Besylate [Norvasc -] 5 mg PO DAILY 07/08/18 Aspirin 81 mg PO DAILY 07/08/18 Gabapentin [Neurontin -] 300 mg PO TID capsule 02/16/19 Oxycodone HCl/Acetaminophen [Percocet 10-325 mg Tablet] 1 each PO PRN 03/17/19 Cephalexin [Keflex] 500 mg PO BID #8 capsule 05/31/19 Ondansetron [Zofran *Odt*] 4 mg SL TID #21 od.tablet 05/31/19 Anemia: No Asthma: No Cancer: No Cardiac Disorders: No CVA: No COPD: No CHF: No Dementia: No Diabetes: No GI Disorders: No Disorders: No HTN: Yes Hypercholesterolemia: No Liver Disease: No Seizures: No Thyroid Disease: No - Surgical History Abdominal Surgery: Yes (UMBILICAL HERNIA REPAIR 12yrs old) Neurologic Surgery: Yes (cervical fusion 2018) - Immunization History Td Vaccination: Yes Immunization Up to Date: Yes - Psycho-Social/Smoking History Smoking Status: No Smoking History: Never smoked Have you smoked in the past 12 months: No Number of Cigarettes Smoked Daily: 0 - Substance Abuse Hx (Audit-C & DAST Scrn) How often the patient has a drink containing alcohol: Never Score: In Men: 4 or > Positive; In Women: 3 or > Positive: 0 Screen Result (Pos requires Nsg. Audit-10AR): Negative *Physical Exam - Vital Signs Last Vital Signs Temp Pulse Resp BP Pulse Ox 97 F L 103 H 18 135/96 100 07/02/20 15:07 07/02/20 15:07 07/02/20 15:07 07/02/20 15:07 07/02/20 15:07 ED Treatment Course - RADIOLOGY Radiology Studies Ordered: Category Date Time Status CERVICAL SPINE CT W/O CONTR [CT] Stat CT Scan 07/02/20 15:44 Ordered Medical Decision Making - Medical Decision Making 07/02/20 16:24 Patient is a 55-year-old female with history of cervical spondylosis, hernia repair, hypertension here with complaints of neck pain x3 days radiating up to the head. States that when she turns her neck to the left it is difficult to turn it back to midline. She has been taking oxycodone 10/325 for the pain however her pain is still 7/10. Denies dizziness, nausea, vomiting. 07/02/20 18:25 Patient Full Name: GREG JOE Patient Accession No: [id number] Patient : 1965 Reason for Exam: PAIN Referring Physician: Patient Name: TATYANA GARZA THIS IS A PRELIMINARY REPORT FROM [facility] DATE OF SERVICE:2020-07-02 16:35:25 IMAGES: [id number] EXAM: CT cervical spine without contrast HISTORY:PAIN COMPARISON: None. FINDINGS: Cervical spine demonstrates normal alignment. Prior anterior cervical discectomy and fusion with partial corpectomy from C3- C6. Prior laminectomies from C4-C6. Prior posterior spinal fusion from C3-C7. Orthopedic hardware is intact without acute fracture or dislocation. Disc space narrowing with marginal vertebral osteophytes at C6-C7. Mild neural foraminal stenosis at the right C4-C5 and C5-C6 levels. No substantial intracanal stenosis or neural foraminal stenosis in the remainder of the cervical spine. One or more of the following dose reduction techniques were used: automated exposure control, adjustment of the mA and/or kV according to patient size, use of iterative reconstructive technique. THIS DOCUMENT HAS BEEN ELECTRONICALLY SIGNED Cordell Sol MD 07/02/2020 18:18 EST M.D. Please call Imaging Director Of Compliance [phone] ([phone]) with questions. INTERPRETING RADIOLOGIST: Cordell Sol MD Electronically Signed: Jul 02, 2020 06:20PM EDT Selected Entries 07/02/20 18:11 Temperature 98 F Pulse Rate [ 81 Left Radial] Respiratory 18 Rate Blood Pressure 151/94 [Right Arm] O2 Sat by Pulse 98 Oximetry (%) 07/02/20 18:31 Labs reviewed as above. No acute findings. I discussed the physical exam findings, ancillary test results and final diagnoses with the patient. I answered all of the patient's questions. The patient was satisfied with the care received and felt comfortable with the discharge plan and treatment plan. The Patient agrees to follow up with the [facility] physician within 24-72 hours. Discharge - Discharge Information Problems reviewed: Yes Clinical Impression/Diagnosis: Neck pain, Muscle spasm Shoulder pain Qualifiers: Chronicity: acute Laterality: right Qualified Code(s): M25.511 - Pain in right shoulder Condition: Stable Disposition: HOME - Follow up/Referral Referrals: Alexander Carrillo MD [Primary Care Provider] - - Patient Discharge Instructions Patient Printed Discharge Instructions: DI for Shoulder Pain, DI for Chronic Neck Pain Additional Instructions: Your Discharge Instructions: You must call primary care physician within 24 hours to arrange follow-up. Return to the Emergency Department with any new, persistent or worsening symptoms, for fever, chills, SOB, dizziness or any other concerning changes that may occur. Call your surgeon if symptoms worsen. Continue pain medication and muscle relaxants as prescribed. Use warm compresses to the area. - Post Discharge Activity
[2020-07-02] MEDS ORDERED: KETOROLAC TROMETHAMINE 30 MG/1 ML VIAL IM ONE (18:08)
[2020-07-02 18:12] VITALS: BP 151/94; PULSE 81; TEMP 98
[2020-07-02] MEDS ORDERED: KETOROLAC TROMETHAMINE 30 MG/1 ML VIAL ONE (18:14)
== END 2020-07-02 18:36 | disposition home or self-care (01) ==
LOC: JERFT 15:04
PROC: 3E0233Z Introduction of Anti-inflammatory into Muscle, Percutaneous Approach (ICD-10-PCS; principal; 2020-07-02)
DX: M54.2 Cervicalgia (principal); M25.511 Pain in right shoulder
CPT/HCPCS: 72125-TC; 99284-25

== ENCOUNTER 2020-10-24 07:05 | Emergency (ER) | payer BC ==
[2020-10-24 07:40] VITALS: BMI 34.9
[2020-10-24] MEDS ORDERED: ACETAMINOPHEN 325 MG TABLET (FP) PO ONE (08:04)
[2020-10-24] MEDS ORDERED: KETOROLAC TROMETHAMINE 15 MG/ML VIAL IM ONE (08:25)
[2020-10-24] MEDS ORDERED: KETOROLAC TROMETHAMINE 30 MG/1 ML VIAL ONE (09:24)
[2020-10-24] MEDS ORDERED: LIDOCAINE HCL 2% (20ML MULTI-DOSE VIAL) ONE (09:25)
[2020-10-24] MEDS ORDERED: ACETAMINOPHEN 325 MG TABLET (FP) ONE (09:28)
[2020-10-24 10:21] VITALS: BP 128/96; PULSE 89; TEMP 97.8
== END 2020-10-24 10:21 | disposition home or self-care (01) ==
LOC: JER 07:05
PROC: 3E0233Z Introduction of Anti-inflammatory into Muscle, Percutaneous Approach (ICD-10-PCS; principal; 2020-10-24)
DX: M62.838 Other muscle spasm (principal)
CPT/HCPCS: 99284-25

== ENCOUNTER 2021-05-09 07:38 | Emergency (ER) | payer OTHER, BC ==
[2021-05-09 07:52] VITALS: BMI 37.0
[2021-05-09] MEDS ORDERED: SODIUM CHLORIDE 0.9% 500 ML INFUS.BAG IV ONE ×2 (09:44→11:49)
[2021-05-09] MEDS ORDERED: KETOROLAC TROMETHAMINE 30 MG/1 ML VIAL IM ONE (09:44)
[2021-05-09] MEDS ORDERED: KETOROLAC TROMETHAMINE 30 MG/1 ML VIAL ONE (09:51)
[2021-05-09 10:55] LABS: BASO % 0.6 % (0-2.0); HEMATOCRIT 35.8 % (32.4-45.2); LYMPH % 13.4 % (8-40); MCHC 33.6 g/dl (32.0-36.0); MEAN CELL VOLUME 86.2 fl (80-96); MEAN PLT VOLUME 7.5 fl (7.5-11.1); MONO % 8.6 % (3.8-10.2); NEUT % 77.4 % (42.8-82.8); PLATELET COUNT 222 10^3/uL (134-434); RBC 4.15 M/mm3 (3.60-5.2); RDW 14.2 % (11.6-15.6)
[2021-05-09 11:24] LABS: CALCIUM 8.2 mg/dL (8.5-10.1)
[2021-05-09 11:25] LABS: ALBUMIN 3.4 g/dl (3.4-5.0); BLOOD UREA NITROGEN 12.4 mg/dL (7-18)
[2021-05-09 11:28] LABS: CREATININE 1.2 mg/dL (0.55-1.3)
[2021-05-09 11:29] LABS: BILIRUBIN,TOTAL 0.9 mg/dL (0.2-1); TOT PROT 7.6 g/dl (6.4-8.2)
[2021-05-09] MEDS ORDERED: METOCLOPRAMIDE HCL INJECTION 10 MG/2 ML VIAL IVPUSH ONE (11:49)
[2021-05-09] MEDS ORDERED: METOCLOPRAMIDE HCL INJECTION 10 MG/2 ML VIAL ONE (12:57)
[2021-05-09 15:47] VITALS: BP 115/72; PULSE 95; TEMP 98.9
== END 2021-05-09 15:48 | disposition home or self-care (01) ==
LOC: JER 07:38
PROC: 3E0233Z Introduction of Anti-inflammatory into Muscle, Percutaneous Approach (ICD-10-PCS; principal; 2021-05-09)
PROC: 3E033GC Introduction of Other Therapeutic Substance into Peripheral Vein, Percutaneous Approach (ICD-10-PCS; 2021-05-09)
DX: M54.2 Cervicalgia (principal)
CPT/HCPCS: 36415; 80053; 85025; 99284-25

== ENCOUNTER 2021-05-09 20:16 | Inpatient (IN) | payer OTHER, BC ==
[2021-05-09 20:24] VITALS: BMI 37.0
[2021-05-09] MEDS ORDERED: SODIUM CHLORIDE 0.9% 500 ML INFUS.BAG IV ONE (20:41)
[2021-05-09] MEDS ORDERED: ACETAMINOPHEN 1000 MG/100 ML VIAL (NON FORMULARY) IVPB ONE (20:41)
[2021-05-09] MEDS ORDERED: ONDANSETRON 4 MG/2 ML VIAL IVPUSH ONE (20:41)
[2021-05-09] MEDS ORDERED: ONDANSETRON 4 MG/2 ML VIAL ONE (21:14)
[2021-05-09] MEDS ORDERED: ACETAMINOPHEN INJECTION 100 ML IVPB ONE (21:14)
[2021-05-09 21:45] LABS: VENOUS BASE EXCESS 2.9 mmol/L (-2-2); VENOUS O2 SATURATION 72.6 % (70-80); VENOUS PCO2 43.7 mmHg (38-52); VENOUS PH 7.422 (7.310-7.410)
[2021-05-09 21:49] LABS: BASO % 0.3 % (0-2.0); HEMATOCRIT 34.9 % (32.4-45.2); HEMOGLOBIN 11.7 GM/dL (10.7-15.3); LYMPH % 7.6 % (8-40); MCH 29.3 pg (25.7-33.7); MCHC 33.7 g/dl (32.0-36.0); MEAN CELL VOLUME 87.1 fl (80-96); MEAN PLT VOLUME 7.8 fl (7.5-11.1); NEUT % 84.1 % (42.8-82.8); PLATELET COUNT 218 10^3/uL (134-434); WHITE BLOOD COUNT 15.9 K/mm3 (4.0-10.0)
[2021-05-09 21:54] LABS: INR 1.19 (0.83-1.09); PROTHROMBIN TIME (PATIENT) 14.3 SEC (9.7-13.0)
[2021-05-09 21:56] LABS: ACTIVATED PTT 28.5 SECONDS (25.2-36.5)
[2021-05-09 22:09] LABS: CHLORIDE 101 mmol/L (98-107); SODIUM 136 mmol/L (136-145)
[2021-05-09 22:12] LABS: ALBUMIN 3.2 g/dl (3.4-5.0); ANION GAP 8 MMOL/L (8-16); BLOOD UREA NITROGEN 16.1 mg/dL (7-18); CO2 26 mmol/L (21-32); GLUCOSE,RANDOM 135 mg/dL (74-106)
[2021-05-09 22:15] LABS: CREATININE 1.3 mg/dL (0.55-1.3); SGOT/AST 22 U/L (15-37); SGPT/ALT 22 U/L (13-61)
[2021-05-09 22:17] LABS: BILIRUBIN,TOTAL 1.1 mg/dL (0.2-1); TOT PROT 7.6 g/dl (6.4-8.2)
[2021-05-09 22:18] LABS: ALK PHOS 62 U/L (45-117)
[2021-05-10 00:33] LABS: EPI CELLS 22 /uL (0-25.1); HYALINE CASTS 2 /uL (0-3.1); PH,URINE 5.5 (5.0-8.0); URINE APPEARANCE TURBID; URINE BACTERIA 203 /uL (0-1359); URINE BILIRUBIN NEGATIVE (NEGATIVE); URINE COLOR YELLOW; URINE GLUCOSE (UA) NEGATIVE (NEGATIVE); URINE KETONE 1+ (NEGATIVE); URINE LEUK ESTERASE 2+ (NEGATIVE); URINE NITRITE NEGATIVE (NEGATIVE); URINE PROTEIN TRACE (NEGATIVE); URINE RBC 13 /uL (0-23.9); URINE WBC 132 /uL (0-25.8)
[2021-05-10] MEDS ORDERED: ONDANSETRON 4 MG/2 ML VIAL IVPUSH ONE (01:20)
[2021-05-10] MEDS ORDERED: ONDANSETRON 4 MG/2 ML VIAL ONE (01:39)
[2021-05-10] MEDS ORDERED: CEFTRIAXONE 1 GM in DEXTROSE 5%-WATER - 100 ML IVPB ONE (03:45)
[2021-05-10] MEDS ORDERED: ACETAMINOPHEN 1000 MG/100 ML VIAL (NON FORMULARY) IVPB ONE (04:51)
[2021-05-10] MEDS ORDERED: SODIUM CHLORIDE 0.9% 500 ML INFUS.BAG IV ONE (04:51)
[2021-05-10] MEDS ORDERED: AZITHROMYCIN IVPB 500 MG in DEXTROSE 5%-WATER - 250 ML IVPB ONE (04:51)
[2021-05-10] MEDS ORDERED: ACETAMINOPHEN INJECTION 100 ML IVPB ONE (04:59)
[2021-05-10] MEDS ORDERED: AZITHROMYCIN IVPB 500 MG/250 ML BAG IVPB ONE (05:00)
[2021-05-10] MEDS ORDERED: CEFTRIAXONE 1 GM/50 ML BAG ONE (05:02)
[2021-05-10] MEDS ORDERED: ONDANSETRON 4 MG/2 ML VIAL IVPUSH PRN (13:45)
[2021-05-10] MEDS: ACETAMINOPHEN 325 MG TABLET (FP) PO PRN ×2 (14:06→22:10)
[2021-05-10] MEDS: DEXTROSE 5%-0.45% SALINE 1,000 ML IV SCH (16:01)
[2021-05-10] MEDS ORDERED: PIPERACILLIN/TAZOBACTAM 3.375 GM VIAL IVPB ONE (17:15)
[2021-05-10] MEDS ORDERED: DEXTROSE 5%-WATER - 50 ML IVPB ONE (17:16)
[2021-05-10] MEDS: PIPERACILLIN/TAZOB 3.375 GM 3.375 GM in DEXTROSE 5%-WATER - 50 ML IVPB SCH (17:28)
[2021-05-11] MEDS ORDERED: DEXTROSE 5%-WATER - 50 ML IVPB ONE ×3 (01:11→17:29)
[2021-05-11] MEDS ORDERED: PIPERACILLIN/TAZOBACTAM 3.375 GM VIAL IVPB ONE ×3 (01:11→17:29)
[2021-05-11] MEDS: PIPERACILLIN/TAZOB 3.375 GM 3.375 GM in DEXTROSE 5%-WATER - 50 ML IVPB SCH ×3 (01:42→17:42)
[2021-05-11] MEDS: DEXTROSE 5%-0.45% SALINE 1,000 ML IV SCH ×2 (08:05→17:40)
[2021-05-11] MEDS: ACETAMINOPHEN 325 MG TABLET (FP) PO PRN (08:07)
[2021-05-11 09:52] LABS: BASO % 0.5 % (0-2.0); EOS % 0.9 % (0-4.5); HEMOGLOBIN 11.2 GM/dL (10.7-15.3); MCH 29.2 pg (25.7-33.7); MEAN CELL VOLUME 86.1 fl (80-96); MEAN PLT VOLUME 7.6 fl (7.5-11.1); MONO % 9.8 % (3.8-10.2); NEUT % 73.8 % (42.8-82.8); PLATELET COUNT 228 10^3/uL (134-434); RBC 3.84 M/mm3 (3.60-5.2); RDW 14.1 % (11.6-15.6); WHITE BLOOD COUNT 10.4 K/mm3 (4.0-10.0)
[2021-05-11] MEDS ORDERED: CEFTRIAXONE 1 GM in DEXTROSE 5%-WATER - 50 ML IVPB SCH (10:00)
[2021-05-11 10:16] LABS: ALBUMIN 2.8 g/dl (3.4-5.0); BLOOD UREA NITROGEN 9.3 mg/dL (7-18)
[2021-05-11 10:19] LABS: CREATININE 1.2 mg/dL (0.55-1.3)
[2021-05-11 10:20] LABS: BILIRUBIN,TOTAL 0.9 mg/dL (0.2-1); TOT PROT 6.8 g/dl (6.4-8.2)
[2021-05-11] MEDS ORDERED: PT OWN MED DRAWER 7, Y5N ONE (10:39)
[2021-05-11] MEDS: ENOXAPARIN NA (PORCINE) 40 MG/0.4 ML DISP.SYRIN SQ SCH (10:48)
[2021-05-11] MEDS: amLODIPine BESYLATE 5 MG TABLET (FP) PO SCH (10:49)
[2021-05-11] MEDS: AZITHROMYCIN IVPB 250 MG in DEXTROSE 5%-WATER - 250 ML IVPB SCH (10:49)
[2021-05-12] MEDS ORDERED: DEXTROSE 5%-WATER - 50 ML IVPB ONE ×3 (01:15→16:53)
[2021-05-12] MEDS ORDERED: PIPERACILLIN/TAZOBACTAM 3.375 GM VIAL IVPB ONE ×3 (01:15→16:52)
[2021-05-12] MEDS: ACETAMINOPHEN 325 MG TABLET (FP) PO PRN (02:04)
[2021-05-12] MEDS: DEXTROSE 5%-0.45% SALINE 1,000 ML IV SCH ×2 (02:05→20:21)
[2021-05-12] MEDS: PIPERACILLIN/TAZOB 3.375 GM 3.375 GM in DEXTROSE 5%-WATER - 50 ML IVPB SCH ×3 (02:05→17:07)
[2021-05-12] MEDS: amLODIPine BESYLATE 5 MG TABLET (FP) PO SCH (10:58)
[2021-05-12] MEDS: ENOXAPARIN NA (PORCINE) 40 MG/0.4 ML DISP.SYRIN SQ SCH (11:00)
[2021-05-12] MEDS: AZITHROMYCIN IVPB 250 MG in DEXTROSE 5%-WATER - 250 ML IVPB SCH (12:19)
[2021-05-13] MEDS ORDERED: PIPERACILLIN/TAZOBACTAM 3.375 GM VIAL IVPB ONE ×3 (01:11→16:28)
[2021-05-13] MEDS ORDERED: DEXTROSE 5%-WATER - 50 ML IVPB ONE ×3 (01:11→16:28)
[2021-05-13] MEDS: PIPERACILLIN/TAZOB 3.375 GM 3.375 GM in DEXTROSE 5%-WATER - 50 ML IVPB SCH ×3 (01:22→17:25)
[2021-05-13] MEDS: DEXTROSE 5%-0.45% SALINE 1,000 ML IV SCH ×2 (09:51→22:41)
[2021-05-13] MEDS: ENOXAPARIN NA (PORCINE) 40 MG/0.4 ML DISP.SYRIN SQ SCH (09:54)
[2021-05-13] MEDS: amLODIPine BESYLATE 5 MG TABLET (FP) PO SCH (09:54)
[2021-05-13] MEDS: AZITHROMYCIN IVPB 250 MG in DEXTROSE 5%-WATER - 250 ML IVPB SCH (12:41)
[2021-05-14] MEDS ORDERED: PIPERACILLIN/TAZOBACTAM 3.375 GM VIAL IVPB ONE ×3 (01:14→18:04)
[2021-05-14] MEDS ORDERED: DEXTROSE 5%-WATER - 50 ML IVPB ONE ×3 (01:14→18:04)
[2021-05-14] MEDS: PIPERACILLIN/TAZOB 3.375 GM 3.375 GM in DEXTROSE 5%-WATER - 50 ML IVPB SCH ×3 (01:23→18:11)
[2021-05-14] MEDS ORDERED: CYCLOBENZAPRINE HCL 10 MG TABLET (FP) PO ONE (03:00)
[2021-05-14] MEDS: ENOXAPARIN NA (PORCINE) 40 MG/0.4 ML DISP.SYRIN SQ SCH (09:51)
[2021-05-14] MEDS: amLODIPine BESYLATE 5 MG TABLET (FP) PO SCH (09:51)
[2021-05-14 10:24] LABS: BASO % 0.7 % (0-2.0); EOS % 4.4 % (0-4.5); HEMATOCRIT 34.2 % (32.4-45.2); HEMOGLOBIN 11.6 GM/dL (10.7-15.3); LYMPH % 27.8 % (8-40); MCH 29.7 pg (25.7-33.7); MCHC 33.8 g/dl (32.0-36.0); MEAN CELL VOLUME 87.9 fl (80-96); MEAN PLT VOLUME 7.4 fl (7.5-11.1); NEUT % 60.1 % (42.8-82.8); PLATELET COUNT 314 10^3/uL (134-434); RDW 14.2 % (11.6-15.6); WHITE BLOOD COUNT 8.2 K/mm3 (4.0-10.0)
[2021-05-14 10:50] LABS: BLOOD UREA NITROGEN 9.3 mg/dL (7-18); CALCIUM 8.4 mg/dL (8.5-10.1)
[2021-05-14 10:53] LABS: BILIRUBIN,TOTAL 0.4 mg/dL (0.2-1); CREATININE 1.1 mg/dL (0.55-1.3); TOT PROT 7.2 g/dl (6.4-8.2)
[2021-05-15] MEDS ORDERED: PIPERACILLIN/TAZOBACTAM 3.375 GM VIAL IVPB ONE ×2 (01:19→09:52)
[2021-05-15] MEDS ORDERED: DEXTROSE 5%-WATER - 50 ML IVPB ONE ×2 (01:19→09:52)
[2021-05-15] MEDS: PIPERACILLIN/TAZOB 3.375 GM 3.375 GM in DEXTROSE 5%-WATER - 50 ML IVPB SCH ×2 (02:12→09:57)
[2021-05-15] MEDS: amLODIPine BESYLATE 5 MG TABLET (FP) PO SCH (09:57)
[2021-05-15] MEDS: ENOXAPARIN NA (PORCINE) 40 MG/0.4 ML DISP.SYRIN SQ SCH (09:57)
[2021-05-15] MEDS ORDERED: AMOX TR/POT CLAV 875MG/125MG TABLETS (FP) PO SCH (17:30)
[2021-05-15 17:52] VITALS: BP 139/89; PULSE 93; TEMP 98.4
== END 2021-05-15 18:14 | disposition home or self-care (01) | DRG 178 ==
LOC: JER 20:16 → JERBED 05-10 04:50 → J5S 05-10 09:05
PROVIDERS: ADMIT Internal Medicine; ATTEND Internal Medicine
DX: J69.0 Pneumonitis due to inhalation of food and vomit (principal); N39.0 Urinary tract infection, site not specified; I10 Essential (primary) hypertension; M54.2 Cervicalgia; R10.11 Right upper quadrant pain; R51.9 Headache, unspecified; M54.12 Radiculopathy, cervical region; G62.9 Polyneuropathy, unspecified; E66.8 Other obesity; Z68.37 Body mass index [BMI] 37.0-37.9, adult; E78.5 Hyperlipidemia, unspecified; K21.9 Gastro-esophageal reflux disease without esophagitis; D36.9 Benign neoplasm, unspecified site; D72.829 Elevated white blood cell count, unspecified; D64.9 Anemia, unspecified; M96.1 Postlaminectomy syndrome, not elsewhere classified; T17.908A Unspecified foreign body in respiratory tract, part unspecified causing other injury, initial encounter
CPT/HCPCS: 36415; 70450-TC; 71045-TC-FY; 74177-TC; 76705-TC; 80053; 81003; 82550; 82553; 82803; 83605; 84484; 85025; 85610; 85730; 87040; 87086; 87899; 93005; 93010; 94010; 99284-25; 99285-25; C9803; J0131; U0003; U0005

== ENCOUNTER 2021-09-11 02:55 | Emergency (ER) | payer OTHER, BC ==
[2021-09-11 03:32] VITALS: BP 119/79; PULSE 109; TEMP 98; BMI 37.1
[2021-09-11] MEDS ORDERED: ONDANSETRON 4 MG/2 ML VIAL IVPUSH ONE (03:57)
[2021-09-11] MEDS ORDERED: MAG HYDROX/AL HYDROX/SIMETH -MYLANTA- ORAL SUSPENSION PO ONE (03:57)
[2021-09-11] MEDS ORDERED: FAMOTIDINE 20 MG/50 ML IVPB 20 MG/50 ML MG IVPB ONE (03:57)
[2021-09-11] MEDS ORDERED: SODIUM CHLORIDE 0.9% 500 ML INFUS.BAG IV ONE (03:57)
[2021-09-11] MEDS ORDERED: ONDANSETRON 4 MG/2 ML VIAL ONE (04:00)
[2021-09-11] MEDS ORDERED: MAG HYDROX/AL HYDROX/SIMETH 30 ML UNIT-DOSE CUP ONE (04:00)
[2021-09-11] MEDS ORDERED: FAMOTIDINE/PF 20 MG/2 ML VIAL ONE (04:01)
[2021-09-11 04:42] LABS: BASO % 0.3 % (0-2.0); EOS % 2.5 % (0-4.5); HEMATOCRIT 37.6 % (32.4-45.2); HEMOGLOBIN 12.5 GM/dL (10.7-15.3); LYMPH % 20.6 % (8-40); MCH 28.9 pg (25.7-33.7); MCHC 33.1 g/dl (32.0-36.0); MEAN CELL VOLUME 87.1 fl (80-96); MEAN PLT VOLUME 7.9 fl (7.5-11.1); MONO % 9.3 % (3.8-10.2); NEUT % 67.3 % (42.8-82.8); PLATELET COUNT 247 10^3/uL (134-434); RBC 4.32 M/mm3 (3.60-5.2); RDW 14.2 % (11.6-15.6); WHITE BLOOD COUNT 11.3 K/mm3 (4.0-10.0)
[2021-09-11 05:00] LABS: CHLORIDE 109 mmol/L (98-107); SODIUM 140 mmol/L (136-145)
[2021-09-11 05:03] LABS: ALBUMIN 3.3 g/dl (3.4-5.0); ANION GAP 7 MMOL/L (8-16); BLOOD UREA NITROGEN 21.8 mg/dL (7-18); CALCIUM 8.6 mg/dL (8.5-10.1); CO2 25 mmol/L (21-32); GLUCOSE,RANDOM 118 mg/dL (74-106); LIPASE 70 U/L (73-393)
[2021-09-11 05:06] LABS: CREATININE 1.2 mg/dL (0.55-1.3); SGOT/AST 37 U/L (15-37); SGPT/ALT 26 U/L (13-61)
[2021-09-11 05:08] LABS: BILIRUBIN,TOTAL 0.4 mg/dL (0.2-1); TOT PROT 7.3 g/dl (6.4-8.2)
[2021-09-11 05:09] LABS: ALK PHOS 66 U/L (45-117)
[2021-09-11 05:23] LABS: EPI CELLS 18 /uL (0-25.1); HYALINE CASTS 1 /uL (0-3.1); URINE APPEARANCE CLEAR; URINE BACTERIA 266 /uL (0-1359); URINE BILIRUBIN NEGATIVE (NEGATIVE); URINE COLOR YELLOW; URINE GLUCOSE (UA) NEGATIVE (NEGATIVE); URINE KETONE TRACE (NEGATIVE); URINE LEUK ESTERASE 1+ (NEGATIVE); URINE NITRITE NEGATIVE (NEGATIVE); URINE PROTEIN TRACE (NEGATIVE); URINE RBC 8 /uL (0-23.9); URINE UROBILINOGEN 0.2 mg/dL (0.2-1.0); URINE WBC 33 /uL (0-25.8)
== END 2021-09-11 07:08 | disposition home or self-care (01) ==
LOC: JER 02:55
PROC: 3E033GC Introduction of Other Therapeutic Substance into Peripheral Vein, Percutaneous Approach (ICD-10-PCS; principal; 2021-09-11)
PROC: 3E033GC Introduction of Other Therapeutic Substance into Peripheral Vein, Percutaneous Approach (ICD-10-PCS; 2021-09-11)
DX: R10.84 Generalized abdominal pain (principal); R19.7 Diarrhea, unspecified
CPT/HCPCS: 36415; 74177-TC; 80053; 81003; 83605; 83690; 84484; 85025; 87086; 93005; 93010; 99285-25; C9803; Q9967; U0003; U0005

== ENCOUNTER 2021-10-23 17:05 | Emergency (ER) | payer OTHER, BC ==
[2021-10-23 17:15] VITALS: BP 138/83; PULSE 105; TEMP 98.1; BMI 37.1
[2021-10-23] MEDS ORDERED: ACETAMINOPHEN 325 MG TABLET (FP) PO ONE (17:49)
[2021-10-23] MEDS ORDERED: ACETAMINOPHEN 325 MG TABLET (FP) ONE (18:04)
== END 2021-10-23 19:16 | disposition home or self-care (01) ==
LOC: JERFT 17:05
DX: M25.562 Pain in left knee (principal); S80.912A Unspecified superficial injury of left knee, initial encounter; W01.0XXA Fall on same level from slipping, tripping and stumbling without subsequent striking against object, initial encounter; Y92.000 Kitchen of unspecified non-institutional (private) residence as the place of occurrence of the external cause
CPT/HCPCS: 73564-TC-LT-FY; 99283-25

== ENCOUNTER 2022-03-30 14:37 | Emergency (ER) | payer OTHER, BC ==
[2022-03-30 14:49] VITALS: BP 137/87; PULSE 104; TEMP 98.3; BMI 37.4
[2022-03-30 17:00] LABS: BASO % 0.5 % (0-2.0); EOS % 1.6 % (0-4.5); HEMATOCRIT 37.8 % (32.4-45.2); HEMOGLOBIN 12.5 GM/dL (10.7-15.3); LYMPH % 35.5 % (8-40); MCH 29.4 pg (25.7-33.7); MCHC 32.9 g/dl (32.0-36.0); MEAN CELL VOLUME 89.2 fl (80-96); MEAN PLT VOLUME 7.3 fl (7.5-11.1); MONO % 5.4 % (3.8-10.2); PLATELET COUNT 296 10^3/uL (134-434); RBC 4.24 M/mm3 (3.60-5.2); RDW 14.8 % (11.6-15.6); WHITE BLOOD COUNT 9.4 K/mm3 (4.0-10.0)
[2022-03-30 17:07] LABS: INR 0.98 (0.83-1.09); PROTHROMBIN TIME (PATIENT) 11.3 SEC (9.7-13.0)
[2022-03-30 17:12] LABS: EPI CELLS 8 /uL (0-25.1); HYALINE CASTS 0 /uL (0-3.1); URINE APPEARANCE CLEAR; URINE BACTERIA 35 /uL (0-1359); URINE BILIRUBIN NEGATIVE (NEGATIVE); URINE COLOR YELLOW; URINE GLUCOSE (UA) NEGATIVE (NEGATIVE); URINE KETONE NEGATIVE (NEGATIVE); URINE LEUK ESTERASE NEGATIVE (NEGATIVE); URINE NITRITE NEGATIVE (NEGATIVE); URINE PROTEIN NEGATIVE (NEGATIVE); URINE RBC 2 /uL (0-23.9); URINE UROBILINOGEN 0.2 mg/dL (0.2-1.0); URINE WBC 2 /uL (0-25.8)
[2022-03-30 17:53] LABS: CALCIUM 8.9 mg/dL (8.5-10.1)
[2022-03-30 17:54] LABS: ALBUMIN 3.7 g/dl (3.4-5.0); BLOOD UREA NITROGEN 21.4 mg/dL (7-18)
[2022-03-30 17:57] LABS: CREATININE 1.2 mg/dL (0.55-1.3)
[2022-03-30 17:59] LABS: BILIRUBIN,TOTAL 0.4 mg/dL (0.2-1)
== END 2022-03-30 20:26 | disposition home or self-care (01) ==
LOC: JER 14:37
DX: N95.0 Postmenopausal bleeding (principal); N93.8 Other specified abnormal uterine and vaginal bleeding; D25.9 Leiomyoma of uterus, unspecified
CPT/HCPCS: 36415; 76830-TC; 80053; 81003; 84703; 85025; 85610; 85730; 86850; 86900; 86901; 99284-25

== ENCOUNTER 2022-07-25 08:37 | Emergency (ER) | payer OTHER, BC ==
[2022-07-25 08:49] VITALS: BP 152/98; PULSE 94; RESP 18; TEMP 98; BMI 39.1
== END 2022-07-25 10:59 | disposition home or self-care (01) ==
LOC: JER 08:37
DX: J02.9 Acute pharyngitis, unspecified (principal)
CPT/HCPCS: 0241U-QW; 99283-25

== ENCOUNTER 2022-10-29 04:35 | Emergency (ER) | payer OTHER, BC ==
[2022-10-29 04:44] VITALS: BP 106/67; PULSE 100; RESP 18; TEMP 98.2; BMI 33.3
[2022-10-29] MEDS ORDERED: METOCLOPRAMIDE HCL 10 MG TABLET (FP) PO ONE ×2 (07:41→08:02)
[2022-10-29] MEDS ORDERED: ACETAMINOPHEN 325 MG TABLET (FP) PO ONE (07:41)
[2022-10-29] MEDS ORDERED: ACETAMINOPHEN 325 MG TABLET (FP) ONE (08:02)
== END 2022-10-29 10:09 | disposition home or self-care (01) ==
LOC: JER 04:35
DX: R05.1 Acute cough (principal); R51.9 Headache, unspecified
CPT/HCPCS: 0241U-QW; 93005; 93010; 99284-25

== ENCOUNTER 2023-01-26 09:27 | Emergency (ER) | payer OTHER, BC ==
[2023-01-26 09:43] VITALS: BMI 38.2
[2023-01-26] MEDS ORDERED: MAG HYDROX/AL HYDROX/SIMETH -MYLANTA- ORAL SUSPENSION PO ONE (09:59)
[2023-01-26] MEDS ORDERED: FAMOTIDINE 20 MG/50 ML IVPB 20 MG/50 ML MG IVPB ONE ×2 (09:59→10:32)
[2023-01-26] MEDS ORDERED: ONDANSETRON 4 MG/2 ML VIAL IVPUSH ONE ×2 (09:59→16:40)
[2023-01-26] MEDS ORDERED: ACETAMINOPHEN 1000 MG/100 ML BAG IVPB ONE (09:59)
[2023-01-26] MEDS ORDERED: SODIUM CHLORIDE 0.9% 1000 ML INFUS.BAG IV ONE (10:04)
[2023-01-26] MEDS ORDERED: ACETAMINOPHEN INJECTION 100 ML IVPB ONE (10:31)
[2023-01-26] MEDS ORDERED: ONDANSETRON 4 MG/2 ML VIAL ONE ×2 (10:32→17:29)
[2023-01-26] MEDS ORDERED: MAG HYDROX/AL HYDROX/SIMETH 30 ML UNIT-DOSE CUP ONE (10:32)
[2023-01-26 10:36] LABS: BASO % 0.6 % (0-2.0); EOS % 3.2 % (0-4.5); HEMATOCRIT 36.4 % (32.4-45.2); HEMOGLOBIN 12.4 GM/dL (10.7-15.3); LYMPH % 26.4 % (8-40); MCH 29.2 pg (25.7-33.7); MCHC 34.1 g/dl (32.0-36.0); MEAN CELL VOLUME 85.8 fl (80-96); MEAN PLT VOLUME 7.5 fl (7.5-11.1); MONO % 5.1 % (3.8-10.2); NEUT % 64.7 % (42.8-82.8); PLATELET COUNT 285 10^3/uL (134-434); RBC 4.25 M/mm3 (3.60-5.2); WHITE BLOOD COUNT 9.4 K/mm3 (4.0-10.0)
[2023-01-26 11:09] LABS: CALCIUM 8.9 mg/dL (8.5-10.1)
[2023-01-26 11:10] LABS: ALBUMIN 3.4 g/dl (3.4-5.0); BLOOD UREA NITROGEN 14.5 mg/dL (7-18)
[2023-01-26 11:13] LABS: CREATININE 0.9 mg/dL (0.55-1.3)
[2023-01-26 11:14] LABS: BILIRUBIN,TOTAL 0.4 mg/dL (0.2-1); TOT PROT 7.6 g/dl (6.4-8.2)
[2023-01-26 15:50] VITALS: BP 147/88; PULSE 84; RESP 20; TEMP 97.2
== END 2023-01-26 17:48 | disposition home or self-care (01) ==
LOC: JER 09:27
PROC: 3E033GC Introduction of Other Therapeutic Substance into Peripheral Vein, Percutaneous Approach (ICD-10-PCS; principal; 2023-01-26)
PROC: 3E033GC Introduction of Other Therapeutic Substance into Peripheral Vein, Percutaneous Approach (ICD-10-PCS; 2023-01-26)
PROC: 3E033GC Introduction of Other Therapeutic Substance into Peripheral Vein, Percutaneous Approach (ICD-10-PCS; 2023-01-26)
PROC: 3E033GC Introduction of Other Therapeutic Substance into Peripheral Vein, Percutaneous Approach (ICD-10-PCS; 2023-01-26)
DX: R10.13 Epigastric pain (principal); R11.2 Nausea with vomiting, unspecified; R10.11 Right upper quadrant pain; Z20.822 Contact with and (suspected) exposure to COVID-19
CPT/HCPCS: 0241U-QW; 36415; 71046-TC-FY; 74177-TC; 76705-TC; 80053; 83690; 84484; 85025; 93005; 93010; 99285-25; Q9967

== ENCOUNTER 2023-07-17 08:56 | Emergency (ER) | payer OTHER, BC ==
[2023-07-17 09:03] VITALS: BP 144/91; PULSE 94; RESP 17; TEMP 98.1; BMI 37.9
[2023-07-17] MEDS ORDERED: DEXAMETHASONE SOD PHOSPHATE 10 MG/1 ML VIAL IM ONE (09:53)
[2023-07-17] MEDS ORDERED: DEXAMETHASONE SOD PHOSPHATE 10 MG/1 ML VIAL ONE (09:54)
== END 2023-07-17 11:11 | disposition home or self-care (01) ==
LOC: JER 08:56 → JERFT 08:56
PROC: 3E023GC Introduction of Other Therapeutic Substance into Muscle, Percutaneous Approach (ICD-10-PCS; principal; 2023-07-17)
DX: M54.2 Cervicalgia (principal); R51.9 Headache, unspecified; R59.0 Localized enlarged lymph nodes
CPT/HCPCS: 99284-25; J1100

== ENCOUNTER 2023-08-21 02:49 | Emergency (ER) | payer OTHER, BC ==
[2023-08-21 02:59] VITALS: BP 124/83; PULSE 97; RESP 20; TEMP 97.5; BMI 39.1
[2023-08-21] MEDS ORDERED: ONDANSETRON 4 MG/2 ML VIAL IVPUSH ONE (03:21)
[2023-08-21] MEDS ORDERED: ACETAMINOPHEN 1000 MG/100 ML BAG IVPB ONE (03:21)
[2023-08-21] MEDS ORDERED: FAMOTIDINE 20 MG/50 ML IVPB 20 MG/50 ML MG IVPB ONE ×2 (03:21→03:49)
[2023-08-21 03:39] LABS: BASO % 0.5 % (0-2.0); EOS % 2.9 % (0-4.5); HEMATOCRIT 40.1 % (32.4-45.2); HEMOGLOBIN 13.3 GM/dL (10.7-15.3); LYMPH % 31.7 % (8-40); MCH 28.9 pg (25.7-33.7); MCHC 33.1 g/dl (32.0-36.0); MEAN CELL VOLUME 87.3 fl (80-96); MEAN PLT VOLUME 7.7 fl (7.5-11.1); MONO % 7.1 % (3.8-10.2); NEUT % 57.8 % (42.8-82.8); PLATELET COUNT 285 10^3/uL (134-434); RBC 4.59 M/mm3 (3.60-5.2); RDW 14.1 % (11.6-15.6); WHITE BLOOD COUNT 8.6 K/mm3 (4.0-10.0)
[2023-08-21] MEDS ORDERED: ONDANSETRON 4 MG/2 ML VIAL ONE (03:49)
[2023-08-21] MEDS ORDERED: ACETAMINOPHEN INJECTION 100 ML IVPB ONE (03:49)
[2023-08-21 04:04] LABS: POTASSIUM 4.1 mmol/L (3.5-5.1)
[2023-08-21 04:06] LABS: BLOOD UREA NITROGEN 15.3 mg/dL (7-18); CALCIUM 9.3 mg/dL (8.5-10.1)
[2023-08-21 04:07] LABS: ALBUMIN 3.4 g/dl (3.4-5.0)
[2023-08-21 04:07] LABS: URINE APPEARANCE CLEAR; URINE BILIRUBIN NEGATIVE (NEGATIVE); URINE COLOR YELLOW; URINE GLUCOSE (UA) NEGATIVE (NEGATIVE); URINE KETONE NEGATIVE (NEGATIVE); URINE LEUK ESTERASE NEGATIVE (NEGATIVE); URINE NITRITE NEGATIVE (NEGATIVE); URINE PROTEIN NEGATIVE (NEGATIVE)
[2023-08-21 04:09] LABS: CREATININE 1.2 mg/dL (0.55-1.3)
[2023-08-21 04:11] LABS: BILIRUBIN,TOTAL 0.4 mg/dL (0.2-1); TOT PROT 7.4 g/dl (6.4-8.2)
[2023-08-21] MEDS ORDERED: SODIUM CHLORIDE 0.9% 500 ML INFUS.BAG IV ONE (04:20)
[2023-08-21] MEDS ORDERED: MAG HYDROX/AL HYDROX/SIMETH 30 ML UNIT-DOSE CUP PO ONE (04:20)
[2023-08-21] MEDS ORDERED: MAG HYDROX/AL HYDROX/SIMETH 30 ML UNIT-DOSE CUP ONE (04:21)
== END 2023-08-21 05:00 | disposition home or self-care (01) ==
LOC: JER 02:49
PROC: 3E033GC Introduction of Other Therapeutic Substance into Peripheral Vein, Percutaneous Approach (ICD-10-PCS; principal; 2023-08-21)
PROC: 3E033NZ Introduction of Analgesics, Hypnotics, Sedatives into Peripheral Vein, Percutaneous Approach (ICD-10-PCS; 2023-08-21)
PROC: 3E033GC Introduction of Other Therapeutic Substance into Peripheral Vein, Percutaneous Approach (ICD-10-PCS; 2023-08-21)
DX: R10.13 Epigastric pain (principal); R11.0 Nausea; R19.7 Diarrhea, unspecified; Z20.822 Contact with and (suspected) exposure to COVID-19
CPT/HCPCS: 0241U-QW; 36415; 71046-TC-FY; 80053; 81003; 83690; 83735; 84484; 85025; 93005; 93010; 99285-25

== ENCOUNTER 2023-10-10 12:54 | Emergency (ER) | payer OTHER, BC ==
[2023-10-10 13:12] VITALS: BP 129/95; PULSE 110; RESP 16; TEMP 98; BMI 38.2
== END 2023-10-10 15:13 | disposition home or self-care (01) ==
LOC: JERFT 12:54
DX: R50.9 Fever, unspecified (principal); R51.9 Headache, unspecified; R09.81 Nasal congestion; J02.9 Acute pharyngitis, unspecified; R05.9 Cough, unspecified; U07.1 COVID-19
CPT/HCPCS: 0241U-QW; 99283-25

== ENCOUNTER 2024-05-16 10:41 | Emergency (ER) | payer OTHER, BC ==
[2024-05-16 10:50] VITALS: BP 145/85; PULSE 98; RESP 18; TEMP 97.7; BMI 37.9
[2024-05-16] MEDS ORDERED: KETOROLAC TROMETHAMINE 15 MG/ML VIAL ONE (11:13)
[2024-05-16] MEDS ORDERED: ACETAMINOPHEN 500 MG TABLET (FP) ONE (11:13)
[2024-05-16] MEDS ORDERED: LIDOCAINE 4% PATCH TP ONE (11:13)
[2024-05-16] MEDS: LIDOCAINE 4% PATCH TP ONE (11:28)
[2024-05-16] MEDS: ACETAMINOPHEN 500 MG TABLET (FP) PO ONE (11:29)
[2024-05-16] MEDS: KETOROLAC TROMETHAMINE 15 MG/ML VIAL IM ONE (11:29)
[2024-05-16 11:32] LABS: BASO % 0.7 % (0-2.0); EOS % 3.4 % (0-4.5); HEMATOCRIT 38.3 % (32.4-45.2); HEMOGLOBIN 12.9 GM/dL (10.7-15.3); LYMPH % 37.6 % (8-40); MCH 29.7 pg (25.7-33.7); MCHC 33.8 g/dl (32.0-36.0); MEAN CELL VOLUME 87.8 fl (80-96); MEAN PLT VOLUME 7.8 fl (7.5-11.1); MONO % 5.4 % (3.8-10.2); NEUT % 52.9 % (42.8-82.8); PLATELET COUNT 253 10^3/uL (134-434); RBC 4.36 M/mm3 (3.60-5.2); RDW 14.3 % (11.6-15.6); WHITE BLOOD COUNT 7.6 K/mm3 (4.0-10.0)
[2024-05-16 11:55] LABS: POTASSIUM 3.8 mmol/L (3.5-5.1)
[2024-05-16 11:57] LABS: ALBUMIN 3.6 g/dl (3.4-5.0); BLOOD UREA NITROGEN 15.2 mg/dL (7-18); CALCIUM 9.3 mg/dL (8.5-10.1)
[2024-05-16 12:01] LABS: CREATININE 1.2 mg/dL (0.55-1.3)
[2024-05-16 12:02] LABS: BILIRUBIN,TOTAL 0.5 mg/dL (0.2-1); TOT PROT 7.7 g/dl (6.4-8.2)
[2024-05-16] MEDS ORDERED: LIDOCAINE PATCH REMOVAL MC SCH (22:00)
== END 2024-05-16 13:50 | disposition home or self-care (01) ==
LOC: JERFT 10:41
PROC: 3E0133Z Introduction of Anti-inflammatory into Subcutaneous Tissue, Percutaneous Approach (ICD-10-PCS; principal; 2024-05-16)
DX: M19.012 Primary osteoarthritis, left shoulder (principal); M25.512 Pain in left shoulder
CPT/HCPCS: 36415; 73030-TC-LT-FY; 80053; 82550; 82553; 84484; 85025; 93005; 93010; 99285-25

== ENCOUNTER 2024-08-17 03:38 | Emergency (ER) | payer OTHER, BC ==
[2024-08-17 03:43] VITALS: BP 146/89; PULSE 102; RESP 18; TEMP 97.7; BMI 38.7
[2024-08-17] MEDS ORDERED: ONDANSETRON 4 MG/2 ML VIAL ONE ×2 (04:09→06:29)
[2024-08-17] MEDS ORDERED: ACETAMINOPHEN INJECTION 100 ML ONE (04:09)
[2024-08-17] MEDS: ONDANSETRON 4 MG/2 ML VIAL IVPUSH ONE ×2 (04:34→06:31)
[2024-08-17] MEDS: ACETAMINOPHEN 1000 MG/100 ML BAG IVPB ONE (04:34)
[2024-08-17 04:57] LABS: BASO % 0.5 % (0-2.0); EOS % 2.8 % (0-4.5); HEMATOCRIT 37.9 % (32.4-45.2); HEMOGLOBIN 12.6 GM/dL (10.7-15.3); MCH 29.3 pg (25.7-33.7); MCHC 33.2 g/dl (32.0-36.0); MEAN CELL VOLUME 88.3 fl (80-96); MEAN PLT VOLUME 7.9 fl (7.5-11.1); MONO % 5.9 % (3.8-10.2); NEUT % 63.8 % (42.8-82.8); PLATELET COUNT 263 10^3/uL (134-434); RBC 4.29 M/mm3 (3.60-5.2); RDW 14.3 % (11.6-15.6); WHITE BLOOD COUNT 9.2 K/mm3 (4.0-10.0)
[2024-08-17 05:05] LABS: INR 0.95 (0.83-1.09); PROTHROMBIN TIME (PATIENT) 10.7 SEC (9.7-13.0)
[2024-08-17 05:08] LABS: ACTIVATED PTT 33.2 SECONDS (25.2-36.5)
[2024-08-17 05:25] LABS: POTASSIUM 3.9 mmol/L (3.5-5.1)
[2024-08-17 05:27] LABS: CALCIUM 8.9 mg/dL (8.5-10.1)
[2024-08-17 05:28] LABS: ALBUMIN 3.4 g/dl (3.4-5.0); MAGNESIUM 1.9 mg/dL (1.8-2.4)
[2024-08-17 05:31] LABS: CREATININE 0.9 mg/dL (0.55-1.3)
[2024-08-17 05:32] LABS: BILIRUBIN,TOTAL 0.4 mg/dL (0.2-1); TOT PROT 7.6 g/dl (6.4-8.2)
[2024-08-17 06:12] LABS: LACTIC ACID 2.4 mmol/L (0.4-2.0)
[2024-08-17] MEDS: LACTATED RINGERS SOLUTION 1000 ML INFUS.BAG IV ONE (06:31)
[2024-08-17] MEDS ORDERED: KETOROLAC TROMETHAMINE 15 MG/ML VIAL ONE ×2 (07:51→10:27)
[2024-08-17] MEDS: KETOROLAC TROMETHAMINE 15 MG/ML VIAL IVPUSH ONE ×2 (08:02→10:34)
== END 2024-08-17 12:17 | disposition home or self-care (01) ==
LOC: JER 03:38
PROC: 3E033NZ Introduction of Analgesics, Hypnotics, Sedatives into Peripheral Vein, Percutaneous Approach (ICD-10-PCS; principal; 2024-08-17)
PROC: 3E0333Z Introduction of Anti-inflammatory into Peripheral Vein, Percutaneous Approach (ICD-10-PCS; 2024-08-17)
PROC: 3E0333Z Introduction of Anti-inflammatory into Peripheral Vein, Percutaneous Approach (ICD-10-PCS; 2024-08-17)
PROC: 3E033GC Introduction of Other Therapeutic Substance into Peripheral Vein, Percutaneous Approach (ICD-10-PCS; 2024-08-17)
PROC: 3E033GC Introduction of Other Therapeutic Substance into Peripheral Vein, Percutaneous Approach (ICD-10-PCS; 2024-08-17)
DX: K43.9 Ventral hernia without obstruction or gangrene (principal); R11.0 Nausea; R10.13 Epigastric pain
CPT/HCPCS: 36415; 71045-TC-FY; 74177-TC; 80053; 83605; 83690; 83735; 84484; 84703; 85025; 85610; 85730; 86850; 86900; 86901; 93005; 93010; 96374; 96375; 96376; 99285-25; J0131

== ENCOUNTER 2024-09-30 05:00 | Emergency (ER) | payer OTHER, BC ==
[2024-09-30 05:06] VITALS: BP 135/91; PULSE 97; RESP 18; TEMP 98.4; BMI 39.1
[2024-09-30] MEDS ORDERED: MAG HYDROX/AL HYDROX/SIMETH 30 ML UNIT-DOSE CUP ONE (05:53)
[2024-09-30] MEDS ORDERED: FAMOTIDINE 20 MG TABLET ONE (05:53)
[2024-09-30] MEDS: FAMOTIDINE 20 MG TABLET PO ONE (05:57)
[2024-09-30] MEDS: MAG HYDROX/AL HYDROX/SIMETH 30 ML UNIT-DOSE CUP PO ONE (05:57)
[2024-09-30] MEDS ORDERED: DICYCLOMINE HCL 10 MG CAPSULE ONE (06:29)
[2024-09-30] MEDS: DICYCLOMINE HCL 20 MG TABLET PO ONE (06:31)
== END 2024-09-30 06:36 | disposition home or self-care (01) ==
LOC: JER 05:00
DX: R10.13 Epigastric pain (principal); G89.29 Other chronic pain; R11.0 Nausea; K59.00 Constipation, unspecified
CPT/HCPCS: 93005; 93010; 99283-25